=== PATIENT | female | born 1935 | race Caucasian/White ===

== ENCOUNTER → 2017-09-12 | Outpatient (CLI) | payer MEDICARE, BC ==
--- NOTE | 2017-09-12 13:14 | US ---
EXAMINATION TYPE: US venous doppler duplex LE RT DATE OF EXAM: 09/12/2017 12:38 PM COMPARISON: NONE CLINICAL HISTORY: M79.661 RT CALF PAIN. SIDE PERFORMED: Right TECHNIQUE: The lower extremity deep venous system is examined utilizing real time linear array sonog trina with graded compression, doppler sonography and color-flow sonography. VESSELS IMAGED: External Iliac Vein (EIV) Common Femoral Vein Deep Femoral Vein Greater Saphenous Vein * Femoral Vein Popliteal Vein Small Saphenous Vein * Proximal Calf Veins (* superficial vessels) Limited due to Pt ability to hold leg positions due to pain and narrow vessels. Right Leg: Negative for DVT Grayscale, color doppler, spectral doppler imaging performed of the deep veins of the right lower ext remity. There is normal flow, compressibility, vascular waveforms. IMPRESSION: No sonographic evidence of deep venous thrombosis within the right lower extremity.
== END | disposition home or self-care (01) ==
LOC: RADUSWWP 12:02
PROVIDERS: ATTEND Internal Medicine Rheumatology
DX: M79.661 Pain in right lower leg (principal)

== ENCOUNTER → 2018-05-05 | Outpatient (CLI) | payer MEDICARE, BC ==
--- NOTE | 2018-05-06 06:53 | CT ---
EXAMINATION TYPE: CT soft tissue neck w con DATE OF EXAM: 05/05/2018 COMPARISON: None HISTORY: 83-year-old female Left side lump and swelling TECHNIQUE: Contiguous axial scanning of the soft tissues of the neck performed with IV Contrast, yousif ent injected with 100 mL of Isovue 300. Coronal/sagittal reconstructions performed. CT DLP: 372 mGycm Automated exposure control for dose reduction was used. FINDINGS: Visualized intracranial structures, orbits and globes, paranasal sinuses, and mastoid air cells appea r clear. The nasopharynx is clear. Retropharyngeal course of the right ICA. Oropharynx appears clear. The epiglottis and prevertebral soft tissues are within normal limits. The glottic and subglottic structures are clear. Moderate emphysematous change in the visualized uppe r lungs. Subcentimeter hypodense nodules within the thyroid gland measuring up to 7 mm. The submandibular glands are satisfactory. Mild atrophy of the parotid glands. Atherosclerotic calcifications at the right carotid bifurcation probably causing a moderate stenosis at the level of the carotid bulb. There is some incidental focal ectasia and tortuosity of the left external jugular vein along the pos terior margin of the left sternocleidomastoid at the mid neck level, refer to axial image 49. No cervical lymphadenopathy or suspicious neck masses identified. Bones: Moderate spondylotic change mid to lower cervical spine. IMPRESSION: 1. SYMMETRICAL APPEARANCE TO THE SUBMANDIBULAR GLANDS AND BILATERAL SYMMETRICAL, MILDLY ATROPHIC PARO TID GLANDS. NO SIALOLITH OR ABNORMAL INFLAMMATION IS IDENTIFIED. 2. NO CERVICAL LYMPHADENOPATHY OR SUSPICIOUS NECK MASSES SEEN. 3. ATHEROSCLEROTIC CALCIFICATIONS AT THE RIGHT CAROTID BIFURCATION LIKELY EXAGGERATING TO A MODERATE PROXIMAL RIGHT ICA STENOSIS. 4. COPD.
== END ==
LOC: RADCTMAIN 12:39
PROVIDERS: ATTEND Otolaryngology
DX: I65.21 Occlusion and stenosis of right carotid artery (principal); R93.89 Abnormal findings on diagnostic imaging of other specified body structures
CPT/HCPCS: 82565; 84520; 70491; 36415; Q9967

== ENCOUNTER → 2018-05-26 | Outpatient (CLI) | payer MEDICARE, BC ==
--- NOTE | 2018-05-26 11:08 | US ---
EXAMINATION TYPE: US thyroid st tissue head/neck DATE OF EXAM: 05/26/2018 COMPARISON: US 2016, CT 2019 CLINICAL HISTORY: E04.2 Nontoxic multinodular goiter. Follow up thyroid nodules, on thyroid meds GLAND SIZE: Right Lobe: 2.9 x 1.3 x 1.3 cm Overall Parenchyma: heterogenous Left Lobe: 2.9 x 1.0 x 1.1 cm Overall Parenchyma: heterogeneous Isthmus Thickness: 0.2 cm NODULES RIGHT: # of nodules measured on right: 4 1. 0.9 X 0.9 x 0.8 cm hypoechoic complex nodule at the upper pole with poorly defined margins. This nodule is wider than tall and shows intranodular vascularity. Prior size: 0.9 x 0.8 x 1.0 cm 2. 0.6 X 0.5 x 0.5 cm hypoechoic solid nodule at the upper pole with well-defined margins. This nodu le is wider than tall and shows intranodular vascularity. Prior size: 0.6 x 0.4 x 0.6 cm 3. 0.6 X 0.4 x 0.6 cm hypoechoic solid nodule at the lower pole with well-defined margins. This nodu le is wider than tall and shows intranodular vascularity. Prior size: 0.6 x 0.4 x 0.6 cm 4. 0.8 X 0.4 x 0.7 cm hypoechoic cystic nodule at the mid pole with well-defined margins. This nodul e is wider than tall and shows no intranodular vascularity. Prior size: no previous LEFT: # of nodules measured on left: 2 1. 0.7 X 0.7 x 0.5 cm hypoechoic solid nodule at the mid pole with well-defined margins. This nodul e is taller than wide and shows intranodular vascularity. Prior size: 0.8 x 0.7 x 0.6 cm 2. 0.6 X 0.4 x 0.6 cm hypoechoic cystic nodule at the upper pole with well-defined margins. This nod ule is wider than tall and shows no intranodular vascularity. Prior size: 0.7 x 0.4 x 0.5 cm ISTHMUS: # of nodules measured in the isthmus: 0 Bilateral neck scanned, no evidence of lymphadenopathy. Heterogeneous small size thyroid redemonstrated with scattered small bilateral nodules. IMPRESSION: As above, no new greater than 1 cm solid or cystic nodules identified. EXAMINATION TYPE: US thyroid st tissue head/neck DATE OF EXAM: 05/26/2018 COMPARISON: NONE CLINICAL HISTORY: E04.2 Nontoxic multinodular goiter. GLAND SIZE: Right Lobe: cm Overall Parenchyma: Left Lobe: cm Overall Parenchyma: Isthmus Thickness: cm NODULES RIGHT: # of nodules measured on right: 1. X x cm nodule at the pole with margins; . This nodule is and shows . Prior size: x x cm 2. X x cm nodule at the pole with margins; . This nodule is and shows . Prior size: x x cm 3. X x cm nodule at the pole with margins; . This nodule is and shows . Prior size: x x cm 4. X x cm nodule at the pole with margins; . This nodule is and shows . Prior size: x x cm LEFT: # of nodules measured on left: 1. X x cm nodule at the pole with margins; . This nodule is and shows . Prior size: x x cm 2. X x cm nodule at the pole with margins; . This nodule is and shows . Prior size: x x cm 3. X x cm nodule at the pole with margins; . This nodule is and shows . Prior size: x x cm 4. X x cm nodule at the pole with margins; . This nodule is and shows . Prior size: x x cm ISTHMUS: # of nodules measured in the isthmus: 1. X x cm nodule at the pole with margins; . This nodule is and shows . Prior size: x x cm Bilateral neck scanned, no evidence of lymphadenopathy. IMPRESSION:
== END | disposition home or self-care (01) ==
LOC: RADUSWWP 10:11
PROVIDERS: ATTEND Internal Medicine Endocrinology, Diabetes & Metabolism
DX: E04.2 Nontoxic multinodular goiter (principal)
CPT/HCPCS: 76536

== ENCOUNTER 2018-07-18 10:39 | Day surgery (SDC) | payer MEDICARE, BC ==
[~2018-07-18 10:39] MED LIST: LACTATED RINGERS 1,000 ML IV SCH; LIDOCAINE 1% 20 ML VIAL (10MG/ML) FOR IV START INTRADERMA PRN
[2018-07-18 11:20] LABS: Glucose,Whole Blood 93 mg/dL (75-99)
[2018-07-18 11:23] VITALS: RESP 18; TEMP 98.1
[2018-07-18] MEDS ORDERED: LACTATED RINGERS 1,000 ML IV ONE (11:24)
[2018-07-18] MEDS ORDERED: PROPOFOL 10 MG/ML 20 ML VIAL IV ONE (12:22)
[2018-07-18] MEDS ORDERED: LIDOCAINE 1% INJ 10MG/ML (20 ML MDV) ONE (12:22)
--- NOTE | 2018-07-18 12:33 | P.PCN ---
Date of Procedure: 07/18/18 Procedure(s) Performed: BRIEF HISTORY: Patient is a 83-year-old, pleasant, female, scheduled for an upper endoscopy as a part of value should of intermittent dysphagia to solids. She does have long-standing history of GERD has been on Prilosec 20 mg daily for several years. She is scheduled for an upper endoscopy with possible dilation today. PROCEDURE PERFORMED: Esophagogastroduodenoscopy and biopsy. PREOPERATIVE DIAGNOSIS: Long-standing history of GERD and intermittent dysphagia to solidsIV sedation per anesthesia. PROCEDURE: After informed consent was obtained, the patient was brought into the endoscopy unit. IV sedation was administered by Anesthesia under continuous monitoring. Initially the Olympus GIF-140 video endoscope was inserted into the mouth. Esophagus intubated without any difficulty. It was gradually advanced into the stomach and duodenum and carefully examined. The bulb and the second part of the duodenum appeared normal. The scope at this time was withdrawn to the stomach, adequately insufflated with air, and upon careful examination, mucosa of the antrum had mild ascites and biopsies were done from this area. There was a large hiatal hernia noted and most of the body, cardia and the funwhere located intrathoracic daily.he scope was then withdrawn into the eso phagus. The GE junction was located at 30 cm from the incisors. The esophagus appeared normal. biopsies were done from the distal esophagus .There were no erosions or ulcerations seen and the patient tolerated the procedure well. IMPRESSION: 1. Large hiatal hernia 2. Mild antral gastritis 3. No evidence of esophagitis or esophageal stricture RECOMMENDATIONS: The findings of this examination were discussed with the patient as well as her family. She will continue with her current medications, advised on small frequent meals and follow antireflux measures.
[2018-07-18 12:53] VITALS: BP 182/68; PULSE 61
== END 2018-07-18 13:35 | disposition home or self-care (01) ==
LOC: ORWHC2ENDO 10:39
PROVIDERS: ATTEND Internal Medicine Gastroenterology
DX: K29.50 Unspecified chronic gastritis without bleeding (principal); K21.0 Gastro-esophageal reflux disease with esophagitis; K44.9 Diaphragmatic hernia without obstruction or gangrene; R18.8 Other ascites; R13.10 Dysphagia, unspecified; I10 Essential (primary) hypertension; E78.5 Hyperlipidemia, unspecified; E07.9 Disorder of thyroid, unspecified; Z79.890 Hormone replacement therapy; Z79.52 Long term (current) use of systemic steroids; Z79.899 Other long term (current) drug therapy
CPT/HCPCS: 88305; 43239; J2001; J2704

== ENCOUNTER → 2019-06-03 | Outpatient (CLI) | payer MEDICARE, BC ==
--- NOTE | 2019-06-03 13:56 | US ---
EXAMINATION TYPE: US thyroid st tissue head/neck DATE OF EXAM: 06/03/2019 COMPARISON: 05/26/2018 CLINICAL HISTORY: E04.2 Nontoxic multinodular goiter. Goiter GLAND SIZE: Right Lobe: 3.6 x 1.5 x 1.3 cm Overall Parenchyma: heterogenous Left Lobe: 3.4 x 0.9 x 1.4 cm Overall Parenchyma: heterogeneous Isthmus Thickness: 0.3 cm NODULES RIGHT: # of nodules measured on right: 4 1. 0.7 X 0.7 x 0.7 cm hypoechoic complex nodule at the upper pole with poorly defined margins; . T his nodule is wider than tall and shows intranodular vascularity. Prior size: 0.9 x 0.9 x 0.8 cm 2. 0.6 X 0.5 x 0.5 cm hypoechoic solid nodule at the upper pole with well-defined margins; . This n odule is wider than tall and shows intranodular vascularity. Prior size: 0.6 x 0.5 x 0.5 cm 3. 0.6 X 0.4 x 0.5 cm hypoechoic solid nodule at the lower pole with well-defined margins; . This n odule is wider than tall and shows intranodular vascularity. Prior size: 0.6 x 0.4 x 0.6 cm 4. 0.8 X 0.5 x 0.6 cm cystic nodule at the mid pole with well-defined margins; . This nodule is wid er than tall and shows no intranodular vascularity. Prior size: 0.8 x 0.4 x 0.7 cm LEFT: # of nodules measured on left: 2 1. 0.8 X 0.6 x 0.6 cm hypoechoic solid nodule at the mid pole with well-defined margins; . This no dule is taller than wide and shows intranodular vascularity. Prior size: 0.7 x 0.7 x 0.5 cm 2. 0.7 X 0.4 x 0.6 cm cystic nodule at the upper pole with well-defined margins; . This nodule is w ider than tall and shows no intranodular vascularity. Prior size: 0.6 x 0.4 x 0.6 cm ISTHMUS: # of nodules measured in the isthmus: 0 IMPRESSION: Correlate for thyroiditis. Multinodular thyroid noted with all nodules measuring less than 1 cm.
== END | disposition home or self-care (01) ==
LOC: RADUSMAIN 12:39
PROVIDERS: ATTEND Internal Medicine Endocrinology, Diabetes & Metabolism
DX: E04.2 Nontoxic multinodular goiter (principal)
CPT/HCPCS: 76536

== ENCOUNTER → 2019-06-03 | Outpatient (CLI) | payer MEDICARE, BC ==
[2019-06-03 14:10] LABS: Basophils % (A) 1 %; Eosinophils # (A) 0.2 k/uL (0-0.7); Eosinophils % (A) 2 %; HCT 39.3 % (34.0-46.0); HGB 12.7 gm/dL (11.4-16.0); Lymphocytes % (A) 26 %; MCH 29.7 pg (25.0-35.0); MCHC 32.4 g/dL (31.0-37.0); MCV 91.8 fL (80.0-100.0); Monocytes # (A) 0.6 k/uL (0-1.0); Monocytes % (A) 8 %; Neutrophils # (A) 4.7 k/uL (1.3-7.7); Neutrophils % (A) 61 %; Platelet Count 214 k/uL (150-450); RBC 4.28 m/uL (3.80-5.40); RDW 14.7 % (11.5-15.5); WBC 7.7 k/uL (3.8-10.6)
[2019-06-03 15:19] LABS: Erythrocyte Sedimentation Rate 28 mm/hr (0-20)
[2019-06-03 18:56] LABS: ALT 17 U/L (8-44); AST 30 U/L (13-35); African American GFR (CKD) 68.1 (60.0-200.0); C Reactive Protein <0.4 mg/dL (0.0-0.8); Non-African American GFR(CKD) 58.7 (60.0-200.0)
== END | disposition home or self-care (01) ==
LOC: LABWHC1 13:20
PROVIDERS: ATTEND Internal Medicine Endocrinology, Diabetes & Metabolism
DX: E03.8 Other specified hypothyroidism (principal); M05.79 Rheumatoid arthritis with rheumatoid factor of multiple sites without organ or systems involvement; Z79.899 Other long term (current) drug therapy
CPT/HCPCS: 36415; 82040; 82565; 84443; 84450; 84460; 84520; 85025; 85652; 86140

== ENCOUNTER → 2020-02-01 | Outpatient (CLI) | payer MEDICARE, BC ==
--- NOTE | 2020-02-03 11:22 | MM ---
Reason for exam: screening (asymptomatic). Last mammogram was performed 1 year and 10 months ago. History: Patient is postmenopausal and is nulliparous. Cyst aspiration of both breasts, 1989. Physical Findings: A clinical breast exam by your physician is recommended on an annual basis and results should be correlated with mammographic findings. MG 3D Screening Mammo W/Cad Bilateral CC and MLO view(s) were taken. Prior study comparison: April 07, 2018, mammogram, performed at [facility]. February 18, 2017, mammogram, performed at [facility]. The breast tissue is heterogeneously dense. This may lower the sensitivity of mammography. Benign appearing coarse calcifications in the right breast. No significant changes when compared with prior studies. ASSESSMENT: Benign, BI-RAD 2 RECOMMENDATION: Routine screening mammogram of both breasts in 1 year.
== END | disposition home or self-care (01) ==
LOC: RADMAMWWP 10:36
PROVIDERS: ATTEND Family Medicine
DX: Z12.31 Encounter for screening mammogram for malignant neoplasm of breast (principal)
CPT/HCPCS: 77063; 77067

== ENCOUNTER → 2020-05-02 | Outpatient (CLI) | payer MEDICARE, BC ==
--- NOTE | 2020-05-02 12:18 | FL ---
EXAMINATION TYPE: FL barium swallow DATE OF EXAM: 05/02/2020 CLINICAL INDICATION: 85-year-old female R13.10, dysphasia, vomiting worsening over the last 8 months. Weight loss over the last month. COMPARISON: None Total Fluoroscopy Time: 3 minutes 17 seconds Total images: 50 FINDINGS: The swallowing mechanism is normal. There is hypertrophic facet arthropathy with grade 1 anterolisthe sis at C4-C5. No diverticulum or obstruction is seen at the level of the hypopharynx or cervical esop hagus. The thoracic portion shows severe tertiary peristalsis and prolonged pooling of contrast throughout t he esophagus despite remaining upright. There is a moderate to large hiatal hernia involving greater than two thirds of the stomach. This has a very tortuous course and results in delayed passage of contrast from the herniated portion of the stomach below the diaphragm. Episodes of back filling into the hernia is visualized. Due to the filling and delayed clearance of the hiatal hernia and thoracic esophagus, effervescent gr anules were not given and the patient was not imaged in the prone and supine position. IMPRESSION: 1. Moderate to large hiatal hernia involving over two thirds of the stomach. The herniated portion of the stomach is very tortuous. 2. Severe dysmotility/presbyesophagus with prolonged pooling of contrast throughout the esophagus tosin pite the patient being upright. 3. Backfilling of the hiatal hernia. Due to persistent contrast column in the esophagus, unable to as sess for gastroesophageal reflux. 4. Air contrast was not utilized due to the very poor motility. No obvious large filling defect is id entified. Consider direct visualization for further assessment.
== END | disposition home or self-care (01) ==
LOC: RADUSWWP 09:42
PROVIDERS: ATTEND Internal Medicine Gastroenterology
DX: K44.9 Diaphragmatic hernia without obstruction or gangrene (principal); K22.8 Other specified diseases of esophagus
CPT/HCPCS: 74220

== ENCOUNTER → 2020-09-15 | Outpatient (CLI) | payer MEDICARE, BC ==
--- NOTE | 2020-09-15 12:03 | CT ---
EXAMINATION TYPE: CT facial bones wo con DATE OF EXAM: 09/15/2020 COMPARISON: NONE HISTORY: Chronic Sinusitis. Left facial swelling and pain. CT DLP: 961.7 mGycm. Automated Exposure Control for Dose Reduction was Utilized. TECHNIQUE: CT scan of the sinuses is performed without contrast, axial images are obtained, coronal r eformatted images are also reviewed. FINDINGS: The paranasal sinuses including the frontal, ethmoid, sphenoid, and maxillary sinuses bila terally remain well-aerated without suspicious opacification or air-fluid levels. The ostiomeatal co mplex remains patent bilaterally on the coronal images. Scleral calcification bilateral globes is now present. Moderate calcified plaque of the petrous and s upraclinoid segment distal internal carotid arteries bilaterally is redemonstrated. Visualized brain parenchyma shows mild to moderate diffuse cerebral atrophy and chronic small vessel ischemic changes. Hyperostosis frontalis is seen. No suspicious opacification mastoid air cells bilaterally. Imaging extends through the mandible. There are multiple cavitary fillings involving the maxillary an d mandibular causing streak artifact. Metallic BB jaime the area of concern in left submandibular reg ion axial image 9 series 3. Submandibular gland on the left is symmetric and within normal limits. Th e right side. No adjacent fat stranding or concerning solid or cystic mass or fluid collection is see n. There is moderate calcified plaque partially imaged in the carotid bulbs on the inferior most imag es below this. Multilevel uncovertebral facet degenerative changes in the upper to mid cervical spine are partially imaged. IMPRESSION: No suspicious mass on noncontrast CT at the left submandibular level. No significant acu te or chronic paranasal sinus disease.
== END | disposition home or self-care (01) ==
LOC: RADCTMAIN 09:33
PROVIDERS: ATTEND Otolaryngology
DX: J32.9 Chronic sinusitis, unspecified (principal)
CPT/HCPCS: 70486

== ENCOUNTER → 2020-12-28 | Outpatient (CLI) | payer MEDICARE, BC ==
[2020-12-28 19:13] LABS: Basophils # (A) 0.03 X 10*3/uL (0.00-0.10); Basophils % (A) 0.5 %; Eosinophils # (A) 0.17 X 10*3/uL (0.04-0.35); Eosinophils % (A) 2.9 %; HCT 37.2 % (37.2-46.3); HGB 12.1 g/dL (12.0-15.0); Lymphocytes # (A) 2.02 X 10*3/uL (0.90-5.00); Lymphocytes % (A) 34.1 %; MCH 30.1 pg (27.0-32.0); MCHC 32.5 g/dL (32.0-37.0); MCV 92.5 fL (80.0-97.0); Mean Platelet Volume 10.7 fL (9.5-12.2); Monocytes # (A) 0.72 X 10*3/uL (0.20-1.00); Monocytes % (A) 12.1 %; Neutrophils # (A) 2.94 X 10*3/uL (1.80-7.70); Neutrophils % (A) 49.6 %; Platelet Count 194 X 10*3/uL (140-440); RBC 4.02 X 10*6/uL (4.10-5.20); RDW 16.2 % (11.5-14.5); WBC 5.93 X 10*3/uL (4.50-10.00)
[2020-12-28 21:08] LABS: Erythrocyte Sedimentation Rate 26 mm/Hr (0-30)
[2020-12-29 02:23] LABS: African American GFR (CKD) 67.6 (60.0-200.0); Albumin 4.4 g/dL (3.80-4.90); Anion Gap 14.4 mmol/L (4.00-12.00); BUN/Creat Ratio 18.89 Ratio (12.00-20.00); Calcium 9.2 mg/dL (8.7-10.3); Carbon Dioxide 21.6 mmol/L (21.6-31.8); Globulin 2.2 g/dL (1.6-3.3); Non-African American GFR(CKD) 58.3 (60.0-200.0); Potassium 4.1 mmol/L (3.5-5.5); Total Bilirubin 0.7 mg/dL (0.3-1.2); Total Protein 6.6 g/dL (6.2-8.2)
== END | disposition home or self-care (01) ==
LOC: LABWHC1 10:53
PROVIDERS: ATTEND Internal Medicine Rheumatology
DX: M05.29 Rheumatoid vasculitis with rheumatoid arthritis of multiple sites (principal); Z79.899 Other long term (current) drug therapy; R63.4 Abnormal weight loss
CPT/HCPCS: 36415; 80053; 85025; 85652

== ENCOUNTER → 2020-12-28 | Outpatient (CLI) | payer MEDICARE, BC ==
--- NOTE | 2020-12-28 13:00 | XR ---
EXAM TYPE: LUMBAR SPINE X RAY SERIES COMPARISON: NONE HISTORY: Pain TECHNIQUE: 3 views are submitted. FINDINGS: Alignment is anatomic. The pedicles are intact. The transverse processes are intact. There is a cu rvature of the spine with severe degenerative disc disease at all levels and advanced facet arthropat hy. There is diffuse osteopenia. Vascular calcifications noted. Multilevel facet arthropathy. IMPRESSION: 1. Scoliosis with severe degenerative disc disease and facet arthropathy at all levels.
--- NOTE | 2020-12-28 13:02 | XR ---
EXAMINATION TYPE: XR pelvis AP view DATE OF EXAM: 12/28/2020 COMPARISON: NONE HISTORY: Pain The osseous structures are intact and the joint spaces are preserved. No acute fracture is seen. Sev ere arthropathy of the left hip with complete loss of joint space of the right hip and remodeling of the femoral head progressed from the prior exam. Severe degenerative change lower lumbar spine. Diffu se osteopenia with vascular calcification patient's in the pelvis. SI joints symmetric. IMPRESSION: 1. Complete loss of joint space of the right hip with remodeling of the femoral head progressed from the prior exam. Osteonecrosis in the differential diagnosis. 2. Severe left hip arthropathy. 3. Severe degenerative disc disease lower lumbar spine.
--- NOTE | 2020-12-28 13:06 | XR ---
EXAMINATION TYPE: XR ribs RT DATE OF EXAM: 12/28/2020 COMPARISON: NONE HISTORY: Pain TECHNIQUE: 4 views submitted FINDINGS: Calcified granuloma right apex. Arthropathy of the shoulder. Linear subsegmental changes ri ght lung base. Degenerative change of vertebral column. IMPRESSION: No acute displaced rib fracture
== END | disposition home or self-care (01) ==
LOC: RADXRMAIN 11:59
PROVIDERS: ATTEND Internal Medicine Rheumatology
DX: R07.81 Pleurodynia (principal); M51.36 Other intervertebral disc degeneration, lumbar region; M47.816 Spondylosis without myelopathy or radiculopathy, lumbar region; M41.86 Other forms of scoliosis, lumbar region; M16.12 Unilateral primary osteoarthritis, left hip
CPT/HCPCS: 72100; 72170

== ENCOUNTER → 2021-01-24 | Outpatient (CLI) | payer MEDICARE, BC ==
--- NOTE | 2021-01-24 11:05 | US ---
EXAMINATION TYPE: US thyroid st tissue head/neck DATE OF EXAM: 01/24/2021 COMPARISON: US 2019 CLINICAL HISTORY: E04.2 Nontoxic multinodular goiter. Thyroid nodules, patient on thyroid meds GLAND SIZE: Right Lobe: 1.7 x 2.7 x 1.1 cm Overall Parenchyma: heterogenous Left Lobe: 1.7 x 2.9 x 1.0 cm Overall Parenchyma: heterogeneous Isthmus Thickness: 0.1 cm NODULES RIGHT: # of nodules measured on right: multiple subcentimeter nodules with largest described below 1. 0.8 X 0.5 x 0.7 cm, mid , cystic or almost completely cystic, hypoechoic nodule, which is wider than tall, with smooth margins, without echogenic foci. Prior size: 0.8 x 0.5 x 0.6 cm LEFT: # of nodules measured on left: multiple subcentimeter nodules with largest described below 1. 0.6 X 0.5 x 0.5 cm, mid medial, cystic or almost completely cystic, hypoechoic nodule, which is wider than tall, with smooth margins, without echogenic foci. Prior size: 0.7 x 0.4 x 0.6 cm ISTHMUS: # of nodules measured in the isthmus: 0 Bilateral neck scanned, no evidence of lymphadenopathy. Fairly homogeneous small size thyroid on images saved without suspicious greater than 5 mm solid nodu le. Small subcentimeter cystic nodules are redemonstrated. IMPRESSION: As above. No significant change from most recent study. 2017 ACR TI-RADS LEVEL: *Highest TI-RADS level nodule reported
== END | disposition home or self-care (01) ==
LOC: RADUSWWP 09:47
PROVIDERS: ATTEND Internal Medicine Endocrinology, Diabetes & Metabolism
DX: E04.2 Nontoxic multinodular goiter (principal)
CPT/HCPCS: 36415; 76536; 84443

== ENCOUNTER → 2022-07-23 | Outpatient (CLI) | payer MEDICARE, BC ==
--- NOTE | 2022-07-23 13:14 | XR ---
EXAMINATION TYPE: XR cervical spine w flex/ext DATE OF EXAM: 07/23/2022 COMPARISON: NONE HISTORY: Pain TECHNIQUE: Four views are submitted. FINDINGS: The odontoid is intact. There are no compression deformities. The prevertebral soft tissue structur es are within normal limits. As severe facet arthropathy at multiple levels. There is severe degener ative disc disease C5-C6, C6-7 and C7-T1. There is a multilevel bilateral foraminal encroachment. Flexion and extension views demonstrate an anterior listhesis of C4 relative to C5 on all images whic h appears slightly more pronounced on extension images. Flexion views demonstrate anterior listhesis of 1 to 2 mm of C3 on C4 IMPRESSION: 1. Diffuse osteopenia with severe multilevel facet arthropathy and degenerative disc disease resultin g in multilevel foraminal encroachment. 2. Anterior listhesis of C4 relative to C5 which appears slightly more pronounced on extension views.
[2022-07-23 15:34] LABS: Basophils # (A) 0.05 X 10*3/uL (0.00-0.10); Basophils % (A) 0.7 %; Eosinophils # (A) 0.17 X 10*3/uL (0.04-0.35); Eosinophils % (A) 2.4 %; HCT 36.2 % (37.2-46.3); HGB 11.6 g/dL (12.0-15.0); Lymphocytes # (A) 1.25 X 10*3/uL (0.90-5.00); Lymphocytes % (A) 17.7 %; MCH 30.9 pg (27.0-32.0); MCV 96.3 fL (80.0-97.0); Mean Platelet Volume 10.7 fL (9.5-12.2); Monocytes # (A) 0.83 X 10*3/uL (0.20-1.00); Monocytes % (A) 11.8 %; NRBC Per 100 WBC 0 /100 WBCS (0.0-0.0); Neutrophils # (A) 4.69 X 10*3/uL (1.80-7.70); Neutrophils % (A) 66.4 %; Platelet Count 215 X 10*3/uL (140-440); RBC 3.76 X 10*6/uL (4.10-5.20); RDW 13.4 % (11.5-14.5); WBC 7.06 X 10*3/uL (4.50-10.00)
[2022-07-23 16:41] LABS: African American GFR (CKD) 67.8 (60.0-200.0); Albumin 4.3 g/dL (3.8-4.9); Albumin/Globulin Ratio 1.73 (1.60-3.17); Anion Gap 14.9 mmol/L (10.00-18.00); BUN/Creat Ratio 19.95 Ratio (12.00-20.00); Blood Urea Nitrogen 17.7 mg/dL (9.0-27.0); Calcium 9.8 mg/dL (8.7-10.3); Carbon Dioxide 23.7 mmol/L (20.0-27.5); Globulin 2.5 g/dL (1.6-3.3); Non-African American GFR(CKD) 58.5 (60.0-200.0); Potassium 4.6 mmol/L (3.5-5.5); Total Bilirubin 0.5 mg/dL (0.30-1.20); Total Protein 6.8 g/dL (6.2-8.2)
[2022-07-23 16:44] LABS: Erythrocyte Sedimentation Rate 34 mm/Hr (0-30)
== END | disposition home or self-care (01) ==
LOC: RADXRMAIN 10:23
PROVIDERS: ATTEND Internal Medicine Rheumatology
DX: M50.322 Other cervical disc degeneration at C5-C6 level (principal); M47.812 Spondylosis without myelopathy or radiculopathy, cervical region; M43.12 Spondylolisthesis, cervical region; M08.29 Juvenile rheumatoid arthritis with systemic onset, multiple sites; Z79.899 Other long term (current) drug therapy; M99.71 Connective tissue and disc stenosis of intervertebral foramina of cervical region
CPT/HCPCS: 72052; 80053; 84436; 84443; 84480; 85025; 85652

== ENCOUNTER 2022-12-28 16:20 | Inpatient (IN) | payer MEDICARE, BC ==
[2022-12-28] MEDS ORDERED: SODIUM CHLORIDE 0.9% 1,000 ML IV ONE ×2 (18:31→20:48)
--- NOTE | 2022-12-28 18:42 | ED ---
General Adult HPI - General Chief complaint: Recheck/Abnormal Lab/Rx Stated complaint: wieght loss-sent by PCP Source: patient, family, RN notes reviewed, old records reviewed Mode of arrival: ambulatory Limitations: no limitations - History of Present Illness Initial comments: This is an 87-year-old female who presents emergency Department complaining that the cousin for hiatal hernia and her esophageal stricture she's been unable to eat and she is losing weight feeling weaker and according to her primary medical care doctor with consultation to the [place] neurologist he would like the patient to come in and get a PEG tube placed. Patient states she's unable to eat anything without vomiting it up a little bit later. Patient states even liquids are now coming back up. Patient denies any fever chills. Patient denies abdominal pain patient denies any chest pain difficulty breathing or shortness of breath. - Related Data Home Medications Medication Instructions Recorded Confirmed Esomeprazole Magnesium [NexIUM] 40 mg PO DAILY 08/31/13 07/16/18 Levothyroxine Sodium [Synthroid] 50 mcg PO QAM 08/31/13 07/16/18 Ascorbic Acid [Vitamin C] 500 mg PO DAILY 10/05/13 07/16/18 atenoloL [Atenolol] 25 mg PO QAM 01/11/14 07/16/18 DULoxetine HCL [Cymbalta] 60 mg PO DAILY 04/05/14 07/16/18 Cholecalciferol [Vitamin D3] 2,000 unit PO DAILY 05/11/14 07/16/18 Hydrocodone/Acetaminophen [Bishop 1 each PO Q8H PRN 03/09/15 07/16/18 5-325] polyethylene glycoL 3350 [Miralax] 17 gm PO DAILY 03/09/15 07/16/18 Atorvastatin [Lipitor] 80 mg PO DAILY 07/16/18 07/16/18 Gabapentin [Neurontin] 300 mg PO TID 07/16/18 07/16/18 Gentamicin 0.1% Cream 1 applic TOPICAL DAILY 07/16/18 07/16/18 Oxybutynin Chloride [Ditropan XL] 5 mg PO DAILY 07/16/18 07/16/18 Tofacitinib Citrate [Xeljanz] 5 mg PO BID 07/16/18 07/16/18 lisinopriL [Prinivil] 5 mg PO DAILY 07/16/18 07/16/18 predniSONE 2.5 mg PO Q48H 07/16/18 07/16/18 Allergies Allergy/AdvReac Type Severity Reaction Status Date / Time No Known Allergies Allergy Verified 12/28/22 17:39 Review of Systems ROS Statement: Those systems with pertinent positive or pertinent negative responses have been documented in the HPI. ROS Other: All systems not noted in ROS Statement are negative. Past Medical History Past Medical History: GERD/Reflux, Hyperlipidemia, Hypertension, Osteoarthritis (OA), Rheumatoid Arthritis (RA), Thyroid Disorder Additional Past Medical History / Comment(s): diverticulitis,chronic neck pain, hx ulcerative esophagus, anemiA, WOUND TO BOTTOM OF LT FOOT-, CHRONIC HIP PAIN History of Any Multi-Drug Resistant Organisms: None Reported Past Surgical History: Adenoidectomy, Joint Replacement, Tonsillectomy Additional Past Surgical History / Comment(s): BILATERAL KNEES REPLACEMENTS,EXPLORATORY LAPAROTOMY, EGD & colonoscopy, DRAINED 150 CC FLUID FROM RT KNEE AT [facility] YEARS AGO , BILAT CATARACTS Past Anesthesia/Blood Transfusion Reactions: No Reported Reaction Past Psychological History: Anxiety, Depression Smoking Status: Former smoker Past Alcohol Use History: None Reported Past Drug Use History: None Reported - Past Family History Mother Family Medical History: No Reported History General Exam - General Exam Comments Initial Comments: GENERAL: Patient is well-developed and well-nourished. Patient is nontoxic and well- hydrated and is in mild distress. ENT: Neck is soft and supple. No significant lymphadenopathy is noted. Oropharynx is clear. Moist mucous membranes. Neck has full range of motion without eliciting any pain. EYES: The sclera were anicteric and conjunctiva were pink and moist. Extraocular movements were intact and pupils were equal round and reactive to light. Eyelids were unremarkable. PULMONARY: Unlabored respirations. Good breath sounds bilaterally. No audible rales rhonchi or wheezing was noted. CARDIOVASCULAR: There is a regular rate and rhythm without any murmurs gallops or rubs. ABDOMEN: Soft and nontender with normal bowel sounds. SKIN: Skin is clear with no lesions or rashes and otherwise unremarkable. NEUROLOGIC: Patient is alert and oriented x3. Cranial nerves II through XII are grossly intact. Motor and sensory are also intact. Normal speech, volume and content. Symmetrical smile. MUSCULOSKELETAL: Normal extremities with adequate strength and full range of motion. LYMPHATICS: No significant lymphadenopathy is noted PSYCHIATRIC: Normal psychiatric evaluation. Limitations: no limitations Course Vital Signs 12/28/22 17:35 Temperature 98.0 F Pulse Rate 63 Respiratory 18 Rate Blood Pressure 144/65 O2 Sat by Pulse 99 Oximetry Medical Decision Making - Medical Decision Making Was pt. sent in by a medical professional or institution (, OLIVIER, SOFTWARE LICENSING ANALYST, urgent care, hospital, or detention...) When possible be specific @ -Patient's primary medical care doctor sent to the emergency department Did you speak to anyone other than the patient for history (EMS, parent, family, police, friend...)? What history was obtained from this source @ -No Did you review nursing and triage notes (agree or disagree)? Why? @ -I reviewed and agree with nursing and triage notes Were old charts reviewed (outside hosp., previous admission, EMS record, old EKG, old radiological studies, urgent care reports/EKG's, detention records)? Report findings @ -I reviewed prior lab work prior charts on this patient Differential Diagnosis (chest pain, altered mental status, abdominal pain women, abdominal pain men, vaginal bleeding, weakness, fever, dyspnea, syncope, headache, dizziness, GI bleed, back pain, seizure, CVA, palpatations, mental health, musculoskeletal)? @ -Differential Weakness: Hypoglycemia, shock, sepsis, hyponatremia, anemia, infection, CT, ETOH, adverse medicine reaction, overdose, stroke, this is not meant to be an all-inclusive list. EKG interpreted by me (3pts min.). @ -As above X-rays interpreted by me (1pt min.). @ -None done CT interpreted by me (1pt min.). @ -None done U/S interpreted by me (1pt. min.). @ -None done What testing was considered but not performed or refused? (CT, X-rays, U/S, labs)? Why? @ -None What meds were considered but not given or refused? Why? @ -None Did you discuss the management of the patient with other professionals (professionals i.e. OLIVIER [place], SOFTWARE LICENSING ANALYST, lab, RT, psych nurse, director of social services, dicer machine operator, teacher, aboriginal liaison officer, upper caser)? Give summary @ -I spoke with patient is hospitalist agreed to admit the patient Was smoking cessation discussed for >3mins.? @ -No Was critical care preformed (if so, how long)? @ -No Were there social determinants of health that impacted care today? How? (Homelessness, low income, unemployed, alcoholism, drug addiction, transportation, low edu. Level, literacy, decrease access to med. care, custodial, rehab)? @ -No Was there de-escalation of care discussed even if they declined (Discuss DNR or withdrawal of care, Hospice)? DNR status @ -No What co-morbidities impacted this encounter? (DM, HTN, Smoking, COPD, CAD, Cancer, CVA, ARF, Chemo, Hep., AIDS, mental health diagnosis, sleep apnea, morbid obesity)? @ -None Was patient admitted / discharged? Hospital course, mention meds given and route, prescriptions, significant lab abnormalities, going to OR and other pertinent info. @ -Patient was sent in to have a PEG tube evaluation because she is losing weight unable to eat or drink lately. Patient states her primary medical care doctor sent her in and she states that Dr. Collins also suggested this to her. Undiagnosed new problem with uncertain prognosis? @ -No Drug Therapy requiring intensive monitoring for toxicity (Heparin, Nitro, Insulin, Cardizem)? @ -No Were any procedures done? @ -No Diagnosis/symptom? @ -Malnutrition Acute, or Chronic, or Acute on Chronic? @ -Acute on chronic Uncomplicated (without systemic symptoms) or Complicated (systemic symptoms)? @ -Complicated Side effects of treatment? @ -No Exacerbation, Progression, or Severe Exacerbation? @ -No Poses a threat to life or bodily function? How? (Chest pain, USA, CT, pneumonia, PE, COPD, DKA, ARF, appy, cholecystitis, CVA, Diverticulitis, Homicidal, S uicidal, threat to staff... and all critical care pts) @ -No Diagnosis/symptom? @ -PEG tube placement Acute, or Chronic, or Acute on Chronic? @ -Acute Uncomplicated (without systemic symptoms) or Complicated (systemic symptoms)? @ -Uncomplicated Side effects of treatment? @ -none Exacerbation, Progression, or Severe Exacerbation] @ -no Poses a threat to life or bodily function? @ -no - Lab Data Result diagrams: 12/28/22 19:00 12/28/22 19:00 Lab Results 12/28/22 12/28/22 Range/Units 19:00 19:00 WBC 5.0 (3.8-10.6) k/uL RBC 3.33 L (3.80-5.40) m/uL Hgb 9.7 L (11.4-16.0) gm/dL Hct 29.9 L (34.0-46.0) % MCV 89.7 (80.0-100.0) fL MCH 29.2 (25.0-35.0) pg MCHC 32.6 (31.0-37.0) g/dL RDW 15.2 (11.5-15.5) % Plt Count 179 (150-450) k/uL MPV 8.0 Neutrophils % 73 % Lymphocytes % 17 % Monocytes % 7 % Eosinophils % 1 % Basophils % 0 % Neutrophils # 3.7 (1.3-7.7) k/uL Lymphocytes # 0.9 L (1.0-4.8) k/uL Monocytes # 0.3 (0-1.0) k/uL Eosinophils # 0.0 (0-0.7) k/uL Basophils # 0.0 (0-0.2) k/uL Sodium 136 L (137-145) mmol/L Potassium 4.4 (3.5-5.1) mmol/L Chloride 104 (98-107) mmol/L Carbon Dioxide 29 (22-30) mmol/L Anion Gap 3 mmol/L BUN 35 H (7-17) mg/dL Creatinine 0.75 (0.52-1.04) mg/dL Est GFR (CKD-EPI)AfAm 83 (>60 ml/min/1.73 sqM) Est GFR (CKD-EPI)NonAf 72 (>60 ml/min/1.73 sqM) Glucose 106 H (74-99) mg/dL Calcium 8.7 (8.4-10.2) mg/dL Magnesium 2.2 (1.6-2.3) mg/dL Total Bilirubin 0.4 (0.2-1.3) mg/dL AST 37 H (14-36) U/L ALT 25 (4-34) U/L Alkaline Phosphatase 64 (38-126) U/L Total Protein 5.9 L (6.3-8.2) g/dL Albumin 3.2 L (3.5-5.0) g/dL Disposition Clinical Impression: Malnutrition, Encounter for feeding tube placement Disposition: ADMITTED IP TO THIS HOSP Referrals: Samantha Hodges DO [Primary Care Provider] - 1-2 days Time of Disposition: 20:48
[2022-12-28 19:06] LABS: Basophils % (A) 0 %; Eosinophils % (A) 1 %; HCT 29.9 % (34.0-46.0); HGB 9.7 gm/dL (11.4-16.0); Lymphocytes # (A) 0.9 k/uL (1.0-4.8); Lymphocytes % (A) 17 %; MCH 29.2 pg (25.0-35.0); MCHC 32.6 g/dL (31.0-37.0); MCV 89.7 fL (80.0-100.0); Monocytes # (A) 0.3 k/uL (0-1.0); Monocytes % (A) 7 %; Neutrophils # (A) 3.7 k/uL (1.3-7.7); Neutrophils % (A) 73 %; Platelet Count 179 k/uL (150-450); RBC 3.33 m/uL (3.80-5.40); RDW 15.2 % (11.5-15.5)
[2022-12-28 19:25] LABS: ALT 25 U/L (4-34); AST 37 U/L (14-36); African American GFR (CKD) 83 (>60 ml/min/1.73 sqM); Albumin 3.2 g/dL (3.5-5.0); Alkaline Phosphatase 64 U/L (38-126); Anion Gap 3 mmol/L; Blood Urea Nitrogen 35 mg/dL (7-17); Calcium 8.7 mg/dL (8.4-10.2); Carbon Dioxide 29 mmol/L (22-30); Chloride 104 mmol/L (98-107); Glucose 106 mg/dL (74-99); Magnesium 2.2 mg/dL (1.6-2.3); Non-African American GFR(CKD) 72 (>60 ml/min/1.73 sqM); Potassium 4.4 mmol/L (3.5-5.1); Sodium 136 mmol/L (137-145); Total Bilirubin 0.4 mg/dL (0.2-1.3); Total Protein 5.9 g/dL (6.3-8.2)
[2022-12-29 10:38] LABS: Appearance,Urine Clear (Clear); Bilirubin,Urine Negative (Negative); Blood,Urine Negative (Negative); Color,Urine Colorless; Glucose,Urine (UA) Negative (Negative); Ketones,Urine Negative (Negative); Leukocyte Esterase,Urine Negative (Negative); Nitrite,Urine Negative (Negative); PH, Urine 7.5 (5.0-8.0); Protein,Urine Negative (Negative); Specific Gravity,Urine 1.006 (1.001-1.035); Urobilinogen,Urine <2.0 mg/dL (<2.0)
[2022-12-29] MEDS: PANTOPRAZOLE 40 MG/10 ML VIAL IVP SCH (12:15)
[2022-12-29] MEDS: SODIUM CHLORIDE 0.9% 1,000 ML IV SCH (12:15)
[2022-12-29 12:26] VITALS: BMI 17.2
--- NOTE | 2022-12-29 12:40 | HP ---
HISTORY AND PHYSICAL CHIEF COMPLAINT: Significant weight loss and dysphagia. HISTORY OF PRESENT ILLNESS: An 87-year-old woman with a past medical history of multiple medical problems including GERD, hypertension, hyperlipidemia, and rheumatoid arthritis, being evaluated at [facility] for possible esophageal stricture. The patient was losing weight incessantly and now is only weighing like 80 pounds. So, the patient admitted for further evaluation and possible PEG tube placement also. Surgery was apparently recommended for esophageal stricture previously. The detailed records are not available. There is no history of any fever, rigors, or chills. PAST MEDICAL HISTORY: Reviewed and includes hypertension, hyperlipidemia, DJD, rheumatoid arthritis. Rest of the history and rest of the chart are also reviewed. HOME MEDICATIONS: Reviewed and include dose and rest of medication reviewed. ALLERGIES: Unknown. FAMILY HISTORY: No history of heart disease or strokes in the family. SOCIAL HISTORY: Previous smoker. REVIEW OF SYSTEMS: Fourteen-point review of systems is negative except as mentioned earlier. PHYSICAL EXAMINATION: VITAL SIGNS: Pulse 55, blood pressure n , respirations 18. HEENT: Conjunctivae normal. NECK: No jugular venous distention. CARDIOVASCULAR: S1, S2 muffled. LUNGS: Diminished breath sounds at the bases. ABDOMEN: Scaphoid, nontender. No mass palpable. LEGS: No edema. NERVOUS SYSTEM: Diffusely weak and emaciated. SKIN: No ulcer, rash, or bleeding. JOINTS: No active deforming arthropathy. LABORATORY DATA: Reviewed. ASSESSMENT: 1. Severe weakness and severe protein-calorie malnutrition. 2. Dysphagia, possibly esophageal stricture. 3. Hypertension. 4. Hyperlipidemia. 5. Gastroesophageal reflux disease. 6. History of rheumatoid arthritis. 7. Multiple complex medical issues. RECOMMENDATIONS: This 87-year-old woman presented with multiple complex medical issues. We will monitor the patient closely. Recommend IV fluids, surgical consultation for PEG tube placement. We will resume the home medications once the PEG tube is placed. Otherwise, I would also recommend hydralazine p.r.n. for blood pressure elevations. We will try to obtain the old charts. DVT prophylaxis. The prognosis guarded because of multiple complex medical issues and further recommendations to follow. See orders for details. MMODL / IJN: [id number] / MTDQiana
--- NOTE | 2022-12-29 16:06 | P.GSCN ---
History of Present Illness Consult date: 12/29/22 History of present illness: She has 1 year history of troubles with swallowing. She had recent assessment at [facility] for possible surgery on the esophagus. All history is obtained from her. She reports trouble with swallowing liquids. She has accelerated weight loss of 10 pounds in 2 weeks. SHe has moderate rheumatoid arthritis of the hands. Recommend esophagram, abdominal xray for assessment of feeding tube via EGD. Past Medical History Past Medical History: GERD/Reflux, Hyperlipidemia, Hypertension, Osteoarthritis (OA), Rheumatoid Arthritis (RA), Thyroid Disorder Additional Past Medical History / Comment(s): diverticulitis,chronic neck pain, hx ulcerative esophagus, anemia, WOUND TO BOTTOM OF LT FOOT-, CHRONIC HIP PAIN History of Any Multi-Drug Resistant Organisms: None Reported Past Surgical History: Adenoidectomy, Joint Replacement, Tonsillectomy Additional Past Surgical History / Comment(s): BILATERAL KNEES REPLACEMENTS,EXPLORATORY LAPAROTOMY, EGD & colonoscopy, DRAINED 150 CC FLUID FROM RT KNEE AT [facility] YEARS AGO , BILAT CATARACTS Past Anesthesia/Blood Transfusion Reactions: No Reported Reaction Past Psychological History: Anxiety, Depression Smoking Status: Former smoker Past Alcohol Use History: None Reported Additional Past Alcohol Use History / Comment(s): QUIT SMOKING APPROX 1989, SMOKED FOR APPROX 20 YRS Past Drug Use History: None Reported - Past Family History Mother Family Medical History: No Reported History Medications and Allergies Home Medications Medication Instructions Recorded Confirmed Type Esomeprazole Magnesium [NexIUM] 40 mg PO DAILY 08/31/13 12/28/22 History Levothyroxine Sodium [Synthroid] 50 mcg PO DAILY 08/31/13 12/28/22 History atenoloL [Atenolol] 25 mg PO DAILY 01/11/14 12/28/22 History DULoxetine HCL [Cymbalta] 60 mg PO DAILY 04/05/14 12/28/22 History polyethylene glycoL 3350 [Miralax] 17 gm PO DAILY 03/09/15 12/28/22 History Tofacitinib Citrate [Xeljanz] 5 mg PO BID 07/16/18 12/28/22 History predniSONE 5 mg PO DAILY 07/16/18 12/28/22 History Carboxymethylcellulose Sodium 1 drop BOTH EYES QID PRN 12/28/22 12/28/22 History [Refresh Tears] Fluticasone Nasal [place] [Flonase 1 spray EA NOSTRIL DAILY 12/28/22 12/28/22 History Nasal [place]] HYDROcodone/APAP 10-325MG [Tofte 1 tab PO Q6H PRN 12/28/22 12/28/22 History 10-325] Multivit-Min/Iron/Folic/Lutein 1 tab PO DAILY 12/28/22 12/28/22 History [Centrum Silver Women Tablet] Rosuvastatin [Crestor] 20 mg PO DAILY 12/28/22 12/28/22 History Sucralfate [Carafate] 1 gm PO AC-BID 12/28/22 12/28/22 History lisinopriL [Zestril] 10 mg PO DAILY 12/28/22 12/28/22 History Allergies Allergy/AdvReac Type Severity Reaction Status Date / Time No Known Allergies Allergy Verified 12/28/22 21:29 Surgical - Exam Vital Signs Temp Pulse Resp BP Pulse Ox 98.0 F 63 18 144/65 99 12/28/22 17:35 12/28/22 17:35 12/28/22 17:35 12/28/22 17:35 12/28/22 17:35 Results - Labs 12/28/22 19:00 12/28/22 19:00 Abnormal Lab Results - Last 24 Hours (Table) 12/28/22 12/28/22 Range/Units 19:00 19:00 RBC 3.33 L (3.80-5.40) m/uL Hgb 9.7 L (11.4-16.0) gm/dL Hct 29.9 L (34.0-46.0) % Lymphocytes # 0.9 L (1.0-4.8) k/uL Sodium 136 L (137-145) mmol/L BUN 35 H (7-17) mg/dL Glucose 106 H (74-99) mg/dL AST 37 H (14-36) U/L Total Protein 5.9 L (6.3-8.2) g/dL Albumin 3.2 L (3.5-5.0) g/dL Diabetes panel 12/28/22 Range/Units 19:00 Sodium 136 L (137-145) mmol/L Potassium 4.4 (3.5-5.1) mmol/L Chloride 104 (98-107) mmol/L Carbon Dioxide 29 (22-30) mmol/L BUN 35 H (7-17) mg/dL Creatinine 0.75 (0.52-1.04) mg/dL Glucose 106 H (74-99) mg/dL Calcium 8.7 (8.4-10.2) mg/dL AST 37 H (14-36) U/L ALT 25 (4-34) U/L Alkaline Phosphatase 64 (38-126) U/L Total Protein 5.9 L (6.3-8.2) g/dL Albumin 3.2 L (3.5-5.0) g/dL Calcium panel 12/28/22 Range/Units 19:00 Calcium 8.7 (8.4-10.2) mg/dL Albumin 3.2 L (3.5-5.0) g/dL Pituitary panel 12/28/22 Range/Units 19:00 Sodium 136 L (137-145) mmol/L Potassium 4.4 (3.5-5.1) mmol/L Chloride 104 (98-107) mmol/L Carbon Dioxide 29 (22-30) mmol/L BUN 35 H (7-17) mg/dL Creatinine 0.75 (0.52-1.04) mg/dL Glucose 106 H (74-99) mg/dL Calcium 8.7 (8.4-10.2) mg/dL Adrenal panel 12/28/22 Range/Units 19:00 Sodium 136 L (137-145) mmol/L Potassium 4.4 (3.5-5.1) mmol/L Chloride 104 (98-107) mmol/L Carbon Dioxide 29 (22-30) mmol/L BUN 35 H (7-17) mg/dL Creatinine 0.75 (0.52-1.04) mg/dL Glucose 106 H (74-99) mg/dL Calcium 8.7 (8.4-10.2) mg/dL Total Bilirubin 0.4 (0.2-1.3) mg/dL AST 37 H (14-36) U/L ALT 25 (4-34) U/L Alkaline Phosphatase 64 (38-126) U/L Total Protein 5.9 L (6.3-8.2) g/dL Albumin 3.2 L (3.5-5.0) g/dL
[2022-12-29] MEDS ORDERED: IOPAMIDOL CONTRAST (ORAL USE) VIAL PO PRN (16:11)
[2022-12-29] MEDS: hydrALAZINE HCL 20 MG/ML 1 ML VIAL IVP PRN (19:57)
[2022-12-29] MEDS: HEPARIN SODIUM,PORCINE 5,000 UNIT/ML 1 ML VIAL SQ SCH (19:57)
--- NOTE | 2022-12-29 22:26 | CT ---
EXAMINATION TYPE: CT chest abdomen w con DATE OF EXAM: 12/29/2022 COMPARISON: 01/18/2014 HISTORY: pain CT DLP: 538.2 mGycm, Automated exposure control for dose reduction was used. CONTRAST: Performed injected with 80 mL of Isovue 300. TECHNIQUE: Axial images were obtained at 5 mm thick sections. Reconstructed images are reviewed on Portapure computer in the coronal plane. FINDINGS: Portion of the thyroid visualized is normal. No suspicious lung nodules or focal infiltrates are present. Some mild emphysematous changes are pres ent. There is gastric pull-through and colonic interposition present. No enlarged mediastinal or hilar adenopathy is evident. The ascending aorta diameter at the level o f the main pulmonary artery is 3.3 cm. The main pulmonary artery diameter at the bifurcation is 2.[address] abdomen: Liver: Normal Spleen: Normal Pancreas: Normal Adrenal glands: The adrenal glands are normal. Gallbladder: Normal Kidneys: No masses are evident. No hydronephrosis is present. Left renal cyst is present on the lat eral portion of the kidney measuring 3.1 cm. Delayed images were obtained through the kidneys, which remain unremarkable. Aorta: Vascular calcification is within the aorta. Inferior vena cava: Normal. Loops of bowel within the abdomen and upper pelvis are normal. There are loops of bowel which are incompletely distended or lack oral contrast limiting their evaluation. IMPRESSION: 1. 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 No suspicious changes to suggest recurre nt or metastatic esophageal cancer evident.
[2022-12-30] MEDS: SODIUM CHLORIDE 0.9% 1,000 ML IV SCH ×2 (01:07→14:07)
[2022-12-30] MEDS: hydrALAZINE HCL 20 MG/ML 1 ML VIAL IVP PRN ×2 (05:29→10:42)
[2022-12-30] MEDS: predniSONE 5 MG TAB PO SCH (08:22)
[2022-12-30] MEDS: atenoloL 25 MG TAB PO SCH (08:22)
[2022-12-30] MEDS: PANTOPRAZOLE 40 MG/10 ML VIAL IVP SCH (08:22)
[2022-12-30] MEDS: FLUTICASONE 50MCG/SPRAY NASAL 16GM EA NOSTRIL SCH (08:23)
[2022-12-30] MEDS: HEPARIN SODIUM,PORCINE 5,000 UNIT/ML 1 ML VIAL SQ SCH ×2 (08:23→20:14)
[2022-12-30 09:24] LABS: Basophils # (A) 0.02 X 10*3/uL (0.00-0.10); Basophils % (A) 0.4 %; Eosinophils # (A) 0.13 X 10*3/uL (0.04-0.35); Eosinophils % (A) 2.8 %; HGB 10.2 d/dL (12.0-15.0); Lymphocytes # (A) 0.98 X 10*3/uL (0.90-5.00); Lymphocytes % (A) 21.4 %; MCH 28.9 pg (27.0-32.0); MCHC 31.9 d/dL (32.0-37.0); MCV 90.7 FL (80.0-97.0); Mean Platelet Volume 10.7 FL (9.5-12.2); Monocytes # (A) 0.44 X 10*3/uL (0.20-1.00); Monocytes % (A) 9.6 %; NRBC Per 100 WBC 0 X 10*3/uL (0.00-0.01); Neutrophils # (A) 2.95 X 10*3/uL (1.80-7.70); Neutrophils % (A) 64.5 %; Platelet Count 193 X 10*3/uL (140-440); RBC 3.53 X 10*6/uL (4.10-5.20); RDW 15.1 % (11.5-14.5); WBC 4.58 X 10*3/uL (4.50-10.00)
[2022-12-30 09:35] LABS: BUN/Creat Ratio 13.29 Ratio (12.00-20.00); Blood Urea Nitrogen 9.3 mg/dL (9.0-27.0); Calcium 8.8 mg/dL (8.7-10.3); Carbon Dioxide 21.2 mmol/L (21.6-31.8); Chloride 112 mmol/L (96-109); Glucose 94 mg/dL (70-110); Sodium 144 mmol/L (135-145)
--- NOTE | 2022-12-30 13:00 | P.PN ---
Subjective Progress Note Date: 12/30/22 Patient on clear liquid diet. Denies abdominal pain. She gives additional history that her only surgery was an appendectomy not a laparotomy. She denies prior esophageal resection with reconstruction/gastric pull through. CT of the chest/abdomen independently reviewed demonstrating 100% of stomach in the chest. CT abdomen/pelvis reviewed from 2019 reviewed had demonstrated 50%+ incarcerated stomach PLAN: 1. Images reviewed where she is NOT a candidate for a PEG tube due to complete 100% paraesophageal intra-thoracic hiatal hernia 2. Recommend upper endoscopy with possible dilation under anesthesia due to high risk of aspiration 3. May benefit from thoracic surgery consultation due to thoracic stomach Objective - Vital Signs Vital signs: Vital Signs Temp 98.1 F 12/30/22 08:00 Pulse 76 12/30/22 08:00 Resp 18 12/30/22 08:00 BP 188/74 12/30/22 08:00 Pulse Ox 95 12/30/22 08:00 FiO2 Intake & Output 12/29/22 12/30/22 12/30/22 18:59 06:59 18:59 Output Total 150 1400 Balance -150 -1400 Weight 38.555 kg Output: Urine 150 1400 Other: Voiding Method External Catheter External Catheter External Catheter # Voids 10 - Labs CBC & Chem 7: 12/30/22 06:02 12/30/22 06:02 Labs: Abnormal Lab Results - Last 24 Hours (Table) 12/30/22 12/30/22 Range/Units 06:02 06:02 RBC 3.53 L (4.10-5.20) X 10*6/uL Hgb 10.2 L (12.0-15.0) d/dL Hct 32.0 L (37.2-46.3) % MCHC 31.9 L (32.0-37.0) d/dL RDW 15.1 H (11.5-14.5) % Chloride 112 H (96-109) mmol/L Carbon Dioxide 21.2 L (21.6-31.8) mmol/L
[2022-12-30] MEDS: HYDROmorphone 0.5 MG/0.5 ML SYRINGE IVP PRN (20:14)
[2022-12-30] MEDS: TEMAZEPAM 15 MG CAP PO PRN (22:01)
--- NOTE | 2022-12-31 02:34 | PN ---
PROGRESS NOTE DATE OF SERVICE: 12/30/2022 SUBJECTIVE: This is an 87-year-old woman, who was admitted with severe weakness and severe protein calorie malnutrition, slated to have PEG tube placement and CT scan of the abdomen and pelvis showed prior colonic interposition. No chest pain. No palpitation. OBJECTIVE: VITAL SIGNS: Pulse is 76, blood pressure 188/70, respirations 18. CHEST: Clear to auscultation. CARDIOVASCULAR: S1, S2. ABDOMEN: Soft. NERVOUS SYSTEM: Nonfocal. LABORATORY DATA: Reviewed. ASSESSMENT: 1. Severe weakness and severe protein-calorie malnutrition. 2. Dysphagia, possible esophageal stricture. 3. Hypertension. 4. Hyperlipidemia. 5. Gastroesophageal reflux disease. 6. Multiple medical issues. RECOMMENDATIONS: Recommend to continue current medical management and continue symptomatic treatment. Otherwise, hydralazine p.r.n. Other than that, repeat labs and possible PEG tube placement with Surgery. Further recommendations to follow. MMODL / IJN: [id number] /
[2022-12-31] MEDS: SODIUM CHLORIDE 0.9% 1,000 ML IV SCH ×2 (04:06→18:14)
[2022-12-31] MEDS: PANTOPRAZOLE 40 MG/10 ML VIAL IVP SCH (08:12)
[2022-12-31] MEDS: predniSONE 5 MG TAB PO SCH (08:12)
[2022-12-31] MEDS: FLUTICASONE 50MCG/SPRAY NASAL 16GM EA NOSTRIL SCH (08:12)
[2022-12-31] MEDS: atenoloL 25 MG TAB PO SCH (08:12)
[2022-12-31] MEDS: HEPARIN SODIUM,PORCINE 5,000 UNIT/ML 1 ML VIAL SQ SCH ×2 (08:13→21:58)
[2022-12-31 11:24] LABS: Basophils # (A) 0.05 X 10*3/uL (0.00-0.10); Basophils % (A) 0.8 %; Crenated RBC 2+; Eosinophils # (A) 0.15 X 10*3/uL (0.04-0.35); Eosinophils % (A) 2.4 %; HGB 10.5 d/dL (12.0-15.0); Lymphocytes # (A) 1.16 X 10*3/uL (0.90-5.00); Lymphocytes % (A) 18.5 %; MCV 96.7 FL (80.0-97.0); Mean Platelet Volume 11.4 FL (9.5-12.2); Monocytes # (A) 0.65 X 10*3/uL (0.20-1.00); Monocytes % (A) 10.4 %; NRBC Per 100 WBC 0 X 10*3/uL (0.00-0.01); Neutrophils # (A) 4.16 X 10*3/uL (1.80-7.70); Neutrophils % (A) 66.3 %; Platelet Count 173 X 10*3/uL (140-440); RBC 3.62 X 10*6/uL (4.10-5.20); RDW 15.6 % (11.5-14.5); WBC 6.27 X 10*3/uL (4.50-10.00)
[2022-12-31] MEDS ORDERED: LIDOCAINE 2% INJ 20 MG/ML (2 ML VIAL) ONE (11:48)
[2022-12-31] MEDS ORDERED: SUCCINYLCHOLINE CHLORIDE 200 MG/10 ML VIAL IV ONE (11:48)
[2022-12-31] MEDS ORDERED: PROPOFOL 10 MG/ML 20 ML VIAL IV ONE (11:48)
[2022-12-31] MEDS ORDERED: HYDROCORTISONE SUCCINATE 100 MG/2 ML VIAL ONE (11:48)
[2022-12-31] MEDS ORDERED: IV FLUID CONTINUATION 1,000 ML IV ONE ×2 (11:56)
--- NOTE | 2022-12-31 12:26 | P.PCN ---
Date of Procedure: 12/31/22 Description of Procedure: PREOPERATIVE DIAGNOSIS: Esophageal stricture Unintentional weight loss Underweight, BMI 17.2 Paraesophageal diaphragmatic hiatal hernia Dysphagia POSTOPERATIVE DIAGNOSIS: Mid to distal esophageal stricture Intrathoracic paraesophageal diaphragmatic hiatal hernia Gastroesophageal reflux disease with erosive esophagitis Gastritis, chronic Duodenitis Esophageal dysmotility OPERATION: Esophagogastroduodenoscopy with rigid dilator over the guidewire 57 Fr with dilation Esophagogastroduodenoscopy with cold forceps biopsies stomach/antrum and esophagus SURGEON: Jeanette Walker MD ANESTHESIA: MAC. INDICATIONS: The patient is 87-year-old male who presents with esophageal stricture and dysphagia. Benefits and risks of the procedure were described. Informed consent was obtained. DESCRIPTION: The patient was brought into the endoscopy suite and laid in the left lateral decubitus position. After a timeout was confirmed, the procedure was initiated. An Olympus gastroscope was passed into the posterior oropharynx where lower esophageal stenosis was identified. The scope was passed down to the distal esophagus. To address the lower esophageal stenosis, rigid dilator over guidewire was selected. Next using an [place] rigid dilator, a guidewire was placed through the gastroscope. Next the scope was withdrawn. A 48-Ecuadorean rigid [place] dilator was passed carefully along the posterior oropharynx to 45 cm and left in place for 2-3 minutes stretch. The dilator was withdrawn including the guidewire. The scope was reentered along the posterior oropharynx with no findings of full- thickness tear of the upper esophageal sphincter. Additional findings below. Within the stomach, severe gastritis were identified along the body of the stomach with cold forceps biopsies obtained. Biopsies were obtained of the duodenum for duodenitis. LA grade D erosive esophagitis was identified. No full-thickness injury was encountered. The GI tract was desufflated. The patient tolerated the procedure well. FINDINGS: Upper esophageal stenosis dilated 48-Ecuadorean rigid dilator Diaphragmatic hiatus at 38 cm from the incisors Squamocolumnar junction 34 cm from the incisors. Gastritis along the gastric body and fundus cold forceps biopsies obtained Erosive esophagitis with biopsies obtained Duodenum with mild duodenitis with biopsies obtained LA grade D erosive esophagitis Hill grade 4 lower esophageal valve. RECOMMENDATIONS: Recommend barium swallow Recommend surgical repair of paraesophageal hiatal hernia Recommend pulmonary and cardiac risk assessment
[2022-12-31 15:49] LABS: African American GFR (CKD) >90 (>60 ml/min/1.73 sqM); Anion Gap 5 mmol/L; Blood Urea Nitrogen 9 mg/dL (7-17); Calcium 8.5 mg/dL (8.4-10.2); Carbon Dioxide 23 mmol/L (22-30); Chloride 113 mmol/L (98-107); Glucose 107 mg/dL (74-99); Non-African American GFR(CKD) 79 (>60 ml/min/1.73 sqM); Potassium 3.9 mmol/L (3.5-5.1); Sodium 141 mmol/L (137-145)
--- NOTE | 2022-12-31 16:18 | P.PN ---
Subjective Progress Note Date: 12/31/22 This is a pleasant 87-year-old female who was recently admitted with severe weakness and severe protein calorie malnutrition was scheduled to have PEG tube placed today but patient is not a candidate as there is complete 100%. Esophageal intrathoracic hiatal hernia and to high risk for surgical interve ntion. Patient is plan for EGD today which is pending.. General surgery Dr. Walker following and patient is currently nothing by mouth. Patient reports attempting pills and oral intake although unable to tolerate. Patient has been spitting them back up. Patient is afebrile denies chest pain or shortness of breath. Patient be evaluated by physical therapy. A.m. labs pending. Will follow up. Await surgical report. Review of systems: Constitutional: No reports of fatigue, fever, or chills Cardiovascular: No reports of chest pain or palpitations Respiratory: No reports of shortness of breath or cough GI: reports of nausea, no reports of vomiting, reports not tolerating any oral intake : No reports of dysuria or retention Neurovascular: reports of generalized weakness All medications have been reviewed PHYSICAL EXAMINATION: GENERAL: The patient is alert and oriented x4, Well developed, thin built, elderly appearing. HEENT: Pupils are round and equally reacting to light. EOMI. no scleral icterus. No conjunctival pallor. Normocephalic, atraumatic. No pharyngeal erythema. No thyromegaly. CARDIOVASCULAR: S1 and S2 muffled PULMONARY: diminished breath sounds bilaterally with no wheezing or rhonchi noted. ABDOMEN: soft. Nontender on exam. non-distended, normoactive bowel sounds. No palpable organomegaly. MUSCULOSKELETAL: No joint swelling or deformity. EXTREMITIES: No cyanosis, clubbing, or pedal edema. NEUROLOGICAL: Gross neurological examination did not reveal any focal deficits. Diffuse weakness SKIN: No rashes. Assessment: Severe weakness and severe protein calorie malnutrition with a BMI of 17.2 Dysphasia, esophageal stricture Hypertension history Hyperlipidemia history GERD History of osteoarthritis and rheumatoid arthritis History of anxiety/depression Former smoker GI prophylaxis DVT prophylaxis No code Plan: Patient was nothing by mouth and not tolerating much oral intake anyway as it all is coming right back up Gen. surgery following with plans for EGD with possible dilatation today, will await surgical report Labs reviewed this morning within normal limits Recommend PT/OT therapy evaluation with case management as patient has significant weakness, possible need for ECF Due to multiple convex medical issues, prognosis is guarded The impression and plan of care has been dictated by Brea Barclay, nurse carmen joshi as directed. Dr. Parish MD I have performed a history and examination and MDM of this patient, discussed the same with the dictator, and agree with the dictator's assessment and plan a s written ,documented as a scribe. Based on total visit time, I have performed more than 50% of the visit. Any additional findings or plans will be noted. Objective - Vital Signs Vital signs: Vital Signs Temp 97.5 F L 12/31/22 14:00 Pulse 62 12/31/22 14:00 Resp 17 12/31/22 14:00 BP 138/64 12/31/22 14:00 Pulse Ox 94 L 12/31/22 14:00 FiO2 Intake & Output 12/30/22 12/31/22 12/31/22 18:59 06:59 18:59 Intake Total 500 Output Total 1225 600 Balance -1225 -600 500 Weight 38.555 kg Intake: IV 500 Output: Urine 1225 600 Other: Voiding Method External Catheter External Catheter External Catheter - Labs CBC & Chem 7: 12/31/22 06:26 12/31/22 14:55 Labs: Abnormal Lab Results - Last 24 Hours (Table) 12/31/22 12/31/22 Range/Units 06:26 14:55 RBC 3.62 L (4.10-5.20) X 10*6/uL Hgb 10.5 L (12.0-15.0) d/dL Hct 35.0 L (37.2-46.3) % MCHC 30.0 L (32.0-37.0) d/dL RDW 15.6 H (11.5-14.5) % Crenated Cell 2+ A Chloride 113 H (98-107) mmol/L Glucose 107 H (74-99) mg/dL
[2022-12-31] MEDS ORDERED: LORazepam 2 MG/ML INJ IV PRN (20:36)
[2023-01-01] MEDS: SODIUM CHLORIDE 0.9% 1,000 ML IV SCH ×2 (07:33→20:43)
[2023-01-01] MEDS: predniSONE 5 MG TAB PO SCH (09:11)
[2023-01-01] MEDS: FLUTICASONE 50MCG/SPRAY NASAL 16GM EA NOSTRIL SCH (09:11)
[2023-01-01] MEDS: atenoloL 25 MG TAB PO SCH (09:11)
[2023-01-01] MEDS: HEPARIN SODIUM,PORCINE 5,000 UNIT/ML 1 ML VIAL SQ SCH ×3 (09:11→20:43)
--- NOTE | 2023-01-01 11:00 | P.PN ---
Subjective Progress Note Date: 01/01/23 CHIEF COMPLAINT: Dysphagia and weight loss HISTORY OF PRESENT ILLNESS: Patient is postop day #1 status post EGD with dilation of esophageal stricture. EGD did also reveal intrathoracic paraesophageal diaphragmatic hiatal hernia, erosive esophagitis, chronic gastritis, duodenitis. Patient started on a pured diet. She reports less emesis in which she's been dealing with. She is scheduled for modified barium swallow study today. Afebrile. PHYSICAL EXAM: VITAL SIGNS: Reviewed GENERAL: Well-developed in no acute distress. HEENT: No sclera icterus. Extraocular movements grossly intact. Moist buccal mucosa. Head is atraumatic, normocephalic. Hears conversational speech. No nasal drainage. NECK: Supple without lymphadenopathy. CHEST: Non-labored respirations and equal bilateral excursions. CARDIOVASCULAR: Palpable 2+ radial pulses. ABDOMEN: Soft. Nondistended. Nontender. MUSCULOSKELETAL: No clubbing or cyanosis. NEUROLOGIC: No focal or lateralizing signs. Cranial nerves II through XII grossly intact. PSYCH: Appropriate affect. Alert and oriented to person, place and time. SKIN: Well perfused. Good skin turgor. ASSESSMENT: Mid to distal esophageal stricture Intrathoracic paraesophageal diaphragmatic hiatal hernia Gastroesophageal reflux disease with erosive esophagitis Gastritis, chronic Duodenitis Esophageal dysmotility PLAN: -Patient scheduled for paraesophageal hiatal hernia repair on , 01/03/[address] Walker -Continue pured diet -Consult pulmonary service and cardiology service for surgical clearance -Patient scheduled for modified barium swallow study today Physician [employer] note has been reviewed by physician. Signing provider agrees with the documented findings, assessment, and plan of care. Objective - Vital Signs Vital signs: Vital Signs Temp 98.6 F 01/01/23 07:18 Pulse 65 01/01/23 07:18 Resp 17 01/01/23 07:18 BP 163/56 01/01/23 07:18 Pulse Ox 98 01/01/23 07:18 FiO2 Intake & Output 12/31/22 01/01/23 01/01/23 18:59 06:59 18:59 Intake Total 500 900 Output Total 800 200 300 Balance -300 -200 600 Weight 38.555 kg Intake: IV 500 Intake, IV Titration 900 Amount Sodium Chloride 0.9% 1, 900 000 ml @ 75 mls/hr IV . [id number] [facility] Rx#:[id number] Output: Urine 800 200 300 Stool 0 Other: Voiding Method External Catheter External Catheter External Catheter # Bowel Movements 1 - Labs CBC & Chem 7: 12/31/22 06:26 12/31/22 14:55 Labs: Abnormal Lab Results - Last 24 Hours (Table) 12/31/22 12/31/22 Range/Units 06:26 14:55 RBC 3.62 L (4.10-5.20) X 10*6/uL Hgb 10.5 L (12.0-15.0) d/dL Hct 35.0 L (37.2-46.3) % MCHC 30.0 L (32.0-37.0) d/dL RDW 15.6 H (11.5-14.5) % Crenated Cell 2+ A Chloride 113 H (98-107) mmol/L Glucose 107 H (74-99) mg/dL
[2023-01-01] MEDS: PANTOPRAZOLE 40 MG/10 ML VIAL IVP SCH (11:02)
--- NOTE | 2023-01-01 11:58 | P.CNPUL ---
History of Present Illness Consult date: 01/01/23 Chief complaint: Hiatal hernia History of present illness: This is an 87-year-old female patient was being considered for surgical repair of paraesophageal hiatal hernia. The patient has been having weight loss and further investigation for weight loss and dysphagia yielded that the patient had mid to distal esophageal stricture and the patient underwent a balloon dilatation. She also has intrathoracic paraesophageal hiatal hernia along with acid reflux and erosive esophagitis and chronic duodenitis and gastritis. I was asked to evaluate the pulmonary status. The patient is currently on room air oxygen. No difficulties with aspiration or any pneumonias. The patient has quit smoking more than 30 years ago. The patient is doing well. She has history of rheumatoid arthritis and the patient is currently on a combination of xeljanz/ prednisone. She has chronic deformities in her hands related to rheumatoid arthritis. No history of any interstitial lung disease related to rheumatoid arthritis. CAT scan of the chest and abdomen was done and the patient has no acute pulmonary abnormalities. No recent lymphadenopathy. No ev idence of interstitial lung disease. Mild emphysematous changes. The patient has some limitation in her functionality. She walks around without help of a walker. She is unable to climb a flight of stairs. She is able to perform activities of day-to-day life and she was living independently at home. She has hypertension, hyperlipidemia, rheumatoid arthritis, and degenerative arthritis. Review of Systems Constitutional: Reports poor appetite, Reports weight loss Eyes: denies as per HPI, denies blurred vision, denies bulging eye, denies decreased vision, denies diplopia, denies discharge, denies dry eye, denies irritation, denies itching, denies pain, denies photophobia, denies loss of peripheral vision, denies loss of vision, denies tunnel vision/blind spots Ears: deny: decreased hearing, ear discharge, earache, tinnitus Ears, nose, mouth and throat: Reports as per HPI Breasts: absent: as per HPI, change in shape, gynecomastia, masses, nipple discharge, pain, skin changes, swelling Respiratory: Reports as per HPI Gastrointestinal: Reports heartburn, Reports loss of appetite Genitourinary: Reports as per HPI Menstruation: Reports as per HPI Musculoskeletal: Reports gait dysfunction, Reports limitation of motion Musculoskeletal: absent: ankle pain Integumentary: Reports as per HPI Neurological: Reports as per HPI, Reports gait dysfunction Psychiatric: Reports as per HPI Endocrine: Reports as per HPI Hematologic/Lymphatic: Reports as per HPI Allergic/Immunologic: Reports as per HPI Past Medical History Past Medical History: GERD/Reflux, Hyperlipidemia, Hypertension, Osteoarthritis (OA), Rheumatoid Arthritis (RA), Thyroid Disorder Additional Past Medical History / Comment(s): diverticulitis,chronic neck pain, hx ulcerative esophagus, anemia, WOUND TO BOTTOM OF LT FOOT-, CHRONIC HIP PAIN History of Any Multi-Drug Resistant Organisms: None Reported Past Surgical History: Adenoidectomy, Joint Replacement, Tonsillectomy Additional Past Surgical History / Comment(s): BILATERAL KNEES REPLACE MENTS,EXPLORATORY LAPAROTOMY, EGD & colonoscopy, DRAINED 150 CC FLUID FROM RT KNEE AT [facility] YEARS AGO , BILAT CATARACTS Past Anesthesia/Blood Transfusion Reactions: No Reported Reaction Past Psychological History: Anxiety, Depression Smoking Status: Former smoker Past Alcohol Use History: None Reported Additional Past Alcohol Use History / Comment(s): QUIT SMOKING APPROX 1989, SMOKED FOR APPROX 20 YRS Past Drug Use History: None Reported - Past Family History Mother Family Medical History: No Reported History Medications and Allergies Home Medications Medication Instructions Recorded Confirmed Type Esomeprazole Magnesium [NexIUM] 40 mg PO DAILY 08/31/13 12/28/22 History Levothyroxine Sodium [Synthroid] 50 mcg PO DAILY 08/31/13 12/28/22 History atenoloL [Atenolol] 25 mg PO DAILY 01/11/14 12/28/22 History DULoxetine HCL [Cymbalta] 60 mg PO DAILY 04/05/14 12/28/22 History polyethylene glycoL 3350 [Miralax] 17 gm PO DAILY 03/09/15 12/28/22 History Tofacitinib Citrate [Xeljanz] 5 mg PO BID 07/16/18 12/28/22 History predniSONE 5 mg PO DAILY 07/16/18 12/28/22 History Carboxymethylcellulose Sodium 1 drop BOTH EYES QID PRN 12/28/22 12/28/22 History [Refresh Tears] Fluticasone Nasal [place] [Flonase 1 spray EA NOSTRIL DAILY 12/28/22 12/28/22 History Nasal [place]] HYDROcodone/APAP 10-325MG [[place] 1 tab PO Q6H PRN 12/28/22 12/28/22 History 10-325] Multivit-Min/Iron/Folic/Lutein 1 tab PO DAILY 12/28/22 12/28/22 History [Centrum Silver Women Tablet] Rosuvastatin [Crestor] 20 mg PO DAILY 12/28/22 12/28/22 History Sucralfate [Carafate] 1 gm PO AC-BID 12/28/22 12/28/22 History lisinopriL [Zestril] 10 mg PO DAILY 12/28/22 12/28/22 History Allergies Allergy/AdvReac Type Severity Reaction Status Date / Time No Known Allergies Allergy Verified 12/28/22 21:29 Physical Exam Vitals: Vital Signs Temp Pulse Resp BP Pulse Ox 01/01/23 07:18 98.6 F 65 17 163/56 98 01/01/23 02:00 98.6 F 67 135/66 97 12/31/22 19:54 98.2 F 85 16 107/57 97 12/31/22 14:00 97.5 F L 62 17 138/64 94 L 12/31/22 13:01 61 16 179/80 97 12/31/22 12:46 60 16 173/79 98 12/31/22 12:31 98.4 F 61 16 178/77 100 Intake and Output 12/31/22 01/01/23 01/01/23 22:59 06:59 14:59 Intake Total 900 Output Total 800 200 300 Balance -800 -200 600 Intake: Intake, IV Titration 900 Amount Sodium Chloride 0.9% 1, 900 000 ml @ 75 mls/hr IV . [id number] [facility] Rx#:[id number] Output: Urine 800 200 300 Stool 0 Other: Voiding Method External Catheter External Catheter # Bowel Movements 1 GENERAL: Well-developed in no acute distress. The patient has been on room air oxygen. No signs of any respiratory distress at this point in time. HEENT: No sclera icterus. Extraocular movements grossly intact. Moist buccal mucosa. Head is atraumatic, normocephalic. Hears conversational speech. No nasal drainage. NECK: Supple without lymphadenopathy. CHEST: Non-labored respirations and equal bilateral excursions. Thoracic kyphosis present. CARDIOVASCULAR: Palpable 2+ radial pulses. ABDOMEN: Soft. Nondistended. Nontender. MUSCULOSKELETAL: No clubbing or cyanosis. NEUROLOGIC: No focal or lateralizing signs. Cranial nerves II through XII grossly intact. PSYCH: Appropriate affect. Alert and oriented to person, place and time. SKIN: Well perfused. Good skin turgor. Results - Laboratory Findings CBC and BMP: 12/31/22 06:26 12/31/22 14:55 Abnormal lab findings: Abnormal Labs 12/28/22 12/28/22 12/30/22 19:00 19:00 06:02 RBC 3.33 L 3.53 L Hgb 9.7 L 10.2 L Hct 29.9 L 32.0 L MCHC 31.9 L RDW 15.1 H Lymphocytes # 0.9 L Crenated Cell Sodium 136 L Chloride Carbon Dioxide BUN 35 H Glucose 106 H AST 37 H Total Protein 5.9 L Albumin 3.2 L 12/30/22 12/31/22 12/31/22 06:02 06:26 14:55 RBC 3.62 L Hgb 10.5 L Hct 35.0 L MCHC 30.0 L RDW 15.6 H Lymphocytes # Crenated Cell 2+ A Sodium Chloride 112 H 113 H Carbon Dioxide 21.2 L BUN Glucose 107 H AST Total Protein Albumin - Diagnostic Findings CT scan - chest: image reviewed Assessment and Plan Plan: Symptomatic intrathoracic paraesophageal hiatal hernia with secondary chronic reflux and erosive gastritis/duodenitis/gastritis. Esophageal stricture involving the mid and distal esophagus postdilatation Weight loss secondary to above COPD, mild, inactive and stable Rheumatoid arthritis maintain on a combination of xaljenz and prednisone on outpatient basis and the patient has obvious joint deformities involving the hands Thoracic kyphosis Difficulty with gait or mobility secondary to above and the patient walks around with help of a walker. Functionality is been affected due to age and RA and OA Hypertension Hyperlipidemia History of thyroid disease and the patient is currently on thyroid replacement Plan No absolute pulmonary contraindications for surgery under general anesthesia and I will support this patient and monitor postoperative course along with a eneral surgeon and surgery is to be done The patient's COPD is mild and currently inactive and stable I'm going to offer an incentive spirometer She will obviously need a stress dose hydrocortisone if surgery is being done as the patient has been chronically maintained on prednisone Home medications have been resumed PPI Thyroid hormone replacement We'll continue to follow
--- NOTE | 2023-01-01 12:25 | P.CRDCN ---
History of Present Illness History of present illness: HISTORY OF PRESENT ILLNESS: This is a 87-year-old female with a past medical history significant for hypertension and hyperlipidemia. Patient follows in the office with Dr. Collins. We have been asked to see the patient in consultation for cardiac risk assessment. The patient initially presented to the hospital with weight loss and dysphagia. Patient underwent EGD yesterday revealing mid to distal esophageal stricture and intrathoracic paraesophageal diaphragmatic hiatal hernia. She is an actively scheduled for surgical repair on with Dr. Walker. Patient examined this morning. She is sitting up in the chair. Patient denies chest pain or pressure. She denies shortness of breath. She reports nausea but no vomiting. Vital signs are stable. * EKG reveals sinus mechanism with right bundle branch block. No signs of acute ischemia. * Laboratory data: WBC 6.27. Hemoglobin 10.5. Platelet count 173. Sodium 141. Potassium 3.9. BUN 9. Creatinine 0.69. * Current home cardiac medications include rosuvastatin 20 mg daily, lisinopril 10 mg daily, atenolol 25 mg daily * Most recent echocardiogram obtained in the office in October 2021 revealed ej ection fraction 55-60%, mild to moderate aortic regurgitation, mild mitral regurgitation, and mild tricuspid regurgitation * Patient underwent Lexiscan stress test in June 2021 which was negative for ischemia REVIEW OF SYSTEMS: At the time of my exam: CONSTITUTIONAL: Denies fever or chills. HEENT: Denies blurred vision, vision changes, or eye pain. Denies hemoptysis CARDIOVASCULAR: Denies chest pain. Denies orthopnea. Denies PND. Denies palpitations RESPIRATORY: Denies shortness of breath. GASTROINTESTINAL: Denies abdominal pain. Denies nausea or vomiting. HEMATOLOGIC: Denies bleeding disorders. GENITOURINARY: Denies any blood in urine. SKIN: Denies pruitis. Denies rash. PHYSICAL EXAM: VITAL SIGNS: Reviewed. GENERAL: Well-developed in no acute distress. HEENT: Head is normocephalic. Pupils are equal, round. Sclerae anicteric. Mucous membranes of the mouth are moist. Neck supple. No JVD or thyromegaly LUNGS: Respirations even and unlabored. Lungs essentially clear to auscultation bilaterally. HEART: Regular rate and rhythm. S1 and S2 heard. Systolic murmur noted. ABDOMEN: Soft. Nondistended. Nontender. EXTREMITIES: Normal range of motion. No clubbing or cyanosis. Peripheral pulses intact. No lower extremity edema NEUROLOGIC: Awake and alert. Oriented x 3. ASSESSMENT: Dysphagia Nausea Mid to distal esophageal stricture Intrathoracic paraesophageal diaphragmatic hiatal hernia Hypertension Hyperlipidemia PLAN: Resume home cardiac medications Obtain 2-D echo to assess cardiac structure and function Patient without complaints of angina. Clinically, no evidence of heart failure There are no absolute contraindications for patient to proceed with surgery from a cardiac standpoint Further recommendations pending patient's course Nurse practitioner note has been reviewed by physician. Signing provider agrees with the documented findings, assessment, and plan of care. Past Medical History Past Medical History: GERD/Reflux, Hyperlipidemia, Hypertension, Osteoarthritis (OA), Rheumatoid Arthritis (RA), Thyroid Disorder Additional Past Medical History / Comment(s): diverticulitis,chronic neck pain, hx ulcerative esophagus, anemia, WOUND TO BOTTOM OF LT FOOT-, CHRONIC HIP PAIN History of Any Multi-Drug Resistant Organisms: None Reported Past Surgical History: Adenoidectomy, Joint Replacement, Tonsillectomy Additional Past Surgical History / Comment(s): BILATERAL KNEES REPLACEMENTS,EXPLORATORY LAPAROTOMY, EGD & colonoscopy, DRAINED 150 CC FLUID FROM RT KNEE AT [facility] YEARS AGO , BILAT CATARACTS Past Anesthesia/Blood Transfusion Reactions: No Reported Reaction Past Psychological History: Anxiety, Depression Smoking Status: Former smoker Past Alcohol Use History: None Reported Additional Past Alcohol Use History / Comment(s): QUIT SMOKING APPROX 1989, SMOKED FOR APPROX 20 YRS Past Drug Use History: None Reported - Past Family History Mother Family Medical History: No Reported History Medications and Allergies Home Medications Medication Instructions Recorded Confirmed Type Esomeprazole Magnesium [NexIUM] 40 mg PO DAILY 08/31/13 12/28/22 History Levothyroxine Sodium [Synthroid] 50 mcg PO DAILY 08/31/13 12/28/22 History atenoloL [Atenolol] 25 mg PO DAILY 01/11/14 12/28/22 History DULoxetine HCL [Cymbalta] 60 mg PO DAILY 04/05/14 12/28/22 History polyethylene glycoL 3350 [Miralax] 17 gm PO DAILY 03/09/15 12/28/22 History Tofacitinib Citrate [Xeljanz] 5 mg PO BID 07/16/18 12/28/22 History predniSONE 5 mg PO DAILY 07/16/18 12/28/22 History Carboxymethylcellulose Sodium 1 drop BOTH EYES QID PRN 12/28/22 12/28/22 History [Refresh Tears] Fluticasone Nasal [place] [Flonase 1 spray EA NOSTRIL DAILY 12/28/22 12/28/22 History Nasal [place]] HYDROcodone/APAP 10-325MG [[place] 1 tab PO Q6H PRN 12/28/22 12/28/22 History 10-325] Multivit-Min/Iron/Folic/Lutein 1 tab PO DAILY 12/28/22 12/28/22 History [Centrum Silver Women Tablet] Rosuvastatin [Crestor] 20 mg PO DAILY 12/28/22 12/28/22 History Sucralfate [Carafate] 1 gm PO AC-BID 12/28/22 12/28/22 History lisinopriL [Zestril] 10 mg PO DAILY 12/28/22 12/28/22 History Allergies Allergy/AdvReac Type Severity Reaction Status Date / Time No Known Allergies Allergy Verified 12/28/22 21:29 Physical Exam Vitals: Vital Signs Temp Pulse Resp BP Pulse Ox 01/01/23 07:18 98.6 F 65 17 163/56 98 01/01/23 02:00 98.6 F 67 135/66 97 12/31/22 19:54 98.2 F 85 16 107/57 97 12/31/22 14:00 97.5 F L 62 17 138/64 94 L 12/31/22 13:01 61 16 179/80 97 12/31/22 12:46 60 16 173/79 98 12/31/22 12:31 98.4 F 61 16 178/77 100 Intake and Output 12/31/22 01/01/23 01/01/23 22:59 06:59 14:59 Intake Total 900 Output Total 800 200 300 Balance -800 -200 600 Intake: Intake, IV Titration 900 Amount Sodium Chloride 0.9% 1, 900 000 ml @ 75 mls/hr IV . [id number] [facility] Rx#:[id number] Output: Urine 800 200 300 Stool 0 Other: Voiding Method External Catheter External Catheter # Bowel Movements 1 Results 12/31/22 06:26 12/31/22 14:55 Comprehensive Metabolic Panel 12/31/22 Range/Units 14:55 Sodium 141 (137-145) mmol/L Potassium 3.9 (3.5-5.1) mmol/L Chloride 113 H (98-107) mmol/L Carbon Dioxide 23 (22-30) mmol/L BUN 9 (7-17) mg/dL Creatinine 0.69 (0.52-1.04) mg/dL Glucose 107 H (74-99) mg/dL Calcium 8.5 (8.4-10.2) mg/dL Current Medications Generic Name Dose Route Start Last Admin Trade Name Freq PRN Reason Stop Dose Admin Atenolol 25 mg 12/30/22 09:00 01/01/23 09:11 Atenolol 25 Mg Tab PO 25 mg DAILY DEREJE Administration Fluticasone Propionate 1 spray 12/30/22 09:00 01/01/23 09:11 Fluticasone 50mcg/[place] Nasal 16gm EA NOSTRIL 1 spray DAILY DEREJE Administration Heparin Sodium (Porcine) 5,000 unit 12/29/22 21:00 01/01/23 09:13 Heparin Sodium,Porcine 5,000 Unit/Ml 1 Ml Vial SQ Not Given Q12HR DEREJE Hydralazine HCl 10 mg 12/29/22 11:18 12/30/22 10:42 Hydralazine Hcl 20 Mg/Ml 1 Ml Vial IVP 10 mg Q4HR PRN Administration Blood Pressure - High Hydromorphone HCl 0.5 mg 12/29/22 11:16 12/30/22 20:14 Hydromorphone 0.5 Mg/0.5 Ml Syringe IVP 0.5 mg Q6HR PRN Administration Severe Pain (Scale 7 to 10) Sodium Chloride 1,000 mls @ 75 mls/hr 12/29/22 11:15 01/01/23 07:33 Saline 0.9% IV Not Given .[id number] DEREJE Lorazepam 0.25 mg 12/31/22 20:36 12/31/22 21:59 Lorazepam 2 Mg/Ml Inj IV 0.25 mg ONCE PRN Administration Anxiety Pantoprazole Sodium 40 mg 12/29/22 11:30 01/01/23 11:02 Pantoprazole 40 Mg/10 Ml Vial IVP Not Given DAILY DEREJE Prednisone 5 mg 12/30/22 09:00 01/01/23 09:11 Prednisone 5 Mg Tab PO 5 mg DAILY DEREJE Administration Temazepam 15 mg 12/30/22 20:04 12/30/22 22:01 Temazepam 15 Mg Cap PO 15 mg HS PRN Administration Insomnia Intake and Output 12/31/22 01/01/23 01/01/23 22:59 06:59 14:59 Intake Total 900 Output Total 800 200 300 Balance -800 -200 600 Intake: Intake, IV Titration 900 Amount Sodium Chloride 0.9% 1, 900 000 ml @ 75 mls/hr IV . [id number] [facility] Rx#:[id number] Output: Urine 800 200 300 Stool 0 Other: Voiding Method External Catheter External Catheter # Bowel Movements 1 12/31/22 06:26 12/31/22 14:55
--- NOTE | 2023-01-01 14:52 | XR ---
EXAMINATION TYPE: XR chest 2V DATE OF EXAM: 01/01/2023 COMPARISON: 12/28/2020 TECHNIQUE: PA and lateral views submitted. HISTORY: Mediastinal mass FINDINGS: No pneumothorax. Osseous structures demonstrate hypertrophic and degenerative changes of the spine. T here is a right retrocardiac masslike area of density appears to be related to a hiatal or diaphragma tic hernia. Underlying COPD. Minimal blunting the right costophrenic angle. There is a small right pl eural effusion but no pneumothorax. Contrast within the bowel in the abdomen noted. Diffuse osteopeni a. IMPRESSION: 1. Retrocardiac lobulated masslike density appears to correspond to a large diaphragmatic or hiatal h ernia. 2. Small right pleural effusion. 3. COPD.
[2023-01-01] MEDS: lisinopriL 10 MG TAB PO SCH (15:52)
--- NOTE | 2023-01-01 18:54 | FL ---
EXAMINATION TYPE: FL barium swallow DATE OF EXAM: 01/01/2023 CLINICAL INDICATION: 87-year-old female with dysphagia, vomiting and weight loss, known hiatal hernia . COMPARISON: CT 12/29/2022 Total Fluoroscopy Time: 1 minute 18 seconds Total DAP: 144.2 30 images obtained. FINDINGS: Single contrast exam was utilized due to patient's condition. The swallowing mechanism is normal and hypopharyngeal anatomy is preserved. The proximal third of the thoracic esophagus is patulous. The mid to distal third shows severe tertia ry peristaltic waves. There appears to be an underlying large hiatal hernia with obstruction at the e xpected GE junction and only occasional trickle flow into the hiatal hernia which appears to be predo minantly located at the medial right base. IMPRESSION: 1. Marked presbyesophagus. 2. Obstruction at the level of the GE junction, possibly due to marked tortuosity of the herniated st omach which is located at the medial right base. Correlate to exclude an obstructing mass at the dist al esophagus.
[2023-01-01] MEDS: TEMAZEPAM 15 MG CAP PO PRN (21:52)
--- NOTE | 2023-01-02 06:38 | P.PN ---
Subjective Progress Note Date: 01/01/23 This is a pleasant 87-year-old female who was recently admitted with severe weakness and severe protein calorie malnutrition was scheduled to have PEG tube placed today but patient is not a candidate as there is complete 100%. Esophageal intrathoracic hiatal hernia and to high risk for surgical interve ntion. Patient is plan for EGD today which is pending.. General surgery Dr. Walker following and patient is currently nothing by mouth. Patient reports attempting pills and oral intake although unable to tolerate. Patient has been spitting them back up. Patient is afebrile denies chest pain or shortness of breath. Patient be evaluated by physical therapy. A.m. labs pending. Will follow up. Await surgical report. 01/01/2023 Patient is seen in follow-up this morning scheduled to undergo barium swallow study this patient is status post EGD with balloon dilatation with Dr. Walker yesterday. Pulmonary and cardiology being consulted as patient was noted to have paraesophageal hernia and being considered for repair. Patient has been having significant dysphagia with inability to tolerate oral intake. Biopsies were also obtained during the EGD which are pending. Patient is afebrile denies chest pain or shortness of breath. Patient started on pured diet and reports to tolerating. Recommend aspiration precautions and head of the bed elevated 30-45 at all times. Review of systems: Constitutional: No reports of fatigue, fever, or chills Cardiovascular: No reports of chest pain or palpitations Respiratory: No reports of shortness of breath or cough GI: No reports of nausea, no reports of vomiting, reports tolerating oral intake : No reports of dysuria or retention Neurovascular: reports of generalized weakness All medications have been reviewed PHYSICAL EXAMINATION: GENERAL: The patient is alert and oriented x4, Well developed, thin built, elderly appearing. HEENT: Pupils are round and equally reacting to light. EOMI. no scleral icterus. No conjunctival pallor. Normocephalic, atraumatic. No pharyngeal erythema. No thyromegaly. CARDIOVASCULAR: S1 and S2 muffled PULMONARY: diminished breath sounds bilaterally with no wheezing or rhonchi n oted. ABDOMEN: soft. Nontender on exam. non-distended, normoactive bowel sounds. No palpable organomegaly. MUSCULOSKELETAL: No joint swelling or deformity. EXTREMITIES: No cyanosis, clubbing, or pedal edema. NEUROLOGICAL: Gross neurological examination did not reveal any focal deficits. Diffuse weakness SKIN: No rashes. 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 stricture Intrathoracic paraesophageal diaphragmatic hiatal hernia is noted on EGD with erosive esophagitis Hypertension history Hyperlipidemia history GERD History of osteoarthritis and rheumatoid arthritis History of anxiety/depression Former smoker GI prophylaxis DVT prophylaxis No code Plan: Patient underwent EGD with balloon dilatation with Dr. Walker yesterday and is scheduled for barium swallow study today. Started on pured diet and tolerating Gen. surgery following with plans for paraesophageal hernia repair and has put cardiology and pulmonary on consult for medical clearance. Plan for surgery on 2022 Recommend PT/OT therapy evaluation with case management as patient has significant weakness, possible need for ECF, patient reports returning home on discharge Due to multiple convex medical issues, prognosis is guarded The impression and plan of care has been dictated by Brea Barclay, nurse practitioner as directed. Dr. Parish MD I have performed a history and examination and MDM of this patient, discussed the same with the dictator, and agree with the dictator's assessment and plan as written ,documented as a scribe. Based on total visit time, I have performed more than 50% of the visit. Any additional findings or plans will be noted. Objective - Vital Signs Vital signs: Vital Signs Temp 98 F 01/02/23 02:00 Pulse 48 L 01/02/23 02:00 Resp 16 01/01/23 19:52 BP 138/64 01/02/23 02:00 Pulse Ox 98 01/02/23 02:00 FiO2 Intake & Output 01/01/23 01/01/23 01/02/23 06:59 18:59 06:59 Intake Total 900 Output Total 200 300 810 Balance -200 600 -810 Intake: Intake, IV Titration 900 Amount Sodium Chloride 0.9% 1, 900 000 ml @ 75 mls/hr IV . [id number] [facility] Rx#:[id number] Output: Urine 200 300 810 Other: Voiding Method External Catheter External Catheter Diaper External Catheter # Voids 3 # Bowel Movements 1 - Labs CBC & Chem 7: 12/31/22 06:26 12/31/22 14:55
--- NOTE | 2023-01-02 07:47 | CA ---
Transthoracic Echo Report Name: Erika Rosas Age: 87 Gender: F : 1935 Exam Date: 01/01/2023 16:01 Exam Location: [facility] Ht (in): 59 Wt (lb): 85 Ordering Physician: Jeanette Walker MD Attending/Referring Phys: Denise CHEUNG Associate Director Of Nursing Steffanie Newberry [facility] Procedure CPT: Indications: abnormal ekg Cardiac Hx: Technical Quality: Fair Contrast 1: Total Dose (mL): Contrast 2: Total Dose (mL): MEASUREMENTS (Male / Female) Normal Values 2D ECHO LV Diastolic Diameter PLAX 4.2 cm 4.2 - 5.9 / 3.9 - 5.3 cm LV Systolic Diameter PLAX 2.9 cm IVS Diastolic Thickness 0.9 cm 0.6 - 1.0 / 0.6 - 0.9 cm LVPW Diastolic Thickness 0.8 cm 0.6 - 1.0 / 0.6 - 0.9 cm LV Relative Wall Thickness 0.4 LVOT Diameter 2.0 cm LA Systolic Diameter LX 3.3 cm 3.0 - 4.0 / 2.7 - 3.8 cm M-MODE Aortic Root Diameter MM 2.7 cm AV Cusp Separation MM 1.9 cm DOPPLER AV Peak Velocity 107.7 cm/s AV Peak Gradient 4.6 mmHg AV Mean Velocity 72.4 cm/s AV Mean Gradient 2.4 mmHg AV Velocity Time Integral 24.0 cm LVOT Peak Velocity 95.9 cm/s LVOT Peak Gradient 3.7 mmHg LVOT Velocity Time Integral 23.4 cm LVOT Stroke Volume 76.4 cm??? LVOT Stroke Volume Index 59.6 ml/m??? LVOT Cardiac Index 2970.3 cm???/min???m??? AV Area Cont Eq vti 3.2 cm??? AV Area Cont Eq pk 2.9 cm??? Mitral E Point Velocity 74.5 cm/s Mitral A Point Velocity 86.4 cm/s Mitral E to A Ratio 0.9 MV Deceleration Time 183.5 ms LV E' Lateral Velocity 6.4 cm/s Mitral E to LV E' Lateral Ratio 11.6 LV E' Septal Velocity 5.3 cm/s Mitral E to LV E' Septal Ratio 14.2 TR Peak Velocity 239.5 cm/s TR Peak Gradient 22.9 mmHg Right Atrial Pressure 15.0 mmHg Pulmonary Artery Systolic Pressu 37.9 mmHg Right Ventricular Systolic Press 37.9 mmHg FINDINGS Left Ventricle Normal Left ventricular size, wall thickness, systolic function with no obvious regional wall motion abnormalities. Left ventricular ejection fraction is estimated at 55-60%.normal left ventricular wall motion. Right Ventricle Normal right ventricular size. Mild pulmonary hypertension. Right Atrium Normal right atrial size. Left Atrium Moderate left atrial dilatation. Mitral Valve Structurally normal mitral valve. Mitral valve thickened. Mild mitral regurgitation. Aortic Valve Aortic valve not well visualized. Focal thickening of the aortic valve cusps. Aortic valve sclerosis. Mild aortic regurgitation. Tricuspid Valve Structurally normal tricuspid valve. Mild tricuspid regurgitation. Pulmonic Valve Pulmonic valve not well visualized. Pericardium No pericardial effusion. Aorta Normal size aortic root. CONCLUSIONS 1. Normal left ventricular size and systolic function 2. Mild mitral, aortic and tricuspid regurgitation Previewed by: Dr. Mark Gerard MD (Electronically Signed) Final Date: 02 January 2023 07:46
[2023-01-02] MEDS: SODIUM CHLORIDE 0.9% 1,000 ML IV SCH (09:38)
--- NOTE | 2023-01-02 09:39 | P.PN ---
Subjective Progress Note Date: 01/02/23 This is a 87-year-old female with a past medical history significant for hypertension and hyperlipidemia. Patient follows in the office with Dr. Collins. We have been asked to see the patient in consultation for cardiac risk assessment. The patient initially presented to the hospital with weight loss and dysphagia. Patient underwent EGD revealing mid to distal esophageal stricture and intrathoracic paraesophageal diaphragmatic hiatal hernia. She is an actively scheduled for surgical repair on with Dr. Walker. * EKG reveals sinus mechanism with right bundle branch block. No signs of acute ischemia. * Laboratory data: WBC 6.27. Hemoglobin 10.5. Platelet count 173. Sodium 141. Potassium 3.9. BUN 9. Creatinine 0.69. * Current home cardiac medications include rosuvastatin 20 mg daily, lisinopril 10 mg daily, atenolol 25 mg daily * Echocardiogram obtained in the office in October 2021 revealed ejection fraction 55-60%, mild to moderate aortic regurgitation, mild mitral regurgitation, and mild tricuspid regurgitation * Patient underwent Lexiscan stress test in June 2021 which was negative for ischemia 01/02/2023 The patient was seen and examined resting comfortably in bed. She continues to have some nausea and emesis after eating. She denies any chest discomfort, cindi rtness of breath, orthopnea or PND or edema. She had no palpitations or dizziness. She is anticipating surgery tomorrow with Dr. Walker. Echocardiogram with Doppler study showed a normal LV systolic function with mild MR, AI and TR. Objective - Vital Signs Vital signs: Vital Signs Temp 98.0 F 01/02/23 06:46 Pulse 60 01/02/23 06:46 Resp 16 01/02/23 06:46 BP 167/70 01/02/23 06:46 Pulse Ox 100 01/02/23 06:46 FiO2 Intake & Output 01/01/23 01/02/23 01/02/23 18:59 06:59 18:59 Intake Total 900 Output Total 300 810 Balance 600 -810 Intake: Intake, IV Titration 900 Amount Sodium Chloride 0.9% 1, 900 000 ml @ 75 mls/hr IV . [id number] [facility] Rx#:[id number] Output: Urine 300 810 Other: Voiding Method External Catheter Diaper External Catheter # Voids 3 # Bowel Movements 1 - Exam HEENT: Head is normocephalic. Pupils are equal, round. Sclerae anicteric. Mucous membranes of the mouth are moist. Neck supple. No JVD or thyromegaly LUNGS: Respirations even and unlabored. Lungs essentially clear to auscultation bilaterally. HEART: Regular rate and rhythm. S1 and S2 heard. Systolic murmur noted. ABDOMEN: Soft. Nondistended. Nontender. EXTREMITIES: Normal range of motion. No clubbing or cyanosis. Peripheral pulses intact. No lower extremity edema NEUROLOGIC: Awake and alert. Oriented x 3. - Labs CBC & Chem 7: 12/31/22 06:26 12/31/22 14:55 Assessment and Plan Assessment: Dysphagia Nausea Mid to distal esophageal stricture Intrathoracic paraesophageal diaphragmatic hiatal hernia, anticipating surgical intervention tomorrow Hypertension Hyperlipidemia Plan: From cardiology's perspective medications were reviewed and we will continue the same. Patient continues be without complaints of angina with no clinical evidence of heart failure. There are no absolute contraindications for patient to proceed with surgery from a cardiac standpoint. [employer] note has been reviewed, I agree with a documented findings and plan of care. Patient was seen and examined.
[2023-01-02] MEDS: FLUTICASONE 50MCG/SPRAY NASAL 16GM EA NOSTRIL SCH (10:27)
[2023-01-02] MEDS: atenoloL 25 MG TAB PO SCH (10:27)
[2023-01-02] MEDS: ATORVASTATIN 40 MG TAB PO SCH (10:27)
[2023-01-02] MEDS: HEPARIN SODIUM,PORCINE 5,000 UNIT/ML 1 ML VIAL SQ SCH ×2 (10:27→22:00)
[2023-01-02] MEDS: predniSONE 5 MG TAB PO SCH (10:28)
[2023-01-02] MEDS: lisinopriL 10 MG TAB PO SCH (10:28)
[2023-01-02] MEDS: PANTOPRAZOLE 40 MG/10 ML VIAL IVP SCH (10:28)
--- NOTE | 2023-01-02 13:07 | P.PN ---
Subjective Progress Note Date: 01/02/23 CHIEF COMPLAINT: Dysphagia and weight loss HISTORY OF PRESENT ILLNESS: Patient is postop day #2 status post EGD with dilation of esophageal stricture. EGD did also reveal intrathoracic paraesophageal diaphragmatic hiatal hernia, erosive esophagitis, chronic gastritis, duodenitis. Patient started on a pured diet. Patient did report vomiting this morning after breakfast. Modified barium swallow shows marked presbyesophagus. Obstruction at the level of the GE junction possibly due to marked tortuosity of the herniated stomach. Patient has been cleared by cardiology and pulmonary service for surgery. Afebrile. PHYSICAL EXAM: VITAL SIGNS: Reviewed GENERAL: Well-developed in no acute distress. HEENT: No sclera icterus. Extraocular movements grossly intact. Moist buccal mucosa. Head is atraumatic, normocephalic. Hears conversational speech. No nasal drainage. NECK: Supple without lymphadenopathy. CHEST: Non-labored respirations and equal bilateral excursions. CARDIOVASCULAR: Palpable 2+ radial pulses. ABDOMEN: Soft. Nondistended. Nontender. MUSCULOSKELETAL: No clubbing or cyanosis. NEUROLOGIC: No focal or lateralizing signs. Cranial nerves II through XII grossly intact. PSYCH: Appropriate affect. Alert and oriented to person, place and time. SKIN: Well perfused. Good skin turgor. ASSESSMENT: Mid to distal esophageal stricture Intrathoracic paraesophageal diaphragmatic hiatal hernia Gastroesophageal reflux disease with erosive esophagitis Gastritis, chronic Duodenitis Esophageal dysmotility PLAN: -Patient scheduled for paraesophageal hiatal hernia repair tomorrow, 01/03/[address] Walker -Nothing by mouth after midnight Physician Instrument Lens Inspector note has been reviewed by physician. Signing provider agrees with the documented findings, assessment, and plan of care. Objective - Vital Signs Vital signs: Vital Signs Temp 98.0 F 01/02/23 06:46 Pulse 60 01/02/23 06:46 Resp 16 01/02/23 06:46 BP 167/70 01/02/23 06:46 Pulse Ox 100 01/02/23 06:46 FiO2 Intake & Output 01/01/23 01/02/23 01/02/23 18:59 06:59 18:59 Intake Total 900 Output Total 300 810 Balance 600 -810 Intake: Intake, IV Titration 900 Amount Sodium Chloride 0.9% 1, 900 000 ml @ 75 mls/hr IV . [id number] [facility] Rx#:[id number] Output: Urine 300 810 Other: Voiding Method External Catheter Diaper External Catheter # Voids 3 # Bowel Movements 1 - Labs CBC & Chem 7: 12/31/22 06:26 12/31/22 14:55
--- NOTE | 2023-01-02 13:26 | P.PN ---
Subjective Progress Note Date: 01/02/23 This is an 87-year-old female patient was being considered for surgical repair of paraesophageal hiatal hernia. The patient has been having weight loss and further investigation for weight loss and dysphagia yielded that the patient had mid to distal esophageal stricture and the patient underwent a balloon dilatation. She also has intrathoracic paraesophageal hiatal hernia along with acid reflux and erosive esophagitis and chronic duodenitis and gastritis. I was asked to evaluate the pulmonary status. The patient is currently on room air oxygen. No difficulties with aspiration or any pneumonias. The patient has quit smoking more than 30 years ago. The patient is doing well. She has history of rheumatoid arthritis and the patient is currently on a combination of xeljanz/ prednisone. She has chronic deformities in her hands related to rheumatoid arthritis. No history of any interstitial lung disease related to rheumatoid arthritis. CAT scan of the chest and abdomen was done and the patient has no acute pulmonary abnormalities. No recent lymphadenopathy. No evidence of interstitial lung disease. Mild emphysematous changes. The patient has some limitation in her functionality. She walks around without help of a walker. She is unable to climb a flight of stairs. She is able to perform activities of day-to-day life and she was living independently at home. She has hypertension, hyperlipidemia, rheumatoid arthritis, and degenerative arthritis. On today's evaluation of 01/02/2023, the patient's condition is stable. The patient is awaiting her surgery for tomorrow. She remains on normal saline at 75 mL an hour. She is taking. He diet. No aspiration. No signs of pneumonia. Objective - Vital Signs Vital signs: Vital Signs Temp 98.0 F 01/02/23 06:46 Pulse 60 01/02/23 06:46 Resp 16 01/02/23 06:46 BP 167/70 01/02/23 06:46 Pulse Ox 100 01/02/23 06:46 FiO2 Intake & Output 01/01/23 01/02/23 01/02/23 18:59 06:59 18:59 Intake Total 900 Output Total 300 810 Balance 600 -810 Intake: Intake, IV Titration 900 Amount Sodium Chloride 0.9% 1, 900 000 ml @ 75 mls/hr IV . [id number] [facility] Rx#:[id number] Output: Urine 300 810 Other: Voiding Method External Catheter Diaper External Catheter # Voids 3 # Bowel Movements 1 - Exam GENERAL: Well-developed in no acute distress. The patient has been on room air oxygen. No signs of any respiratory distress at this point in time. HEENT: No sclera icterus. Extraocular movements grossly intact. Moist buccal mucosa. Head is atraumatic, normocephalic. Hears conversational speech. No nasal drainage. NECK: Supple without lymphadenopathy. CHEST: Non-labored respirations and equal bilateral excursions. Thoracic kyphosis present. CARDIOVASCULAR: Palpable 2+ radial pulses. ABDOMEN: Soft. Nondistended. Nontender. MUSCULOSKELETAL: No clubbing or cyanosis. NEUROLOGIC: No focal or lateralizing signs. Cranial nerves II through XII grossly intact. PSYCH: Appropriate affect. Alert and oriented to person, place and time. SKIN: Well perfused. Good skin turgor. - Labs CBC & Chem 7: 12/31/22 06:26 12/31/22 14:55 Assessment and Plan Plan: Symptomatic intrathoracic paraesophageal hiatal hernia with secondary chronic reflux and erosive gastritis/duodenitis/gastritis. Esophageal stricture involving the mid and distal esophagus postdilatation Weight loss secondary to above COPD, mild, inactive and stable Rheumatoid arthritis maintain on a combination of xaljenz and prednisone on outpatient basis and the patient has obvious joint deformities involving the hands Thoracic kyphosis Difficulty with gait or mobility secondary to above and the patient walks around with help of a walker. Functionality is been affected due to age and RA and OA Hypertension Hyperlipidemia History of thyroid disease and the patient is currently on thyroid replacement Plan Patient is scheduled to undergo surgery tomorrow which involves a repair of Paraesophageal hernia keep nothing by mouth No absolute pulmonary contraindications for surgery under general anesthesia and I will support this patient and monitor postoperative course along with a general surgeon and surgery is to be done The patient's COPD is mild and currently inactive and stable Continue using theve spirometer She will obviously need a stress dose hydrocortisone if surgery is being done as the patient has been chronically maintained on prednisone Home medications have been resumed PPI Thyroid hormone replacement We'll continue to follow
--- NOTE | 2023-01-02 13:53 | P.PN ---
Subjective Progress Note Date: 01/02/23 This is a pleasant 87-year-old female who was recently admitted with severe weakness and severe protein calorie malnutrition was scheduled to have PEG tube placed today but patient is not a candidate as there is complete 100%. Esophageal intrathoracic hiatal hernia and to high risk for surgical interve ntion. Patient is plan for EGD today which is pending.. General surgery Dr. Walker following and patient is currently nothing by mouth. Patient reports attempting pills and oral intake although unable to tolerate. Patient has been spitting them back up. Patient is afebrile denies chest pain or shortness of breath. Patient be evaluated by physical therapy. A.m. labs pending. Will follow up. Await surgical report. 01/01/2023 Patient is seen in follow-up this morning scheduled to undergo barium swallow study this patient is status post EGD with balloon dilatation with Dr. Walker yesterday. Pulmonary and cardiology being consulted as patient was noted to have paraesophageal hernia and being considered for repair. Patient has been having significant dysphagia with inability to tolerate oral intake. Biopsies were also obtained during the EGD which are pending. Patient is afebrile denies chest pain or shortness of breath. Patient started on pured diet and reports to tolerating. Recommend aspiration precautions and head of the bed elevated 30-45 at all times. 01/02/2023 Patient is seen and evaluated today sitting up in the chair reports to doing relatively well. Patient did have one episode of frothy vomit this morning after breakfast. Patient is maintained on pured diet and will be nothing by mouth at midnight. Patient is scheduled for paraesophageal hernia repair with Dr. King on 01/03/2023. Patient has been seen and evaluated by cardiology along with pulmonary with no absolute contraindication to surgery and has been cleared for surgical intervention tomorrow. Patient has discussed the risks versus the benefits and is willing to proceed. Patient reports she was slightly anxious at first about having a surgery although feels it is necessary and is agreeable with this. Patient ambulates independently with a 4 wheeled walker and has assistive devices in the home and has home care. Patient's 4 wheeled walker is broken has no breaks and would benefit from a new 4 wheeled walker to assist patient with everyday walking tasks and ADLs. Patient is afebrile with no reported chest pain or shortness of breath. Review of systems: Constitutional: No reports of fatigue, fever, or chills Cardiovascular: No reports of chest pain or palpitations Respiratory: No reports of shortness of breath or cough GI: No reports of nausea, reports of one episode of vomiting this a.m., reports tolerating oral intake : No reports of dysuria or retention Neurovascular: reports of generalized weakness All medications have been reviewed PHYSICAL EXAMINATION: GENERAL: The patient is alert and oriented x4, Well developed, thin built, eld erly appearing. HEENT: Pupils are round and equally reacting to light. EOMI. no scleral icterus. No conjunctival pallor. Normocephalic, atraumatic. No pharyngeal erythema. No thyromegaly. CARDIOVASCULAR: S1 and S2 muffled PULMONARY: diminished breath sounds bilaterally with no wheezing or rhonchi noted. ABDOMEN: soft. Nontender on exam. non-distended, normoactive bowel sounds. No palpable organomegaly. MUSCULOSKELETAL: No joint swelling or deformity. EXTREMITIES: No cyanosis, clubbing, or pedal edema. NEUROLOGICAL: Gross neurological examination did not reveal any focal deficits. Diffuse weakness SKIN: No rashes. 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 Walker and is scheduled for her esophageal hernia repair on 01/03/2023. Patient has been evaluated by cardiology and pulmonary and has been cleared with no absolute contraindications to surgical intervention. Patient is maintained on pured diet and will be nothing by mouth at midnight. Patient did have one episode of vomiting shortly after breakfast. Plan is for returning home once cleared by consultations and discharged. Patient normally uses a 4 wheeled walker and hers is currently broken with outbreaks and social work following and a prescription was provided to obtain a new walker as patient uses a walker every day for steady gait and performing lyla ADLs. Due to multiple convex medical issues, prognosis is guarded The impression and plan of care has been dictated by Brea Barclay, nurse practitioner as directed. Dr. Parish MD I have performed a history and examination and MDM of this patient, discussed the same with the dictator, and agree with the dictator's assessment and plan as written ,documented as a scribe. Based on total visit time, I have performed more than 50% of the visit. Any additional findings or plans will be noted. Objective - Vital Signs Vital signs: Vital Signs Temp 98.0 F 01/02/23 12:05 Pulse 63 01/02/23 12:05 Resp 17 01/02/23 12:05 BP 132/62 01/02/23 12:05 Pulse Ox 98 01/02/23 12:05 FiO2 Intake & Output 01/01/23 01/02/23 01/02/23 18:59 06:59 18:59 Intake Total 900 Output Total 300 810 Balance 600 -810 Weight 38.555 kg Intake: Intake, IV Titration 900 Amount Sodium Chloride 0.9% 1, 900 000 ml @ 75 mls/hr IV . [id number] [facility] Rx#:[id number] Output: Urine 300 810 Other: Voiding Method External Catheter Diaper External Catheter # Voids 3 # Bowel Movements 1 - Labs CBC & Chem 7: 12/31/22 06:26 12/31/22 14:55
[2023-01-02] MEDS: TEMAZEPAM 15 MG CAP PO PRN (22:21)
[2023-01-03] MEDS: SODIUM CHLORIDE 0.9% 1,000 ML IV SCH ×2 (03:43→12:36)
[2023-01-03] MEDS: atenoloL 25 MG TAB PO SCH (07:03)
[2023-01-03] MEDS: lisinopriL 10 MG TAB PO SCH (07:03)
[2023-01-03] MEDS: predniSONE 5 MG TAB PO SCH (07:56)
[2023-01-03] MEDS: HEPARIN SODIUM,PORCINE 5,000 UNIT/ML 1 ML VIAL SQ SCH ×2 (07:56→20:47)
[2023-01-03] MEDS: PANTOPRAZOLE 40 MG/10 ML VIAL IVP SCH (07:56)
[2023-01-03] MEDS: FLUTICASONE 50MCG/SPRAY NASAL 16GM EA NOSTRIL SCH (07:56)
[2023-01-03] MEDS: ATORVASTATIN 40 MG TAB PO SCH (07:56)
[2023-01-03] MEDS ORDERED: LACTATED RINGERS 1,000 ML IV ONE (08:15)
[2023-01-03] MEDS ORDERED: ONDANSETRON 4 MG/2 ML VIAL ONE (08:19)
[2023-01-03] MEDS ORDERED: HEPARIN SODIUM,PORCINE/PF 5,000 UNIT/0.5 ML SYRINGE SQ ONE (08:19)
[2023-01-03] MEDS ORDERED: HYDROCORTISONE SUCCINATE 100 MG/2 ML VIAL IVP ONE (08:25)
[2023-01-03] MEDS ORDERED: ONDANSETRON 4 MG/2 ML VIAL IVP ONE (08:25)
[2023-01-03] MEDS ORDERED: HEPARIN SODIUM,PORCINE 5,000 UNIT/ML 1 ML VIAL SQ ONE (08:25)
[2023-01-03] MEDS ORDERED: ePHEDrine 50 MG/ML 1 ML VIAL ONE (09:04)
[2023-01-03] MEDS ORDERED: NEOSTIGMINE 1 MG/ML 10 ML VIAL ONE (09:04)
[2023-01-03] MEDS ORDERED: SUCCINYLCHOLINE CHLORIDE 200 MG/10 ML VIAL IV ONE (09:04)
[2023-01-03] MEDS ORDERED: GLYCOPYRROLATE 0.2 MG/ML 2 ML VIAL ONE (09:04)
[2023-01-03] MEDS ORDERED: fentaNYL (PF) 50 MCG/ML 2 ML AMP ONE (09:04)
[2023-01-03] MEDS ORDERED: PHENYLEPHRINE-0.9% NACL SYG 1,000 MCG/10 ML SYRINGE ONE (09:04)
[2023-01-03] MEDS ORDERED: ROCURONIUM 10 MG/ML (5 ML VIAL) IV ONE (09:04)
[2023-01-03] MEDS ORDERED: LIDOCAINE 2% INJ 20 MG/ML (2 ML VIAL) ONE (09:04)
[2023-01-03] MEDS ORDERED: PROPOFOL 10 MG/ML 20 ML VIAL IV ONE (09:04)
[2023-01-03] MEDS ORDERED: SODIUM CHLORIDE 0.9% 50 ML with ceFAZolin 1,000 MG IV ONE ×2 (09:07)
[2023-01-03] MEDS ORDERED: LIDOCAINE 1%-EPI 1:100,000 50 ML VIAL SQ ONE ×2 (09:35→09:43)
[2023-01-03] MEDS ORDERED: HYDROmorphone 0.5 MG/0.5 ML SYRINGE IVP ONE ×2 (11:32)
--- NOTE | 2023-01-03 11:41 | P.PN ---
Progress Note - Text Attempted to see patient on two different occasions during cardiology rounds. Patient not in her room as she was down for surgery. We will reevaluate patient tomorrow. Please call with questions or concerns.
--- NOTE | 2023-01-03 12:33 | P.PN ---
Subjective Progress Note Date: 01/03/23 This is an 87-year-old female patient was being considered for surgical repair of paraesophageal hiatal hernia. The patient has been having weight loss and further investigation for weight loss and dysphagia yielded that the patient had mid to distal esophageal stricture and the patient underwent a balloon dilatation. She also has intrathoracic paraesophageal hiatal hernia along with acid reflux and erosive esophagitis and chronic duodenitis and gastritis. I was asked to evaluate the pulmonary status. The patient is currently on room air oxygen. No difficulties with aspiration or any pneumonias. The patient has quit smoking more than 30 years ago. The patient is doing well. She has history of rheumatoid arthritis and the patient is currently on a combination of xeljanz/ prednisone. She has chronic deformities in her hands related to rheumatoid arthritis. No history of any interstitial lung disease related to rheumatoid arthritis. CAT scan of the chest and abdomen was done and the patient has no acute pulmonary abnormalities. No recent lymphadenopathy. No evidence of interstitial lung disease. Mild emphysematous changes. The patient has some limitation in her functionality. She walks around without help of a walker. She is unable to climb a flight of stairs. She is able to perform activities of day-to-day life and she was living independently at home. She has hypertension, hyperlipidemia, rheumatoid arthritis, and degenerative arthritis. On today's evaluation of 01/02/2023, the patient's condition is stable. The patient is awaiting her surgery for tomorrow. She remains on normal saline at 75 mL an hour. She is taking. He diet. No aspiration. No signs of pneumonia. On 01/03/2023, the patient will be taken to the operating room. We'll monitor this patient along with the surgical team and will make recommendations should there be any need regarding postoperative pulmonary care. As stated, the patient has been on 5 mg of prednisone and I'm going to stop this and give the patient hydrocortisone 100 mg every 8 hours. Objective - Vital Signs Vital signs: Vital Signs Temp 98.2 F 01/03/23 07:59 Pulse 56 L 01/03/23 07:59 Resp 16 01/03/23 07:59 BP 186/80 01/03/23 07:59 Pulse Ox 98 01/03/23 07:59 FiO2 Intake & Output 01/02/23 01/03/23 01/03/23 18:59 06:59 18:59 Intake Total 250 Output Total 400 Balance -400 250 Weight 38.555 kg Intake: IV 250 Output: Urine 400 Other: Voiding Method External Catheter External Catheter - Exam GENERAL: Well-developed in no acute distress. The patient has been on room air oxygen. No signs of any respiratory distress at this point in time. HEENT: No sclera icterus. Extraocular movements grossly intact. Moist buccal mucosa. Head is atraumatic, normocephalic. Hears conversational speech. No nasal drainage. NECK: Supple without lymphadenopathy. CHEST: Non-labored respirations and equal bilateral excursions. Thoracic kyphosis present. CARDIOVASCULAR: Palpable 2+ radial pulses. ABDOMEN: Soft. Nondistended. Nontender. MUSCULOSKELETAL: No clubbing or cyanosis. NEUROLOGIC: No focal or lateralizing signs. Cranial nerves II through XII grossly intact. PSYCH: Appropriate affect. Alert and oriented to person, place and time. SKIN: Well perfused. Good skin turgor. - Labs CBC & Chem 7: 12/31/22 06:26 12/31/22 14:55 Assessment and Plan Plan: Symptomatic intrathoracic paraesophageal hiatal hernia with secondary chronic reflux and erosive gastritis/duodenitis/gastritis. Esophageal stricture involving the mid and distal esophagus postdilatation Weight loss secondary to above COPD, mild, inactive and stable Rheumatoid arthritis maintain on a combination of xaljenz and prednisone on outpatient basis and the patient has obvious joint deformities involving the hands Thoracic kyphosis Difficulty with gait or mobility secondary to above and the patient walks around with help of a walker. Functionality is been affected due to age and RA and OA Hypertension Hyperlipidemia History of thyroid disease and the patient is currently on thyroid replacement Plan Patient is scheduled to undergo repair of Paraesophageal hernia Start the patient on hydrocortisone 100 mg every 8 hours keep nothing by mouth No absolute pulmonary contraindications for surgery under general anesthesia and I will support this patient and monitor postoperative course along with a general surgeon and surgery is to be done The patient's COPD is mild and currently inactive and stable Continue using theve spirometer She will obviously need a stress dose hydrocortisone if surgery is being done as the patient has been chronically maintained on prednisone Home medications have been resumed PPI Thyroid hormone replacement We'll continue to follow
--- NOTE | 2023-01-03 15:44 | P.PN ---
Subjective Progress Note Date: 01/03/23 This is a pleasant 87-year-old female who was recently admitted with severe weakness and severe protein calorie malnutrition was scheduled to have PEG tube placed today but patient is not a candidate as there is complete 100%. Esophageal intrathoracic hiatal hernia and to high risk for surgical interve ntion. Patient is plan for EGD today which is pending.. General surgery Dr. Walker following and patient is currently nothing by mouth. Patient reports attempting pills and oral intake although unable to tolerate. Patient has been spitting them back up. Patient is afebrile denies chest pain or shortness of breath. Patient be evaluated by physical therapy. A.m. labs pending. Will follow up. Await surgical report. 01/01/2023 Patient is seen in follow-up this morning scheduled to undergo barium swallow study this patient is status post EGD with balloon dilatation with Dr. Walker yesterday. Pulmonary and cardiology being consulted as patient was noted to have paraesophageal hernia and being considered for repair. Patient has been having significant dysphagia with inability to tolerate oral intake. Biopsies were also obtained during the EGD which are pending. Patient is afebrile denies chest pain or shortness of breath. Patient started on pured diet and reports to tolerating. Recommend aspiration precautions and head of the bed elevated 30-45 at all times. 01/02/2023 Patient is seen and evaluated today sitting up in the chair reports to doing relatively well. Patient did have one episode of frothy vomit this morning after breakfast. Patient is maintained on pured diet and will be nothing by mouth at midnight. Patient is scheduled for paraesophageal hernia repair with Dr. King on 01/03/2023. Patient has been seen and evaluated by cardiology along with pulmonary with no absolute contraindication to surgery and has been cleared for surgical intervention tomorrow. Patient has discussed the risks versus the benefits and is willing to proceed. Patient reports she was slightly anxious at first about having a surgery although feels it is necessary and is agreeable with this. Patient ambulates independently with a 4 wheeled walker and has assistive devices in the home and has home care. Patient's 4 wheeled walker is broken has no breaks and would benefit from a new 4 wheeled walker to assist patient with everyday walking tasks and ADLs. Patient is afebrile with no reported chest pain or shortness of breath. 01/03/2023 Patient is currently nothing by mouth and going down to OR for paraesophageal hernia repair with Dr. King today. Will await surgical report. Patient is currently afebrile with no reported chest pain or shortness of breath. Blood pressure mildly elevated this morning and will receive home blood pressure medications prior to surgery. Patient has received cardiology and pulmonary clearance for surgical intervention today. Review of systems: Constitutional: No reports of fatigue, fever, or chills Cardiovascular: No reports of chest pain or palpitations Respiratory: No reports of shortness of breath or cough GI: No reports of nausea, no reports of vomiting this a.m., currently nothing by mouth : No reports of dysuria or retention Neurovascular: reports of generalized weakness All medications have been reviewed PHYSICAL EXAMINATION: GENERAL: The patient is alert and oriented x4, Well developed, thin built, elderly appearing. HEENT: Pupils are round and equally reacting to light. EOMI. no scleral icterus. No conjunctival pallor. Normocephalic, atraumatic. No pharyngeal erythema. No thyromegaly. CARDIOVASCULAR: S1 and S2 muffled PULMONARY: diminished breath sounds bilaterally with no wheezing or rhonchi noted. ABDOMEN: soft. Nontender on exam. non-distended, normoactive bowel sounds. No palpable organomegaly. MUSCULOSKELETAL: No joint swelling or deformity. EXTREMITIES: No cyanosis, clubbing, or pedal edema. NEUROLOGICAL: Gross neurological examination did not reveal any focal deficits. Diffuse weakness SKIN: No rashes. 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 stricture Intrathoracic paraesophageal diaphragmatic hiatal hernia is noted on EGD with erosive esophagitis Hypertension history Hyperlipidemia history GERD History of osteoarthritis and rheumatoid arthritis History of anxiety/depression Gait dysfunction Former smoker GI prophylaxis DVT prophylaxis No code Plan: Patient is scheduled to undergo paraesophageal hernia repair today and is currently nothing by mouth Blood pressure mildly elevated and will receive blood pressure medications Will await surgical report Prognosis is guarded The impression and plan of care has been dictated by Brea Barclay, nurse practitioner as directed. Dr. Parish MD I have performed a history and examination and MDM of this patient, discussed the same with the dictator, and agree with the dictator's assessment and plan as written ,documented as a scribe. Based on total visit time, I have performed more than 50% of the visit. Any additional findings or plans will be noted. Objective - Vital Signs Vital signs: Vital Signs Temp 98.2 F 01/03/23 07:59 Pulse 56 L 01/03/23 07:59 Resp 16 01/03/23 07:59 BP 186/80 01/03/23 07:59 Pulse Ox 98 01/03/23 07:59 FiO2 Intake & Output 01/02/23 01/03/23 01/03/23 18:59 06:59 18:59 Intake Total 250 Output Total 400 Balance -400 250 Weight 38.555 kg Intake: IV 250 Output: Urine 400 Other: Voiding Method External Catheter External Catheter - Labs CBC & Chem 7: 12/31/22 06:26 12/31/22 14:55
--- NOTE | 2023-01-03 16:08 | FL ---
Single contrast esophagram EXAMINATION TYPE: FL esophagus cervic/pharynx DATE OF EXAM: 01/03/2023 4:01 PM COMPARISON: NONE CLINICAL HISTORY: Status post Billy fundoplication The patient ingested contrast without difficulty. Noted are changes of Billy fundoplication. Contra st is noted within the distal esophagus without contrast flowing into the stomach. Imaging was obtain ed from 3 to 4 minutes. There is no evidence for leak. Free air is noted within the abdomen. IMPRESSION: Post-surgical change of Billy fundoplication with complete obstruction noted. Follow-up study recommended.
[2023-01-03] MEDS: HYDROmorphone 0.5 MG/0.5 ML SYRINGE IVP PRN (16:30)
[2023-01-03] MEDS: HYDROCORTISONE SUCCINATE 100 MG/2 ML VIAL IV SCH ×2 (16:30→23:56)
[2023-01-03] MEDS ORDERED: HYDROmorphone 1 MG/ML 1 ML SYRINGE IVP PRN (19:01)
--- NOTE | 2023-01-03 19:01 | P.OP ---
Date of Procedure: 01/03/23 Description of Procedure: SURGEON: ART FLORES MD PREOPERATIVE DIAGNOSES: 1. Symptomatic paraesophageal diaphragmatic hiatal hernia, intrathoracic 2. Gastroesophageal reflux disease. 3. Hypertensive heart disease 4. Dysphagia 5. Hyperlipidemia 6. Rheumatoid arthritis 7. Presbyesophagus 8. Under weight, BMI 17.2 9. Hypothyroidism 10. Depressive disorder 11. Generalized anxiety disorder 12. Chronic pain syndrome 13. Esophageal dysmotility POSTOPERATIVE DIAGNOSES: 1. Paraesophageal midline diaphragmatic hernia, 10 x 4 cm, with incarceration and gastric volvulus, mesentery axial rotation 2. Gastroesophageal reflux disease. 3. Hypertensive heart disease 4. Dysphagia 5. Hyperlipidemia 6. Rheumatoid arthritis 7. Presbyesophagus 8. Under weight, BMI 17.2 9. Hypothyroidism 10. Depressive disorder 11. Generalized anxiety disorder 12. Chronic pain syndrome 13. Esophageal dysmotility OPERATION: 1. Robotic-assisted da Mike Xi laparoscopic reduction of gastric volvulus and repair of incarcerated paraesophageal hiatal hernia, 10 x 4 cm, with Carmichael Biopatch A 8 x 8 cm. 2. Intraoperative esophagogastroduodenoscopy ANESTHESIA: General with local anesthetic. ESTIMATED BLOOD LOSS: 5 mL SPECIMENS REMOVED: None COMPLICATIONS: None. Condition: stable Disposition: floor FINDINGS: 1. Midline incarcerated paraesophageal hiatal hernia 10 x 4 cm with mesentery axial gastric volvulus 2. Intraoperative upper endoscopy confirms complete closure of hiatal hernia from Hill grade 3 to Hill grade 1 3. Intraesophageal length over 2 cm 4. Intra-abdominal adhesions INDICATIONS: The patient is a 87-year-old female who presents with severe esophageal dysmotility, incarcerated paraesophageal hiatal hernia and chronic dysphagia. Preoperative workup and swallow, CT chest including upper endoscopy demonstrated intrathoracic hiatal hernia. Given the severity of symptoms including unintentional weight loss, urgent surgical intervention was described. Pulmonary including cardiac course assessment was obtained. Benefits and risks including bleeding, infection, recurrence, dysphagia, injury to the lung, need for further surgery was described at length. Informed consent was obtained. DESCRIPTION: The patient was brought into the operating room and placed in supine position. Preoperatively the patient had received heparin subcutaneously for DVT prophylaxis. After general induction, the abdomen was prepped and draped in standard sterile fashion. The patient had previously voided prior to coming to the operating room. Ioban draping was placed along the abdomen. A timeout protocol was confirmed with the surgical team, for which the patient's name, procedure to be performed including DVT prophylaxis with bilateral SCDs, and preoperative antibiotics were also confirmed. A robotic da Mike Xi system was prepped and primed. At 12 cm from the xiphoid to just below the umbilicus, proposed port sites were marked with indelible marker along the left axillary line, left mid-clavicular line with each ports were marked 10 cm from each other. A 5 mm 0 degrees laparoscopic trocar entry was performed along the left upper quadrant. The abdomen was insufflated to 15 mmHg pressure was tolerated well. Diagnostic laparoscopy demonstrated no injury to bowel, viscera, or mesentery. No injury had occurred to the small bowel or viscera. The liver was smooth consistent with two-week high-protein low-carb diet. Previous trochar sites from cholecystectomy were used. Next, one 8 mm robotic port was placed along the right upper abdomen. An 8-mm port was were placed along the right lateral lateral abdominal wall. The camera 8-mm port was maintained along the epigastrium. Another 12 mm port was placed along the left upper abdominal wall after exchanging the 5 mm port. Please note that the ports were placed at least 20 cm away from the target anatomy. Care was taken to check that each robotic arm were safely away from collision with the bed or the patient. At the epigastrium, a medium sized Viki liver retractor was placed under direct visualization with the Iron Optometry Professor placed under the right shoulder of the patient. All robotic arms were used. The patient was repositioned in reverse Trendelenburg position at 21-degrees after lowering the bed. The robot was docked above the right side of the patient. Using a grasper for arm 3, a grasper for arm 1, including vessel sealer for arm 2, the robotic system was docked and primed as described. Instruments were interchanged by the assistant press operator. I had sat at the console. If the stomach was intrathoracic with active gastric volvulus, mesentery axial rotation. The stomach was pulled into the abdominal cavity with immediate recoil. The gastrohepatic ligament was cleaved using a vessel sealer. Next, the phrenoesophageal ligament was mobilized and the distal esophagus was mobilized circumferentially. The left and right crura was identified. Circumferentially, the hernia sac was excised and brought into the peritoneal cavity. Moderate at 8 dissection into the mediastinum was performed to release the esophagus into the abdominal cavity. The paraesophageal hiatal hernia sac was also incised and divided from the esophagus. Care was taken to avoid any gastrotomy. The measured defect was consistent with 10 cm axial length and 4 cm in width. After dissection, the distal esophagus of 2+ cm was brought into the abdominal cavity. Once the hiatus and crura was dissected, 2-0 VLOC nonabsorbable suture was placed to reapproximate the diaphragmatic hiatus posteriorly. To buttress the repair, a Carmichael Biopatch A was prepared along the back table and cut in half of a garcia-hole fashion as to reinforce the repair as an underlay. The mesh was placed along the crural repair and tagged using horizontal mattress sutures using 2-0 VLOC. I went to the head of the bed to perform intraoperative esophagogastroduodenoscopy. An Olympus gastroscope was passed through posterior oropharynx. Retroflexion of the scope confirmed a Hill grade 1 lower esophageal valve. The stomach was distended to confirm complete reduction of the stomach into the abdominal cavity. The esophagus was moderately distorted where placement of bougie was deferred for risk of esophageal perforation. The stomach had been desufflated. No evidence of leaks were found of the esophagus or stomach. The GI tract with desufflated This concluded the endoscopic portion of the case. The robot was undocked from the patient. I re-scrubbed into the case. All instruments and pneumoperitoneum and specimens were evacuated from the abdominal cavity. Incisions were reapproximated using 4-0 Monocryl in an interrupted subcuticular fashion. Liquid glue was applied to the skin. Local anesthetic was infiltrated in all wounds for postop analgesia. At the end of the procedure, needle, sponge, and instrument count was verified correct by the surgical orderly. The patient had tolerated the procedure well and was taken to the postanesthesia unit in stable condition.
[2023-01-03] MEDS: METOCLOPRAMIDE 5 MG/ML 2 ML VIAL IVP SCH (23:57)
[2023-01-03] MEDS: ONDANSETRON 4 MG/2 ML VIAL IVP SCH (23:57)
[2023-01-04] MEDS: HYDROmorphone 0.5 MG/0.5 ML SYRINGE IVP PRN ×3 (00:12→18:49)
[2023-01-04] MEDS: SODIUM CHLORIDE 0.9% 1,000 ML IV SCH ×2 (00:24→16:23)
[2023-01-04] MEDS: METOCLOPRAMIDE 5 MG/ML 2 ML VIAL IVP SCH ×4 (05:31→23:21)
[2023-01-04] MEDS: ONDANSETRON 4 MG/2 ML VIAL IVP SCH ×4 (05:31→23:20)
[2023-01-04 07:07] LABS: Basophils % (A) 0 %; Eosinophils % (A) 0 %; HCT 35.4 % (34.0-46.0); HGB 11.6 gm/dL (11.4-16.0); Lymphocytes # (A) 0.8 k/uL (1.0-4.8); Lymphocytes % (A) 8 %; MCH 29.7 pg (25.0-35.0); MCHC 32.7 g/dL (31.0-37.0); MCV 90.9 fL (80.0-100.0); Monocytes # (A) 0.4 k/uL (0-1.0); Monocytes % (A) 5 %; Neutrophils # (A) 7.7 k/uL (1.3-7.7); Neutrophils % (A) 86 %; Platelet Count 168 k/uL (150-450); RBC 3.89 m/uL (3.80-5.40); RDW 15.6 % (11.5-15.5); WBC 8.9 k/uL (3.8-10.6)
[2023-01-04 07:59] LABS: African American GFR (CKD) >90 (>60 ml/min/1.73 sqM); Anion Gap 10 mmol/L; Blood Urea Nitrogen 16 mg/dL (7-17); Calcium 8.6 mg/dL (8.4-10.2); Carbon Dioxide 20 mmol/L (22-30); Chloride 109 mmol/L (98-107); Glucose 111 mg/dL (74-99); Non-African American GFR(CKD) 81 (>60 ml/min/1.73 sqM); Potassium 4.2 mmol/L (3.5-5.1); Sodium 139 mmol/L (137-145)
[2023-01-04] MEDS: lisinopriL 10 MG TAB PO SCH (08:35)
[2023-01-04] MEDS: atenoloL 25 MG TAB PO SCH (08:35)
[2023-01-04] MEDS: ATORVASTATIN 40 MG TAB PO SCH (08:35)
[2023-01-04] MEDS: HEPARIN SODIUM,PORCINE 5,000 UNIT/ML 1 ML VIAL SQ SCH ×2 (08:35→20:08)
[2023-01-04] MEDS: PANTOPRAZOLE 40 MG/10 ML VIAL IVP SCH (08:36)
[2023-01-04] MEDS: HYDROCORTISONE SUCCINATE 100 MG/2 ML VIAL IV SCH ×3 (08:37→23:21)
[2023-01-04] MEDS: FLUTICASONE 50MCG/SPRAY NASAL 16GM EA NOSTRIL SCH (08:46)
--- NOTE | 2023-01-04 12:04 | P.PN ---
Subjective HISTORY OF PRESENT ILLNESS: This is a 87-year-old female with a past medical history significant for hypertension and hyperlipidemia. Patient follows in the office with Dr. Collins. We have been asked to see the patient in consultation for cardiac risk assessment. The patient initially presented to the hospital with weight loss and dysphagia. Patient underwent EGD yesterday revealing mid to distal esophageal stricture and intrathoracic paraesophageal diaphragmatic hiatal hernia. She is an actively scheduled for surgical repair on with Dr. Walker. Patient examined this morning. She is sitting up in the chair. Patient denies chest pain or pressure. She denies shortness of breath. She reports nausea but no vomiting. Vital signs are stable. * EKG reveals sinus mechanism with right bundle branch block. No signs of acute ischemia. * Laboratory data: WBC 6.27. Hemoglobin 10.5. Platelet count 173. Sodium 141. Potassium 3.9. BUN 9. Creatinine 0.69. * Current home cardiac medications include rosuvastatin 20 mg daily, lisinopril 10 mg daily, atenolol 25 mg daily * Most recent echocardiogram obtained in the office in October 2021 revealed ejection fraction 55-60%, mild to moderate aortic regurgitation, mild mitral regurgitation, and mild tricuspid regurgitation * Patient underwent Lexiscan stress test in June 2021 which was negative for ischemia 01/04/2023 Patient is status post robotic-assisted laparoscopic reduction of gastric volvulus and a pair of incarcerated paraesophageal hiatal hernia. Postop day #1. Patient examined at the bedside. Patient denies chest pain or pressure. She denies shortness of breath. Vital signs are stable. Echocardiogram completed revealing ejection fraction 55-60%, mild pulmonary hypertension, mild mitral aortic and tricuspid regurgitation. PHYSICAL EXAM: VITAL SIGNS: Reviewed. GENERAL: Well-developed in no acute distress. HEENT: Head is normocephalic. Pupils are equal, round. Sclerae anicteric. Mucous membranes of the mouth are moist. Neck supple. No JVD or thyromegaly LUNGS: Respirations even and unlabored. Lungs essentially clear to auscultation bilaterally. HEART: Regular rate and rhythm. S1 and S2 heard. Systolic murmur noted. ABDOMEN: Soft. Nondistended. Nontender. EXTREMITIES: Normal range of motion. No clubbing or cyanosis. Peripheral pulses intact. No lower extremity edema NEUROLOGIC: Awake and alert. Oriented x 3. ASSESSMENT: Dysphagia Nausea Mid to distal esophageal stricture Intrathoracic paraesophageal diaphragmatic hiatal hernia Hypertension Hyperlipidemia PLAN: Continue current cardiac medications Patient is currently stable from a cardiac perspective with no further inpatient recommendations We will sign off. Please reconsult if needed. Patient to follow-up post discharge with Dr. Collins Nurse practitioner note has been reviewed by physician. Signing provider agrees with the documented findings, assessment, and plan of care. Objective - Vital Signs Vital signs: Vital Signs Temp 97.8 F 01/04/23 07:23 Pulse 64 01/04/23 07:23 Resp 18 01/04/23 09:47 BP 149/68 01/04/23 07:23 Pulse Ox 97 01/04/23 08:31 FiO2 Intake & Output 01/03/23 01/04/23 01/04/23 18:59 06:59 18:59 Intake Total 950 Output Total 705 Balance 245 Intake: IV 950 Output: Urine 700 Estimated Blood Loss 5 Other: Voiding Method External Catheter External Catheter External Catheter - Labs CBC & Chem 7: 01/04/23 06:20 01/04/23 06:20 Labs: Abnormal Lab Results - Last 24 Hours (Table) 01/04/23 01/04/23 Range/Units 06:20 06:20 RDW 15.6 H (11.5-15.5) % Lymphocytes # 0.8 L (1.0-4.8) k/uL Chloride 109 H (98-107) mmol/L Carbon Dioxide 20 L (22-30) mmol/L Glucose 111 H (74-99) mg/dL
--- NOTE | 2023-01-04 12:54 | P.PN ---
Subjective Progress Note Date: 01/04/23 This is an 87-year-old female patient was being considered for surgical repair of paraesophageal hiatal hernia. The patient has been having weight loss and further investigation for weight loss and dysphagia yielded that the patient had mid to distal esophageal stricture and the patient underwent a balloon dilatation. She also has intrathoracic paraesophageal hiatal hernia along with acid reflux and erosive esophagitis and chronic duodenitis and gastritis. I was asked to evaluate the pulmonary status. The patient is currently on room air oxygen. No difficulties with aspiration or any pneumonias. The patient has quit smoking more than 30 years ago. The patient is doing well. She has history of rheumatoid arthritis and the patient is currently on a combination of xeljanz/ prednisone. She has chronic deformities in her hands related to rheumatoid arthritis. No history of any interstitial lung disease related to rheumatoid arthritis. CAT scan of the chest and abdomen was done and the patient has no acute pulmonary abnormalities. No recent lymphadenopathy. No evidence of interstitial lung disease. Mild emphysematous changes. The patient has some limitation in her functionality. She walks around without help of a walker. She is unable to climb a flight of stairs. She is able to perform activities of day-to-day life and she was living independently at home. She has hypertension, hyperlipidemia, rheumatoid arthritis, and degenerative arthritis. On today's evaluation of 01/02/2023, the patient's condition is stable. The patient is awaiting her surgery for tomorrow. She remains on normal saline at 75 mL an hour. She is taking. He diet. No aspiration. No signs of pneumonia. On 01/03/2023, the patient will be taken to the operating room. We'll monitor this patient along with the surgical team and will make recommendations should there be any need regarding postoperative pulmonary care. As stated, the patient has been on 5 mg of prednisone and I'm going to stop this and give the patient hydrocortisone 100 mg every 8 hours. 01/04 2023, I'm seeing the patient for a follow-up. The patient is doing well. The patient is currently postop day #1. Surgical wound is dry clean and intact. She is on 2 L of Oxymizer nasal cannula. She is using the incentive spirometer. No respiratory difficulties. She is going to undergo an esophagram today. She remains on hydrocortisone, stress dose. She remains also on normal saline at the rate of 75 mL an hour. The hemoglobin is at 11.6, white cell count of 8.9, platelet count is at 168, BUN is at 60 with a creatinine of 0.4 and a sodium level is at 139 and the potassium levels at 4.2. Objective - Vital Signs Vital signs: Vital Signs Temp 97.8 F 01/04/23 07:23 Pulse 64 01/04/23 07:23 Resp 18 01/04/23 09:47 BP 149/68 01/04/23 07:23 Pulse Ox 97 01/04/23 08:31 FiO2 Intake & Output 01/03/23 01/04/23 01/04/23 18:59 06:59 18:59 Intake Total 950 Output Total 705 Balance 245 Intake: IV 950 Output: Urine 700 Estimated Blood Loss 5 Other: Voiding Method External Catheter External Catheter External Catheter - Exam GENERAL: Well-developed in no acute distress. The patient has been on 2 L of O2 nasal cannula. No signs of any respiratory distress at this point in time. HEENT: No sclera icterus. Extraocular movements grossly intact. Moist buccal mucosa. Head is atraumatic, normocephalic. Hears conversational speech. No nasal drainage. NECK: Supple without lymphadenopathy. CHEST: Non-labored respirations and equal bilateral excursions. Thoracic kyphosis present. CARDIOVASCULAR: Palpable 2+ radial pulses. ABDOMEN: Soft. Nondistended. Nontender. The abdominal wounds are all dry and the patient has adequate bowel sounds MUSCULOSKELETAL: No clubbing or cyanosis. NEUROLOGIC: No focal or lateralizing signs. Cranial nerves II through XII grossly intact. PSYCH: Appropriate affect. Alert and oriented to person, place and time. SKIN: Well perfused. Good skin turgor. - Labs CBC & Chem 7: 01/04/23 06:20 01/04/23 06:20 Labs: Abnormal Lab Results - Last 24 Hours (Table) 01/04/23 01/04/23 Range/Units 06:20 06:20 RDW 15.6 H (11.5-15.5) % Lymphocytes # 0.8 L (1.0-4.8) k/uL Chloride 109 H (98-107) mmol/L Carbon Dioxide 20 L (22-30) mmol/L Glucose 111 H (74-99) mg/dL Assessment and Plan Plan: Symptomatic intrathoracic paraesophageal hiatal hernia with secondary chronic reflux and erosive gastritis/duodenitis/gastritis. The patient is currently postop day #1. The patient underwent a robotic-assisted reduction of gastric volvulus and repair of an incarcerated paraesophageal hernia. Esophageal stricture involving the mid and distal esophagus postdilatation Weight loss secondary to above COPD, mild, inactive and stable Rheumatoid arthritis maintain on a combination of xaljenz and prednisone on outpatient basis and the patient has obvious joint deformities involving the hands Thoracic kyphosis Difficulty with gait or mobility secondary to above and the patient walks around with help of a walker. Functionality is been affected due to age and RA and OA Hypertension Hyperlipidemia History of thyroid disease and the patient is currently on thyroid replacement Plan Continue using the incentive spirometer Esophagogram to be done Keep hydrocortisone 100 mg every 8 hours and transition the patient to oral prednisone as of tomorrow Advance diet as tolerated The patient's COPD is mild and currently inactive and stable Continue using incentive spirometer Home medications have been resumed PPI Thyroid hormone replacement We'll continue to follow
--- NOTE | 2023-01-04 13:47 | XR ---
EXAMINATION TYPE: XR chest 2V DATE OF EXAM: 01/04/2023 COMPARISON: 01/01/2023 HISTORY: 87-year-old female follow-up COPD TECHNIQUE: AP and lateral views FINDINGS: Heart normal size. Aorta within normal limits. Mild free air below the hemidiaphragms on both sides. Correlate for any signs/symptoms of acute abdomen/bowel perforation or any recent surgery. Small bila teral pleural effusions. IMPRESSION: 1. Mild free air below both hemidiaphragms. This is similar to slightly diminished from the free air seen on 01/03/2023 esophagram. This may be on a postoperative basis and should be correlated clinicall y. 2. Small bilateral pleural effusions with adjacent atelectasis are new.
--- NOTE | 2023-01-04 14:43 | P.PN ---
Subjective Progress Note Date: 01/04/23 CHIEF COMPLAINT: Dysphagia and weight loss HISTORY OF PRESENT ILLNESS: Patient is postop day #1 status post robotic- assisted laparoscopic reduction of gastric volvulus and repair of incarcerated paraesophageal hiatal hernia with Biopatch. Upper GI completed yesterday shows postsurgical changes of Pily fundoplication with complete obstruction noted. Patient was made nothing by mouth except for ice chips and popsicles. She does report initially yesterday she was having some difficulty with swallowing but that has improved today. She's had no nausea or vomiting. She reports her pain is controlled. Afebrile. WBC 8.9 Hgb 11.6 platelets 168 sodium 139 potassium 4.2 creatinine 0.64 Chest x-ray mild free air below both hemidiaphragms. This is similar to slightly diminished from the free air on 01/03/2023 esophagram. This is postoperative finding. Small bilateral pleural effusions with atelectasis. X- ray results reviewed with Dr. Barriga. Contrast has passed through the esophagus. PHYSICAL EXAM: VITAL SIGNS: Reviewed GENERAL: Well-developed in no acute distress. HEENT: No sclera icterus. Extraocular movements grossly intact. Moist buccal mucosa. Head is atraumatic, normocephalic. Hears conversational speech. No nasal drainage. NECK: Supple without lymphadenopathy. CHEST: Non-labored respirations and equal bilateral excursions. CARDIOVASCULAR: Palpable 2+ radial pulses. ABDOMEN: Soft. Nondistended. Nontender. MUSCULOSKELETAL: No clubbing or cyanosis. NEUROLOGIC: No focal or lateralizing signs. Cranial nerves II through XII grossly intact. PSYCH: Appropriate affect. Alert and oriented to person, place and time. SKIN: Well perfused. Good skin turgor. ASSESSMENT: 1. Paraesophageal midline diaphragmatic hernia, 10 x 4 cm, with incarceration and gastric volvulus, mesentery axial rotation 2. Gastroesophageal reflux disease. 3. Hypertensive heart disease 4. Dysphagia 5. Hyperlipidemia 6. Rheumatoid arthritis 7. Presbyesophagus 8. Under weight, BMI 17.2 9. Hypothyroidism 10. Depressive disorder 11. Generalized anxiety disorder 12. Chronic pain syndrome 13. Esophageal dysmotility PLAN: -Patient is scheduled for EGD on 01/07/2023 for dilation and possible PEG tube placement -Start Pily clear liquid diet -Anticipating the patient will need PEG tube placement to help meet her caloric needs -Patient can shower -Add incentive spirometer -Encouraged patient to increase activity level Physician Rn Research note has been reviewed by physician. Signing provider agrees with the documented findings, assessment, and plan of care. Objective - Vital Signs Vital signs: Vital Signs Temp 97.8 F 01/04/23 07:23 Pulse 64 01/04/23 07:23 Resp 18 01/04/23 09:47 BP 149/68 01/04/23 07:23 Pulse Ox 97 01/04/23 08:31 FiO2 Intake & Output 01/03/23 01/04/23 01/04/23 18:59 06:59 18:59 Intake Total 950 Output Total 705 800 Balance 245 -800 Intake: IV 950 Output: Urine 700 800 Estimated Blood Loss 5 Other: Voiding Method External Catheter External Catheter External Catheter - Labs CBC & Chem 7: 01/04/23 06:20 01/04/23 06:20 Labs: Abnormal Lab Results - Last 24 Hours (Table) 01/04/23 01/04/23 Range/Units 06:20 06:20 RDW 15.6 H (11.5-15.5) % Lymphocytes # 0.8 L (1.0-4.8) k/uL Chloride 109 H (98-107) mmol/L Carbon Dioxide 20 L (22-30) mmol/L Glucose 111 H (74-99) mg/dL
[2023-01-04] MEDS: TEMAZEPAM 15 MG CAP PO PRN (23:23)
[2023-01-05] MEDS: SODIUM CHLORIDE 0.9% 1,000 ML IV SCH ×2 (04:22→13:12)
[2023-01-05] MEDS: METOCLOPRAMIDE 5 MG/ML 2 ML VIAL IVP SCH ×4 (06:17→23:46)
[2023-01-05] MEDS: ONDANSETRON 4 MG/2 ML VIAL IVP SCH ×4 (06:17→23:46)
--- NOTE | 2023-01-05 06:39 | P.PN ---
Subjective Progress Note Date: 01/04/23 This is a pleasant 87-year-old female who was recently admitted with severe weakness and severe protein calorie malnutrition was scheduled to have PEG tube placed today but patient is not a candidate as there is complete 100%. Esophageal intrathoracic hiatal hernia and to high risk for surgical interve ntion. Patient is plan for EGD today which is pending.. General surgery Dr. Walker following and patient is currently nothing by mouth. Patient reports attempting pills and oral intake although unable to tolerate. Patient has been spitting them back up. Patient is afebrile denies chest pain or shortness of breath. Patient be evaluated by physical therapy. A.m. labs pending. Will follow up. Await surgical report. 01/01/2023 Patient is seen in follow-up this morning scheduled to undergo barium swallow study this patient is status post EGD with balloon dilatation with Dr. Walker yesterday. Pulmonary and cardiology being consulted as patient was noted to have paraesophageal hernia and being considered for repair. Patient has been having significant dysphagia with inability to tolerate oral intake. Biopsies were also obtained during the EGD which are pending. Patient is afebrile denies chest pain or shortness of breath. Patient started on pured diet and reports to tolerating. Recommend aspiration precautions and head of the bed elevated 30-45 at all times. 01/02/2023 Patient is seen and evaluated today sitting up in the chair reports to doing relatively well. Patient did have one episode of frothy vomit this morning after breakfast. Patient is maintained on pured diet and will be nothing by mouth at midnight. Patient is scheduled for paraesophageal hernia repair with Dr. King on 01/03/2023. Patient has been seen and evaluated by cardiology along with pulmonary with no absolute contraindication to surgery and has been cleared for surgical intervention tomorrow. Patient has discussed the risks versus the benefits and is willing to proceed. Patient reports she was slightly anxious at first about having a surgery although feels it is necessary and is agreeable with this. Patient ambulates independently with a 4 wheeled walker and has assistive devices in the home and has home care. Patient's 4 wheeled walker is broken has no breaks and would benefit from a new 4 wheeled walker to assist patient with everyday walking tasks and ADLs. Patient is afebrile with no reported chest pain or shortness of breath. 01/03/2023 Patient is currently nothing by mouth and going down to OR for paraesophageal hernia repair with Dr. King today. Will await surgical report. Patient is currently afebrile with no reported chest pain or shortness of breath. Blood pressure mildly elevated this morning and will receive home blood pressure medications prior to surgery. Patient has received cardiology and pulmonary clearance for surgical intervention today. 01/04/2023 Patient seen and evaluated in follow-up today status post paraesophageal hernia repair. Patient had a swallow study showing obstruction and is scheduled for chest x-ray today. Patient reports to no nausea or vomiting today and reports feeling well. There is discussion of possible PEG tube placement and patient will undergo repeat EGD with dilatation on 01/07/2023. Patient is currently afebrile denies chest pain or shortness of breath. Review of systems: Constitutional: No reports of fatigue, fever, or chills Cardiovascular: No reports of chest pain or palpitations Respiratory: No reports of shortness of breath or cough GI: No reports of nausea, no reports of vomiting : No reports of dysuria or retention Neurovascular: reports of generalized weakness All medications have been reviewed PHYSICAL EXAMINATION: GENERAL: The patient is alert and oriented x4, Well developed, thin built, elderly appearing. HEENT: Pupils are round and equally reacting to light. EOMI. no scleral icterus. No conjunctival pallor. Normocephalic, atraumatic. No pharyngeal erythema. No thyromegaly. CARDIOVASCULAR: S1 and S2 muffled PULMONARY: diminished breath sounds bilaterally with no wheezing or rhonchi noted. ABDOMEN: soft. Nontender on exam. non-distended, normoactive bowel sounds. No palpable organomegaly. MUSCULOSKELETAL: No joint swelling or deformity. EXTREMITIES: No cyanosis, clubbing, or pedal edema. NEUROLOGICAL: Gross neurological examination did not reveal any focal deficits. Diffuse weakness SKIN: No rashes. 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 stricture Intrathoracic paraesophageal diaphragmatic hiatal hernia is noted on EGD with erosive esophagitis, status post robotic-assisted laparoscopic reduction of gastric volvulus and repair of incarcerated paraesophageal hiatal hernia Hypertension history Hyperlipidemia history GERD History of osteoarthritis and rheumatoid arthritis History of anxiety/depression Gait dysfunction Former smoker GI prophylaxis DVT prophylaxis No code Plan: Patient is status post robotic-assisted laparoscopic reduction of gastric volvulus and repair of incarcerated paraesophageal hiatal hernia Patient had swallow study with concerns for complete obstruction and follow-up chest x-ray shows passing of the contrast. Patient is nothing by mouth for now with just ice chips and Pily diet per surgery recommendations and is scheduled for repeat EGD and possible PEG tube placement on 01/07/2023 Encouraged increased activity as tolerated. Patient has received a new walker as hers was broken with no breaks Prognosis is guarded The impression and plan of care has been dictated by Brea Barclay, nurse practitioner as directed. Dr. Parish MD I have performed a history and examination and MDM of this patient, discussed the same with the dictator, and agree with the dictator's assessment and plan as written ,documented as a scribe. Based on total visit time, I have performed more than 50% of the visit. Any additional findings or plans will be noted. Objective - Vital Signs Vital signs: Vital Signs Temp 97.8 F 01/04/23 07:23 Pulse 64 01/04/23 07:23 Resp 18 01/04/23 07:23 BP 149/68 01/04/23 07:23 Pulse Ox 97 01/04/23 08:31 FiO2 Intake & Output 01/03/23 01/04/23 01/04/23 18:59 06:59 18:59 Intake Total 950 Output Total 705 Balance 245 Intake: IV 950 Output: Urine 700 Estimated Blood Loss 5 Other: Voiding Method External Catheter External Catheter External Catheter - Labs CBC & Chem 7: 01/04/23 06:20 01/04/23 06:20 Labs: Abnormal Lab Results - Last 24 Hours (Table) 01/04/23 01/04/23 Range/Units 06:20 06:20 RDW 15.6 H (11.5-15.5) % Lymphocytes # 0.8 L (1.0-4.8) k/uL Chloride 109 H (98-107) mmol/L Carbon Dioxide 20 L (22-30) mmol/L Glucose 111 H (74-99) mg/dL
[2023-01-05] MEDS: PANTOPRAZOLE 40 MG/10 ML VIAL IVP SCH (09:22)
[2023-01-05] MEDS: lisinopriL 10 MG TAB PO SCH (09:22)
[2023-01-05] MEDS: atenoloL 25 MG TAB PO SCH (09:22)
[2023-01-05] MEDS: HEPARIN SODIUM,PORCINE 5,000 UNIT/ML 1 ML VIAL SQ SCH ×2 (09:22→21:00)
[2023-01-05] MEDS: ATORVASTATIN 40 MG TAB PO SCH (09:22)
[2023-01-05] MEDS: FLUTICASONE 50MCG/SPRAY NASAL 16GM EA NOSTRIL SCH (09:23)
[2023-01-05] MEDS: HYDROCORTISONE SUCCINATE 100 MG/2 ML VIAL IV SCH ×3 (09:24→23:46)
--- NOTE | 2023-01-05 12:01 | P.PN ---
Progress Note - Text Progress Note Date: 01/05/23 Patient states that she is throwing up. On exam vital signs appear stable. Abdomen soft. Status post laparoscopic repair of hiatal hernia. Patient is obstruction at her GE junction. Patient will K receive supportive care. She'll be reevaluated by Dr. Barriga on Saturday.
--- NOTE | 2023-01-05 12:35 | P.PN ---
Subjective Progress Note Date: 01/05/23 This is an 87-year-old female patient was being considered for surgical repair of paraesophageal hiatal hernia. The patient has been having weight loss and further investigation for weight loss and dysphagia yielded that the patient had mid to distal esophageal stricture and the patient underwent a balloon dilatation. She also has intrathoracic paraesophageal hiatal hernia along with acid reflux and erosive esophagitis and chronic duodenitis and gastritis. I was asked to evaluate the pulmonary status. The patient is currently on room air oxygen. No difficulties with aspiration or any pneumonias. The patient has quit smoking more than 30 years ago. The patient is doing well. She has history of rheumatoid arthritis and the patient is currently on a combination of xeljanz/ prednisone. She has chronic deformities in her hands related to rheumatoid arthritis. No history of any interstitial lung disease related to rheumatoid arthritis. CAT scan of the chest and abdomen was done and the patient has no acute pulmonary abnormalities. No recent lymphadenopathy. No evidence of interstitial lung disease. Mild emphysematous changes. The patient has some limitation in her functionality. She walks around without help of a walker. She is unable to climb a flight of stairs. She is able to perform activities of day-to-day life and she was living independently at home. She has hypertension, hyperlipidemia, rheumatoid arthritis, and degenerative arthritis. On today's evaluation of 01/02/2023, the patient's condition is stable. The patient is awaiting her surgery for tomorrow. She remains on normal saline at 75 mL an hour. She is taking. He diet. No aspiration. No signs of pneumonia. On 01/03/2023, the patient will be taken to the operating room. We'll monitor this patient along with the surgical team and will make recommendations should there be any need regarding postoperative pulmonary care. As stated, the patient has been on 5 mg of prednisone and I'm going to stop this and give the patient hydrocortisone 100 mg every 8 hours. 01/04 2023, I'm seeing the patient for a follow-up. The patient is doing well. The patient is currently postop day #1. Surgical wound is dry clean and intact. She is on 2 L of Oxymizer nasal cannula. She is using the incentive spirometer. No respiratory difficulties. She is going to undergo an esophagram today. She remains on hydrocortisone, stress dose. She remains also on normal saline at the rate of 75 mL an hour. The hemoglobin is at 11.6, white cell count of 8.9, platelet count is at 168, BUN is at 60 with a creatinine of 0.4 and a sodium level is at 139 and the potassium levels at 4.2. On 01/05/2023, the patient is nothing by mouth. The patient is postop day #2. Postsurgical esophagram was done and the patient was found to have complete obstruction following her surgery as the patient is going into the stomach pulling in the distal esophagus. As such, the patient was kept nothing by mouth. The plan is to undergo a PEG tube insertion by general surgery. The patient has no other issues for now. Resting comfortably in bed on 2 L with a pulse ox of 97%. Objective - Vital Signs Vital signs: Vital Signs Temp 97.7 F 01/05/23 07:05 Pulse 61 01/05/23 07:05 Resp 15 01/05/23 07:05 BP 137/62 01/05/23 07:05 Pulse Ox 97 01/05/23 08:37 FiO2 Intake & Output 01/04/23 01/05/23 01/05/23 18:59 06:59 18:59 Output Total 1150 Balance -1150 Weight 38.555 kg Output: Urine 1150 Other: Voiding Method External Catheter External Catheter - Exam GENERAL: Well-developed in no acute distress. The patient has been on 2 L of O2 nasal cannula. No signs of any respiratory distress at this point in time. HEENT: No sclera icterus. Extraocular movements grossly intact. Moist buccal mucosa. Head is atraumatic, normocephalic. Hears conversational speech. No nasal drainage. NECK: Supple without lymphadenopathy. CHEST: Non-labored respirations and equal bilateral excursions. Thoracic kyphosis present. CARDIOVASCULAR: Palpable 2+ radial pulses. ABDOMEN: Soft. Nondistended. Nontender. The abdominal wounds are all dry and the patient has adequate bowel sounds MUSCULOSKELETAL: No clubbing or cyanosis. NEUROLOGIC: No focal or lateralizing signs. Cranial nerves II through XII grossly intact. PSYCH: Appropriate affect. Alert and oriented to person, place and time. SKIN: Well perfused. Good skin turgor. - Labs CBC & Chem 7: 01/04/23 06:20 01/04/23 06:20 Assessment and Plan Plan: Symptomatic intrathoracic paraesophageal hiatal hernia with secondary chronic reflux and erosive gastritis/duodenitis/gastritis. The patient is currently postop day #2. The patient underwent a robotic-assisted reduction of gastric volvulus and repair of an incarcerated paraesophageal hernia. Obstruction of distal esophagus post surgery and the patient is currently nothing by mouth Esophageal stricture involving the mid and distal esophagus postdilatation Weight loss secondary to above COPD, mild, inactive and stable Rheumatoid arthritis maintain on a combination of xaljenz and prednisone on outpatient basis and the patient has obvious joint deformities involving the hands Thoracic kyphosis Difficulty with gait or mobility secondary to above and the patient walks around with help of a walker. Functionality is been affected due to age and RA and OA Hypertension Hyperlipidemia History of thyroid disease and the patient is currently on thyroid replacement Plan Continue using the incentive spirometer Esophagogram results were noted Keep the patient nothing by mouth Incisions of PEG tube Continue hydrocortisone 100 mg every 8 hours Advance diet as tolerated The patient's COPD is mild and currently inactive and stable Continue using incentive spirometer Home medications have been resumed PPI Thyroid hormone replacement We'll continue to follow
[2023-01-05] MEDS: HYDROmorphone 0.5 MG/0.5 ML SYRINGE IVP PRN (15:56)
[2023-01-05] MEDS: TEMAZEPAM 15 MG CAP PO PRN (21:01)
[2023-01-06] MEDS: ONDANSETRON 4 MG/2 ML VIAL IVP SCH ×4 (05:29→22:33)
[2023-01-06] MEDS: METOCLOPRAMIDE 5 MG/ML 2 ML VIAL IVP SCH ×4 (05:29→22:33)
[2023-01-06] MEDS: SODIUM CHLORIDE 0.9% 1,000 ML IV SCH ×2 (05:30→22:26)
[2023-01-06] MEDS: HEPARIN SODIUM,PORCINE 5,000 UNIT/ML 1 ML VIAL SQ SCH ×2 (08:08→22:32)
[2023-01-06] MEDS: lisinopriL 10 MG TAB PO SCH (08:08)
[2023-01-06] MEDS: atenoloL 25 MG TAB PO SCH (08:08)
[2023-01-06] MEDS: ATORVASTATIN 40 MG TAB PO SCH (08:08)
[2023-01-06] MEDS: FLUTICASONE 50MCG/SPRAY NASAL 16GM EA NOSTRIL SCH (08:09)
[2023-01-06] MEDS: HYDROCORTISONE SUCCINATE 100 MG/2 ML VIAL IV SCH ×3 (08:09→22:32)
[2023-01-06] MEDS: PANTOPRAZOLE 40 MG/10 ML VIAL IVP SCH (08:09)
--- NOTE | 2023-01-06 09:35 | P.PN ---
Progress Note - Text Progress Note Date: 01/06/23 Patient is resting in bed. She has some complaints of nausea. She has drank some clear liquids this morning. On exam vital signs are stable. Abdomen soft nontender Status post repair of hiatal hernia. Patient's has had minimal oral intake. She'll be closely observed.
[2023-01-06 10:35] LABS: BUN/Creat Ratio 17.57 Ratio (12.00-20.00); Blood Urea Nitrogen 12.3 mg/dL (9.0-27.0); Calcium 7.7 mg/dL (8.7-10.3); Carbon Dioxide 22.5 mmol/L (21.6-31.8); Chloride 112 mmol/L (96-109); Glucose 140 mg/dL (70-110); Sodium 141 mmol/L (135-145)
[2023-01-06] MEDS: HYDROmorphone 0.5 MG/0.5 ML SYRINGE IVP PRN ×2 (11:13→18:55)
--- NOTE | 2023-01-06 12:17 | P.PN ---
Subjective Progress Note Date: 01/06/23 This is an 87-year-old female patient was being considered for surgical repair of paraesophageal hiatal hernia. The patient has been having weight loss and further investigation for weight loss and dysphagia yielded that the patient had mid to distal esophageal stricture and the patient underwent a balloon dilatation. She also has intrathoracic paraesophageal hiatal hernia along with acid reflux and erosive esophagitis and chronic duodenitis and gastritis. I was asked to evaluate the pulmonary status. The patient is currently on room air oxygen. No difficulties with aspiration or any pneumonias. The patient has quit smoking more than 30 years ago. The patient is doing well. She has history of rheumatoid arthritis and the patient is currently on a combination of xeljanz/ prednisone. She has chronic deformities in her hands related to rheumatoid arthritis. No history of any interstitial lung disease related to rheumatoid arthritis. CAT scan of the chest and abdomen was done and the patient has no acute pulmonary abnormalities. No recent lymphadenopathy. No evidence of interstitial lung disease. Mild emphysematous changes. The patient has some limitation in her functionality. She walks around without help of a walker. She is unable to climb a flight of stairs. She is able to perform activities of day-to-day life and she was living independently at home. She has hypertension, hyperlipidemia, rheumatoid arthritis, and degenerative arthritis. On today's evaluation of 01/02/2023, the patient's condition is stable. The patient is awaiting her surgery for tomorrow. She remains on normal saline at 75 mL an hour. She is taking. He diet. No aspiration. No signs of pneumonia. On 01/03/2023, the patient will be taken to the operating room. We'll monitor this patient along with the surgical team and will make recommendations should there be any need regarding postoperative pulmonary care. As stated, the patient has been on 5 mg of prednisone and I'm going to stop this and give the patient hydrocortisone 100 mg every 8 hours. 01/04 2023, I'm seeing the patient for a follow-up. The patient is doing well. The patient is currently postop day #1. Surgical wound is dry clean and intact. She is on 2 L of Oxymizer nasal cannula. She is using the incentive spirometer. No respiratory difficulties. She is going to undergo an esophagram today. She remains on hydrocortisone, stress dose. She remains also on normal saline at the rate of 75 mL an hour. The hemoglobin is at 11.6, white cell count of 8.9, platelet count is at 168, BUN is at 60 with a creatinine of 0.4 and a sodium level is at 139 and the potassium levels at 4.2. On 01/05/2023, the patient is nothing by mouth. The patient is postop day #2. Postsurgical esophagram was done and the patient was found to have complete obstruction following her surgery as the patient is going into the stomach pulling in the distal esophagus. As such, the patient was kept nothing by mouth. The plan is to undergo a PEG tube insertion by general surgery. The patient has no other issues for now. Resting comfortably in bed on 2 L with a pulse ox of 97%. On 01/06/2023, the patient is postop day #3. The patient is awaiting PEG tube insertion tomorrow. She remains nothing by mouth. No respiratory difficulties. She is currently on room air. Sodium is at 141, BUN is at 12 with a creatinine of 0.7. Objective - Vital Signs Vital signs: Vital Signs Temp 98.1 F 01/06/23 07:46 Pulse 60 01/06/23 07:46 Resp 16 01/06/23 07:46 BP 159/69 01/06/23 07:46 Pulse Ox 98 01/06/23 07:46 FiO2 Intake & Output 01/05/23 01/06/23 01/06/23 18:59 06:59 18:59 Output Total 800 450 Balance -800 -450 Output: Urine 800 450 Other: Voiding Method External Catheter - Exam GENERAL: Well-developed in no acute distress. The patient has been on 2 L of O2 nasal cannula. No signs of any respiratory distress at this point in time. HEENT: No sclera icterus. Extraocular movements grossly intact. Moist buccal mucosa. Head is atraumatic, normocephalic. Hears conversational speech. No nasal drainage. NECK: Supple without lymphadenopathy. CHEST: Non-labored respirations and equal bilateral excursions. Thoracic kypho sis present. CARDIOVASCULAR: Palpable 2+ radial pulses. ABDOMEN: Soft. Nondistended. Nontender. The abdominal wounds are all dry and the patient has adequate bowel sounds MUSCULOSKELETAL: No clubbing or cyanosis. NEUROLOGIC: No focal or lateralizing signs. Cranial nerves II through XII grossly intact. PSYCH: Appropriate affect. Alert and oriented to person, place and time. SKIN: Well perfused. Good skin turgor. - Labs CBC & Chem 7: 01/04/23 06:20 01/06/23 04:55 Assessment and Plan Plan: Symptomatic intrathoracic paraesophageal hiatal hernia with secondary chronic reflux and erosive gastritis/duodenitis/gastritis. The patient is currently postop day # 3. The patient underwent a robotic-assisted reduction of gastric volvulus and repair of an incarcerated paraesophageal hernia. Obstruction of distal esophagus post surgery and the patient is currently nothing by mouth Esophageal stricture involving the mid and distal esophagus postdilatation Weight loss secondary to above COPD, mild, inactive and stable Rheumatoid arthritis maintain on a combination of xaljenz and prednisone on ou tpatient basis and the patient has obvious joint deformities involving the hands Thoracic kyphosis Difficulty with gait or mobility secondary to above and the patient walks around with help of a walker. Functionality is been affected due to age and RA and OA Hypertension Hyperlipidemia History of thyroid disease and the patient is currently on thyroid replacement Plan Continue using the incentive spirometer Esophagogram results were noted Keep the patient nothing by mouth Incisions of PEG tube and this will be done tomorrow Continue hydrocortisone 100 mg every 8 hours Advance diet as tolerated The patient's COPD is mild and currently inactive and stable Continue using incentive spirometer Home medications have been resumed PPI Thyroid hormone replacement We'll see as needed
[2023-01-06] MEDS: TEMAZEPAM 15 MG CAP PO PRN (22:32)
--- NOTE | 2023-01-07 00:46 | P.PN ---
Subjective Progress Note Date: 01/05/23 This is a pleasant 87-year-old female who was recently admitted with severe weakness and severe protein calorie malnutrition was scheduled to have PEG tube placed today but patient is not a candidate as there is complete 100%. Esophageal intrathoracic hiatal hernia and to high risk for surgical intervent ion. Patient is plan for EGD today which is pending.. General surgery Dr. Walker following and patient is currently nothing by mouth. Patient reports attempting pills and oral intake although unable to tolerate. Patient has been spitting them back up. Patient is afebrile denies chest pain or shortness of breath. Patient be evaluated by physical therapy. A.m. labs pending. Will follow up. Await surgical report. 01/01/2023 Patient is seen in follow-up this morning scheduled to undergo barium swallow study this patient is status post EGD with balloon dilatation with Dr. Walker yesterday. Pulmonary and cardiology being consulted as patient was noted to have paraesophageal hernia and being considered for repair. Patient has been having significant dysphagia with inability to tolerate oral intake. Biopsies were also obtained during the EGD which are pending. Patient is afebrile denies chest pain or shortness of breath. Patient started on pured diet and reports to tolerating. Recommend aspiration precautions and head of the bed elevated 30-45 at all times. 01/02/2023 Patient is seen and evaluated today sitting up in the chair reports to doing relatively well. Patient did have one episode of frothy vomit this morning after breakfast. Patient is maintained on pured diet and will be nothing by mouth at midnight. Patient is scheduled for paraesophageal hernia repair with Dr. King on 01/03/2023. Patient has been seen and evaluated by cardiology along with pulmonary with no absolute contraindication to surgery and has been cleared for surgical intervention tomorrow. Patient has discussed the risks versus the benefits and is willing to proceed. Patient reports she was slightly anxious at first about having a surgery although feels it is necessary and is agreeable with this. Patient ambulates independently with a 4 wheeled walker and has assistive devices in the home and has home care. Patient's 4 wheeled walker is broken has no breaks and would benefit from a new 4 wheeled walker to assist patient with everyday walking tasks and ADLs. Patient is afebrile with no reported chest pain or shortness of breath. 01/03/2023 Patient is currently nothing by mouth and going down to OR for paraesophageal hernia repair with Dr. King today. Will await surgical report. Patient is currently afebrile with no reported chest pain or shortness of breath. Blood pressure mildly elevated this morning and will receive home blood pressure m edications prior to surgery. Patient has received cardiology and pulmonary clearance for surgical intervention today. 01/04/2023 Patient seen and evaluated in follow-up today status post paraesophageal hernia repair. Patient had a swallow study showing obstruction and is scheduled for chest x-ray today. Patient reports to no nausea or vomiting today and reports feeling well. There is discussion of possible PEG tube placement and patient will undergo repeat EGD with dilatation on 01/07/2023. Patient is currently afebrile denies chest pain or shortness of breath. 01/05/2023 Patient is currently resting in the bed. Awake alert and oriented. On 2 L oxygen via nasal cannula. No complaints of chest pain or shortness of breath. Patient is status post robotic assisted reduction of gastric volvulus and repair of incarcerated paraesophageal hernia. POD 2 Esophagogram showed complete obstruction following the surgery as the patient was found to have stomach pulling in the distal esophagus. Patient is currently nothing by mouth and general surgery is planning for PEG tube placement likely on Saturday. Laboratory data showed sodium 141 potassium 4.0 chloride 112 bicarb is 22.5 BUN 12.3 and creatinine 0.7 calcium 7.7. Review of systems: Constitutional: No reports of fatigue, fever, or chills Cardiovascular: No reports of chest pain or palpitations Respiratory: No reports of shortness of breath or cough GI: No reports of nausea, no reports of vomiting : No reports of dysuria or retention Neurovascular: reports of generalized weakness All medications have been reviewed PHYSICAL EXAMINATION: GENERAL: The patient is alert and oriented x4, Well developed, thin built, elderly appearing. HEENT: Pupils are round and equally reacting to light. EOMI. no scleral icterus. No conjunctival pallor. Normocephalic, atraumatic. No pharyngeal erythema. No thyromegaly. CARDIOVASCULAR: S1 and S2 muffled PULMONARY: diminished breath sounds bilaterally with no wheezing or rhonchi noted. ABDOMEN: soft. Nontender on exam. non-distended, normoactive bowel sounds. No palpable organomegaly. MUSCULOSKELETAL: No joint swelling or deformity. EXTREMITIES: No cyanosis, clubbing, or pedal edema. NEUROLOGICAL: Gross neurological examination did not reveal any focal deficits. Diffuse weakness SKIN: No rashes. 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 stricture Intrathoracic paraesophageal diaphragmatic hiatal hernia is noted on EGD with erosive esophagitis, status post robotic-assisted laparoscopic reduction of gastric volvulus and repair of incarcerated paraesophageal hiatal hernia Hypertension history Hyperlipidemia history GERD History of osteoarthritis and rheumatoid arthritis History of anxiety/depression Gait dysfunction Former smoker GI prophylaxis DVT prophylaxis No code Plan: Patient is status post robotic-assisted laparoscopic reduction of gastric volvulus and repair of incarcerated paraesophageal hiatal hernia Patient had swallow study with concerns for complete obstruction and follow-up chest x-ray shows passing of the contrast. Patient is nothing by mouth for now with just ice chips and Pily diet per surgery recommendations and is scheduled for repeat EGD and possible PEG tube placement on 01/07/2023 Encouraged increased activity as tolerated. Patient has received a new walker as hers was broken with no breaks Prognosis is guarded Objective - Vital Signs Vital signs: Vital Signs Temp 97.4 F L 01/05/23 12:40 Pulse 60 01/05/23 12:40 Resp 16 01/05/23 12:40 BP 150/69 01/05/23 12:40 Pulse Ox 99 01/05/23 12:40 FiO2 Intake & Output 01/05/23 01/05/23 01/06/23 06:59 18:59 06:59 Output Total 800 Balance -800 Output: Urine 800 Other: Voiding Method External Catheter - Labs CBC & Chem 7: 01/04/23 06:20 01/06/23 04:55
--- NOTE | 2023-01-07 00:48 | P.PN ---
Subjective Progress Note Date: 01/06/23 This is a pleasant 87-year-old female who was recently admitted with severe weakness and severe protein calorie malnutrition was scheduled to have PEG tube placed today but patient is not a candidate as there is complete 100%. Esophageal intrathoracic hiatal hernia and to high risk for surgical intervent ion. Patient is plan for EGD today which is pending.. General surgery Dr. Walker following and patient is currently nothing by mouth. Patient reports attempting pills and oral intake although unable to tolerate. Patient has been spitting them back up. Patient is afebrile denies chest pain or shortness of breath. Patient be evaluated by physical therapy. A.m. labs pending. Will follow up. Await surgical report. 01/01/2023 Patient is seen in follow-up this morning scheduled to undergo barium swallow study this patient is status post EGD with balloon dilatation with Dr. Walker yesterday. Pulmonary and cardiology being consulted as patient was noted to have paraesophageal hernia and being considered for repair. Patient has been having significant dysphagia with inability to tolerate oral intake. Biopsies were also obtained during the EGD which are pending. Patient is afebrile denies chest pain or shortness of breath. Patient started on pured diet and reports to tolerating. Recommend aspiration precautions and head of the bed elevated 30-45 at all times. 01/02/2023 Patient is seen and evaluated today sitting up in the chair reports to doing relatively well. Patient did have one episode of frothy vomit this morning after breakfast. Patient is maintained on pured diet and will be nothing by mouth at midnight. Patient is scheduled for paraesophageal hernia repair with Dr. King on 01/03/2023. Patient has been seen and evaluated by cardiology along with pulmonary with no absolute contraindication to surgery and has been cleared for surgical intervention tomorrow. Patient has discussed the risks versus the benefits and is willing to proceed. Patient reports she was slightly anxious at first about having a surgery although feels it is necessary and is agreeable with this. Patient ambulates independently with a 4 wheeled walker and has assistive devices in the home and has home care. Patient's 4 wheeled walker is broken has no breaks and would benefit from a new 4 wheeled walker to assist patient with everyday walking tasks and ADLs. Patient is afebrile with no reported chest pain or shortness of breath. 01/03/2023 Patient is currently nothing by mouth and going down to OR for paraesophageal hernia repair with Dr. King today. Will await surgical report. Patient is currently afebrile with no reported chest pain or shortness of breath. Blood pressure mildly elevated this morning and will receive home blood pressure m edications prior to surgery. Patient has received cardiology and pulmonary clearance for surgical intervention today. 01/04/2023 Patient seen and evaluated in follow-up today status post paraesophageal hernia repair. Patient had a swallow study showing obstruction and is scheduled for chest x-ray today. Patient reports to no nausea or vomiting today and reports feeling well. There is discussion of possible PEG tube placement and patient will undergo repeat EGD with dilatation on 01/07/2023. Patient is currently afebrile denies chest pain or shortness of breath. 01/05/2023 Patient is currently resting in the bed. Awake alert and oriented. On 2 L oxygen via nasal cannula. No complaints of chest pain or shortness of breath. Patient is status post robotic assisted reduction of gastric volvulus and repair of incarcerated paraesophageal hernia. POD 2 Esophagogram showed complete obstruction following the surgery as the patient was found to have stomach pulling in the distal esophagus. Patient is currently nothing by mouth and general surgery is planning for PEG tube placement likely on Saturday. Laboratory data showed sodium 141 potassium 4.0 chloride 112 bicarb is 22.5 BUN 12.3 and creatinine 0.7 calcium 7.7. 01/06/2023 Patient is currently sitting in the chair. Awake alert and oriented 2-3. On room air. No complaints of chest pain or shortness of breath. No nausea vomiting abdominal pain or diarrhea. Patient is scheduled for PEG tube placement tomorrow Laboratory showed sodium 141 potassium 4.0 chloride 112 bicarb is 20.5 BUN 12.3 and creatinine 0.7. Patient is being continued on IV hydration with normal saline at 70 versus well-controlled. Also on IV Protonix. Review of systems: Constitutional: No reports of fatigue, fever, or chills Cardiovascular: No reports of chest pain or palpitations Respiratory: No reports of shortness of breath or cough GI: No reports of nausea, no reports of vomiting : No reports of dysuria or retention Neurovascular: reports of generalized weakness All medications have been reviewed PHYSICAL EXAMINATION: GENERAL: The patient is alert and oriented x4, Well developed, thin built, elderly appearing. HEENT: Pupils are round and equally reacting to light. EOMI. no scleral icterus. No conjunctival pallor. Normocephalic, atraumatic. No pharyngeal erythema. No thyromegaly. CARDIOVASCULAR: S1 and S2 muffled PULMONARY: diminished breath sounds bilaterally with no wheezing or rhonchi noted. ABDOMEN: soft. Nontender on exam. non-distended, normoactive bowel sounds. No palpable organomegaly. MUSCULOSKELETAL: No joint swelling or deformity. EXTREMITIES: No cyanosis, clubbing, or pedal edema. NEUROLOGICAL: Gross neurological examination did not reveal any focal deficits. Diffuse weakness SKIN: No rashes. 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 stricture Intrathoracic paraesophageal diaphragmatic hiatal hernia is noted on EGD with erosive esophagitis, status post robotic-assisted laparoscopic reduction of gastric volvulus and repair of incarcerated paraesophageal hiatal hernia Hypertension history Hyperlipidemia history GERD History of osteoarthritis and rheumatoid arthritis History of anxiety/depression Gait dysfunction Former smoker GI prophylaxis DVT prophylaxis No code Plan: Patient is status post robotic-assisted laparoscopic reduction of gastric volvulus and repair of incarcerated paraesophageal hiatal hernia Patient had swallow study with concerns for complete obstruction and follow-up chest x-ray shows passing of the contrast. Patient is nothing by mouth for now with just ice chips and Piyl diet per surgery recommendations and is scheduled for repeat EGD and possible PEG tube placement on 01/07/2023 Encouraged increased activity as tolerated. Patient has received a new walker as hers was broken with no breaks Prognosis is guarded Objective - Vital Signs Vital signs: Vital Signs Temp 98 F 01/06/23 20:00 Pulse 47 L 01/06/23 20:00 Resp 17 01/06/23 20:00 BP 158/69 01/06/23 20:00 Pulse Ox 92 L 01/06/23 20:00 FiO2 Intake & Output 01/06/23 01/06/23 01/07/23 06:59 18:59 06:59 Output Total 450 Balance -450 Output: Urine 450 Other: Voiding Method External Catheter - Labs CBC & Chem 7: 01/04/23 06:20 01/06/23 04:55 Labs: Abnormal Lab Results - Last 24 Hours (Table) 01/06/23 Range/Units 04:55 Chloride 112 H (96-109) mmol/L Glucose 140 H (70-110) mg/dL Calcium 7.7 L (8.7-10.3) mg/dL
[2023-01-07] MEDS: ONDANSETRON 4 MG/2 ML VIAL IVP SCH ×4 (06:30→23:27)
[2023-01-07] MEDS: METOCLOPRAMIDE 5 MG/ML 2 ML VIAL IVP SCH ×4 (06:31→23:27)
[2023-01-07] MEDS ORDERED: IV FLUID CONTINUATION 400 ML IV ONE (07:36)
[2023-01-07] MEDS ORDERED: LIDOCAINE 2% INJ 20 MG/ML (2 ML VIAL) ONE (07:37)
[2023-01-07] MEDS ORDERED: SODIUM CHLORIDE 0.9% 100 ML BAG ONE (07:37)
[2023-01-07] MEDS ORDERED: PROPOFOL 10 MG/ML 20 ML VIAL IV ONE (07:37)
[2023-01-07] MEDS ORDERED: ceFAZolin 1,000 MG VIAL ONE (07:37)
--- NOTE | 2023-01-07 08:24 | P.PCN ---
Date of Procedure: 01/07/23 Description of Procedure: PREOPERATIVE DIAGNOSIS: Esophageal obstruction Dysphagia. Gastroesophageal reflux disease Severe presbyesophagus/esophageal dysmotility Underweight, BMI 17.2 Moderate to severe protein malnutrition POSTOPERATIVE DIAGNOSIS: Esophageal obstruction Dysphagia. Gastroesophageal reflux disease with erosive esophagitis Severe presbyesophagus/esophageal dysmotility Underweight, BMI 17.2 Moderate to severe protein malnutrition OPERATION: Esophagogastroduodenoscopy with rigid dilator over the guidewire 51 to 54 Fr. SURGEON: Jeanette Walker MD ANESTHESIA: MAC. INDICATIONS: The patient is a 54-year-old male who presents with a history of dysphagia. Benefits and risks of the procedure were described. Informed consent was obtained. DESCRIPTION: The patient was brought into the endoscopy suite and laid in the left lateral decubitus position. After a timeout was confirmed, the procedure was initiated. An Olympus gastroscope was passed and the stomach was entered. Severe presbyesophagus/esophageal dysmotility identified. Mild gastritis was identified. The scope was advanced to the duodenum which was unremarkable. Retroflexion the scope confirmed a Hill grade 1 lower esophageal valve. Next using an Martiniquais rigid dilator, a guidewire was placed through the pedi atric gastroscope. Next the scope was withdrawn. A 51-Fr followed by 54-[place] rigid Martiniquais dilator was passed carefully along the posterior oropharynx to 50 cm and left in place for 2-3 minutes stretch. The dilator was withdrawn including the guidewire. The scope was reentered along the posterior oropharynx with no findings of full-thickness tear of the upper esophageal sphincter. No full-thickness injury was encountered. The GI tract was desufflated. The patient tolerated the procedure well. FINDINGS: Squamocolumnar junction unremarkable at 35 cm. Distal esophageal stricture without ulceration Martiniquais rigid dilator 51-Fr to 54-[place] completed. Diffuse gastritis. Hill grade 1 lower esophageal valve. LA grade C esophagitis. Severe presbyesophagus/esophageal dysmotility RECOMMENDATIONS: Upper endoscopy as needed
--- NOTE | 2023-01-07 08:27 | P.PCN ---
Date of Procedure: 01/07/23 Description of Procedure: PREOPERATIVE DIAGNOSIS: Severe protein malnutrition secondary to inadequate protein intake. Anorexia Under weight, BMI 17.2 Hypoalbuminemia. Esophageal obstruction Severe esophageal dysmotility Gastroesophageal reflux disease with erosive esophagitis POSTOPERATIVE DIAGNOSIS: Severe protein malnutrition secondary to inadequate protein intake. Anorexia Under weight, BMI 17.2 Hypoalbuminemia. Esophageal obstruction Severe esophageal dysmotility Gastroesophageal reflux disease with erosive esophagitis OPERATION: Esophagogastroduodenoscopy with percutaneous endoscopic gastrostomy tube placement 20-Lao, Pull technique MICHAEL. SURGEON: Jeanette Walker MD ANESTHESIA: MAC. INDICATIONS: The patient is a 87-year-old male who presents with chronic esophageal obstruction, underweight and moderate to severe protein malnutrition. Benefits and risks of the procedure were described. Informed consent was obtained. DESCRIPTION: The patient was laid in supine position. After adequate IV sedation a bite block was placed. An Olympus gastroscope was passed along the posterior oropharynx down the distal esophagus. The stomach was entered. Gastritis was encountered. The antrum appeared unremarkable. A point along the anterior surface, greater curvature of the stomach was selected. The scope was passed to the duodenum which was unremarkable. The skin was cleansed with ChloraPrep and an incision was made after illuminating the proposed PEG tube site. Using a 16-Lao needle, a guidewire was fed into the stomach under endoscopic visualization. A snare was used to pull the guidewireout of the mouth. Over the guidewire, the PEG tube was pulled over the guidewire until it exited through the skin incision. The guidewire was removed. The round fitting clasp was placed over the gastrostomy tube and fixed at 1.5 cm at the skin. A feeding adapter was placed at the cut end of the feeding tube. An endoscopic captured image of the gastrostomy tube within the stomach was made. The patient tolerated the procedure well. Findings: 1. Hill grade 1 lower esophageal valve. 2. Resolved diaphragmatic hiatal hernia 3. No acute gastric ulcers. 4. No acute duodenitis. Disposition: 1. Will start tube feeds within 24 hours with goal determined with pharmacist critical care. 2. Recommend lifelong gastrostomy tube feedings due to severe esophageal obstruction/protein malnutrition Plan - Discharge Summary Discharge Rx Participant: No New Discharge Prescriptions: No Action Esomeprazole Magnesium [NexIUM] 40 mg PO DAILY Levothyroxine Sodium [Synthroid] 50 mcg PO DAILY atenoloL [Atenolol] 25 mg PO DAILY DULoxetine HCL [Cymbalta] 60 mg PO DAILY polyethylene glycoL 3350 [Miralax] 17 gm PO DAILY predniSONE 5 mg PO DAILY Tofacitinib Citrate [Xeljanz] 5 mg PO BID HYDROcodone/APAP 10-325MG [[place] 10-325] 1 tab PO Q6H PRN PRN Reason: Pain Multivit-Min/Iron/Folic/Lutein [Centrum Silver Women Tablet] 1 tab PO DAILY Carboxymethylcellulose Sodium [Refresh Tears] 1 drop BOTH EYES QID PRN PRN Reason: DRY EYES Rosuvastatin [Crestor] 20 mg PO DAILY lisinopriL [Zestril] 10 mg PO DAILY Sucralfate [Carafate] 1 gm PO AC-BID Fluticasone Nasal [place] [Flonase Nasal [place]] 1 spray EA NOSTRIL DAILY Discharge Medication List Esomeprazole Magnesium [NexIUM] 40 mg PO DAILY 08/31/13 [History] Levothyroxine Sodium [Synthroid] 50 mcg PO DAILY 08/31/13 [History] atenoloL [Atenolol] 25 mg PO DAILY 01/11/14 [History] DULoxetine HCL [Cymbalta] 60 mg PO DAILY 04/05/14 [History] polyethylene glycoL 3350 [Miralax] 17 gm PO DAILY 03/09/15 [History] Tofacitinib Citrate [Xeljanz] 5 mg PO BID 07/16/18 [History] predniSONE 5 mg PO DAILY 07/16/18 [History] Carboxymethylcellulose Sodium [Refresh Tears] 1 drop BOTH EYES QID PRN 12/28/22 [History] Fluticasone Nasal [place] [Flonase Nasal [place]] 1 spray EA NOSTRIL DAILY 12/28/22 [History] HYDROcodone/APAP 10-325MG [[place] 10-325] 1 tab PO Q6H PRN 12/28/22 [History] Multivit-Min/Iron/Folic/Lutein [Centrum Silver Women Tablet] 1 tab PO DAILY 12/28/22 [History] Rosuvastatin [Crestor] 20 mg PO DAILY 12/28/22 [History] Sucralfate [Carafate] 1 gm PO AC-BID 12/28/22 [History] lisinopriL [Zestril] 10 mg PO DAILY 12/28/22 [History] Follow up Appointment(s)/Referral(s): Samantha Hodges DO [Primary Care Provider] - 1-2 days
[2023-01-07] MEDS: PANTOPRAZOLE 40 MG/10 ML VIAL IVP SCH (09:48)
[2023-01-07] MEDS: HYDROCORTISONE SUCCINATE 100 MG/2 ML VIAL IV SCH ×3 (09:48→23:27)
[2023-01-07] MEDS: lisinopriL 10 MG TAB PO SCH (09:48)
[2023-01-07] MEDS: HEPARIN SODIUM,PORCINE 5,000 UNIT/ML 1 ML VIAL SQ SCH ×2 (09:48→20:17)
[2023-01-07] MEDS: atenoloL 25 MG TAB PO SCH (09:49)
[2023-01-07] MEDS: SODIUM CHLORIDE 0.9% 1,000 ML IV SCH ×2 (09:49→20:17)
[2023-01-07] MEDS: FLUTICASONE 50MCG/SPRAY NASAL 16GM EA NOSTRIL SCH (09:49)
[2023-01-07] MEDS: ATORVASTATIN 40 MG TAB PO SCH (09:49)
[2023-01-07] MEDS: HYDROmorphone 0.5 MG/0.5 ML SYRINGE IVP PRN ×2 (10:11→15:46)
[2023-01-07] MEDS: amLODIPine 10 MG TAB PO SCH (13:05)
[2023-01-07] MEDS: TEMAZEPAM 15 MG CAP PO PRN (22:11)
--- NOTE | 2023-01-08 01:43 | P.PN ---
Subjective Progress Note Date: 01/07/23 This is a pleasant 87-year-old female who was recently admitted with severe weakness and severe protein calorie malnutrition was scheduled to have PEG tube placed today but patient is not a candidate as there is complete 100%. Esophageal intrathoracic hiatal hernia and to high risk for surgical interve ntion. Patient is plan for EGD today which is pending.. General surgery Dr. Walker following and patient is currently nothing by mouth. Patient reports attempting pills and oral intake although unable to tolerate. Patient has been spitting them back up. Patient is afebrile denies chest pain or shortness of breath. Patient be evaluated by physical therapy. A.m. labs pending. Will follow up. Await surgical report. 01/01/2023 Patient is seen in follow-up this morning scheduled to undergo barium swallow study this patient is status post EGD with balloon dilatation with Dr. Walker yesterday. Pulmonary and cardiology being consulted as patient was noted to have paraesophageal hernia and being considered for repair. Patient has been having significant dysphagia with inability to tolerate oral intake. Biopsies were also obtained during the EGD which are pending. Patient is afebrile denies chest pain or shortness of breath. Patient started on pured diet and reports to tolerating. Recommend aspiration precautions and head of the bed elevated 30-45 at all times. 01/02/2023 Patient is seen and evaluated today sitting up in the chair reports to doing relatively well. Patient did have one episode of frothy vomit this morning after breakfast. Patient is maintained on pured diet and will be nothing by mouth at midnight. Patient is scheduled for paraesophageal hernia repair with Dr. King on 01/03/2023. Patient has been seen and evaluated by cardiology along with pulmonary with no absolute contraindication to surgery and has been cleared for surgical intervention tomorrow. Patient has discussed the risks versus the benefits and is willing to proceed. Patient reports she was slightly anxious at first about having a surgery although feels it is necessary and is agreeable with this. Patient ambulates independently with a 4 wheeled walker and has assistive devices in the home and has home care. Patient's 4 wheeled walker is broken has no breaks and would benefit from a new 4 wheeled walker to assist patient with everyday walking tasks and ADLs. Patient is afebrile with no reported chest pain or shortness of breath. 01/03/2023 Patient is currently nothing by mouth and going down to OR for paraesophageal hernia repair with Dr. King today. Will await surgical report. Patient is currently afebrile with no reported chest pain or shortness of breath. Blood pressure mildly elevated this morning and will receive home blood pressure medications prior to surgery. Patient has received cardiology and pulmonary clearance for surgical intervention today. 01/04/2023 Patient seen and evaluated in follow-up today status post paraesophageal hernia repair. Patient had a swallow study showing obstruction and is scheduled for chest x-ray today. Patient reports to no nausea or vomiting today and reports feeling well. There is discussion of possible PEG tube placement and patient will undergo repeat EGD with dilatation on 01/07/2023. Patient is currently afebrile denies chest pain or shortness of breath. 01/05/2023 Patient is currently resting in the bed. Awake alert and oriented. On 2 L oxygen via nasal cannula. No complaints of chest pain or shortness of breath. Patient is status post robotic assisted reduction of gastric volvulus and repair of incarcerated paraesophageal hernia. POD 2 Esophagogram showed complete obstruction following the surgery as the patient was found to have stomach pulling in the distal esophagus. Patient is currently nothing by mouth and general surgery is planning for PEG tube placement likely on Saturday. Laboratory data showed sodium 141 potassium 4.0 chloride 112 bicarb is 22.5 BUN 12.3 and creatinine 0.7 calcium 7.7. 01/06/2023 Patient is currently sitting in the chair. Awake alert and oriented 2-3. On room air. No complaints of chest pain or shortness of breath. No nausea vomiting abdominal pain or diarrhea. Patient is scheduled for PEG tube placement tomorrow Laboratory showed sodium 141 potassium 4.0 chloride 112 bicarb is 20.5 BUN 12.3 and creatinine 0.7. Patient is being continued on IV hydration with normal saline at 70 versus well-controlled. Also on IV Protonix. 01/07/2023 Patient is seen in follow-up status post PEG tube placement along with EGD and dilatation with Dr. King today. Patient will have dietary consult and start tube feedings after 24 hours per surgery recommendations. Patient was started on full liquid diet. Blood pressures have been elevated will add Norvasc very patient is currently afebrile with no reported chest pain or shortness of breath. Will discuss further with case management/social work in regards to arranging for tube feedings outpatient and Homecare as patient plans on returning home. Review of systems: Constitutional: No reports of fatigue, fever, or chills Cardiovascular: No reports of chest pain or palpitations Respiratory: No reports of shortness of breath or cough GI: No reports of nausea, no reports of vomiting : No reports of dysuria or retention Neurovascular: reports of generalized weakness All medications have been reviewed PHYSICAL EXAMINATION: GENERAL: The patient is alert and oriented x4, Well developed, thin built, elderly appearing. HEENT: Pupils are round and equally reacting to light. EOMI. no scleral icterus. No conjunctival pallor. Normocephalic, atraumatic. No pharyngeal erythema. No thyromegaly. CARDIOVASCULAR: S1 and S2 muffled PULMONARY: diminished breath sounds bilaterally with no wheezing or rhonchi noted. ABDOMEN: soft. Nontender on exam. non-distended, normoactive bowel sounds. No palpable organomegaly. PEG tube noted MUSCULOSKELETAL: No joint swelling or deformity. EXTREMITIES: No cyanosis, clubbing, or pedal edema. NEUROLOGICAL: Gross neurological examination did not reveal any focal deficits. Diffuse weakness SKIN: No rashes. 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 stricture Intrathoracic paraesophageal diaphragmatic hiatal hernia is noted on EGD with erosive esophagitis, status post robotic-assisted laparoscopic reduction of gastric volvulus and repair of incarcerated paraesophageal hiatal hernia PEG tube placement on 01/07/2023 Severe protein calorie malnutrition BMI of 17.2 Hypertension history Hyperlipidemia history GERD History of osteoarthritis and rheumatoid arthritis History of anxiety/depression Gait dysfunction Former smoker GI prophylaxis DVT prophylaxis No code Plan: Patient is status post robotic-assisted laparoscopic reduction of gastric volvulus and repair of incarcerated paraesophageal hiatal hernia Patient had follow-up swallow study with concerns for complete obstruction and follow-up chest x-ray shows passing of the contrast. Patient is status post PEG tube placement today 01/07/2023 with dietary on consult and will initiate tube feedings after 24 hours per surgery recommendations. Patient being resumed on full liquid diet as patient underwent repeat EGD with dilatation Social work following and will plan on arranging tube feedings and Homecare as patient plans on returning home. Encouraged increased activity as tolerated. Due to multiple complex medical issues, Prognosis is guarded Will discuss further with surgery on clearance for discharge in the next 24-48 hours The impression and plan of care has been dictated by Brea Barclay, nurse pr actitioner as directed. Dr. Howie MD I have performed a history and examination and MDM of this patient, discussed the same with the dictator, and agree with the dictator's assessment and plan as written ,documented as a scribe. Based on total visit time, I have performed more than 50% of the visit. Any additional findings or plans will be noted. Objective - Vital Signs Vital signs: Vital Signs Temp 98.6 F 01/07/23 13:38 Pulse 64 01/07/23 13:38 Resp 17 01/07/23 13:38 BP 131/65 01/07/23 13:38 Pulse Ox 98 01/07/23 13:38 FiO2 Intake & Output 01/06/23 01/07/23 01/07/23 18:59 06:59 18:59 Intake Total 200 Output Total 900 200 Balance -900 0 Weight 38.555 kg Intake: IV 200 Output: Urine 900 200 Stool 0 Other: Voiding Method External Catheter External Catheter External Catheter - Labs CBC & Chem 7: 01/04/23 06:20 01/06/23 04:55
[2023-01-08] MEDS: ONDANSETRON 4 MG/2 ML VIAL IVP SCH ×3 (05:44→17:08)
[2023-01-08] MEDS: METOCLOPRAMIDE 5 MG/ML 2 ML VIAL IVP SCH ×3 (05:44→17:03)
[2023-01-08] MEDS: HEPARIN SODIUM,PORCINE 5,000 UNIT/ML 1 ML VIAL SQ SCH ×2 (08:27→21:12)
[2023-01-08] MEDS: lisinopriL 10 MG TAB PO SCH (08:27)
[2023-01-08] MEDS: amLODIPine 10 MG TAB PO SCH (08:27)
[2023-01-08] MEDS: HYDROCORTISONE SUCCINATE 100 MG/2 ML VIAL IV SCH ×2 (08:27→17:04)
[2023-01-08] MEDS: ATORVASTATIN 40 MG TAB PO SCH (08:27)
[2023-01-08] MEDS: FLUTICASONE 50MCG/SPRAY NASAL 16GM EA NOSTRIL SCH (08:28)
[2023-01-08] MEDS: PANTOPRAZOLE 40 MG/10 ML VIAL IVP SCH (08:31)
[2023-01-08] MEDS: atenoloL 25 MG TAB PO SCH (09:11)
[2023-01-08] MEDS: SODIUM CHLORIDE 0.9% 1,000 ML IV SCH (10:37)
[2023-01-08 11:17] LABS: Blood Urea Nitrogen 15.9 mg/dL (9.0-27.0); Calcium 7.7 mg/dL (8.7-10.3); Carbon Dioxide 22.2 mmol/L (21.6-31.8); Chloride 112 mmol/L (96-109); Glucose 134 mg/dL (70-110); Phosphorus 1.8 mg/dL (2.4-5.1); Potassium 3.9 mmol/L (3.5-5.5); Sodium 142 mmol/L (135-145)
--- NOTE | 2023-01-08 11:55 | P.PN ---
Subjective Progress Note Date: 01/08/23 CHIEF COMPLAINT: Dysphagia and weight loss HISTORY OF PRESENT ILLNESS: Patient is status post robotic-assisted laparoscopic reduction of gastric volvulus and repair of incarcerated paraesophageal hiatal hernia with [employer] on 01/03/23. Patient status post EGD with dilation and PEG tube placement yesterday 01/07/2023. Tube feeds have been started. Currently at 15 mL per hour. No residual reported. Patient denies abdominal pain. She signing a bed comfortably. Afebrile. Phosphorus 1.8 PHYSICAL EXAM: VITAL SIGNS: Reviewed GENERAL: Well-developed in no acute distress. HEENT: No sclera icterus. Extraocular movements grossly intact. Moist buccal mucosa. Head is atraumatic, normocephalic. Hears conversational speech. No nasal drainage. NECK: Supple without lymphadenopathy. CHEST: Non-labored respirations and equal bilateral excursions. CARDIOVASCULAR: Palpable 2+ radial pulses. ABDOMEN: Soft. Nondistended. PEG tube site clean dry and intact MUSCULOSKELETAL: No clubbing or cyanosis. NEUROLOGIC: No focal or lateralizing signs. Cranial nerves II through XII grossly intact. PSYCH: Appropriate affect. Alert and oriented to person, place and time. SKIN: Well perfused. Good skin turgor. ASSESSMENT: Paraesophageal midline diaphragmatic hernia, 10 x 4 cm, with incarceration and gastric volvulus, mesentery axial rotation Severe protein malnutrition secondary to inadequate protein intake. Anorexia Under weight, BMI 17.2 Hypoalbuminemia. Esophageal obstruction Severe esophageal dysmotility Gastroesophageal reflux disease with erosive esophagitis Hypophosphatemia PLAN: -Continue to titrate tube feeds per dietitian recommendations -Recommend lifelong gastrostomy tube feedings due to severe esophageal obstruction/protein malnutrition -Continue full liquid diet with no straws or carbonated beverages -Patient can be discharged from surgical standpoint when medically cleared -Add incentive spirometer -Encouraged patient to increase activity level Physician Shot Dropper note has been reviewed by physician. Signing provider agrees with the documented findings, assessment, and plan of care. Objective - Vital Signs Vital signs: Vital Signs Temp 97.4 F L 01/08/23 07:37 Pulse 57 L 01/08/23 07:37 Resp 18 01/08/23 08:02 BP 160/67 01/08/23 07:37 Pulse Ox 97 01/08/23 07:37 FiO2 Intake & Output 01/07/23 01/08/23 01/08/23 18:59 06:59 18:59 Intake Total 200 250 Output Total 200 Balance 0 250 Weight 38.555 kg Intake: IV 200 Oral 250 Output: Urine 200 Stool 0 Other: Voiding Method External Catheter External Catheter External Catheter - Labs CBC & Chem 7: 01/04/23 06:20 01/08/23 07:01
[2023-01-08] MEDS: HYDROmorphone 0.5 MG/0.5 ML SYRINGE IVP PRN (13:42)
--- NOTE | 2023-01-08 15:43 | P.PN ---
Subjective Progress Note Date: 01/08/23 This is a pleasant 87-year-old female who was recently admitted with severe weakness and severe protein calorie malnutrition was scheduled to have PEG tube placed today but patient is not a candidate as there is complete 100%. Esophageal intrathoracic hiatal hernia and to high risk for surgical interve ntion. Patient is plan for EGD today which is pending.. General surgery Dr. Walker following and patient is currently nothing by mouth. Patient reports attempting pills and oral intake although unable to tolerate. Patient has been spitting them back up. Patient is afebrile denies chest pain or shortness of breath. Patient be evaluated by physical therapy. A.m. labs pending. Will follow up. Await surgical report. 01/01/2023 Patient is seen in follow-up this morning scheduled to undergo barium swallow study this patient is status post EGD with balloon dilatation with Dr. Walker yesterday. Pulmonary and cardiology being consulted as patient was noted to have paraesophageal hernia and being considered for repair. Patient has been having significant dysphagia with inability to tolerate oral intake. Biopsies were also obtained during the EGD which are pending. Patient is afebrile denies chest pain or shortness of breath. Patient started on pured diet and reports to tolerating. Recommend aspiration precautions and head of the bed elevated 30-45 at all times. 01/02/2023 Patient is seen and evaluated today sitting up in the chair reports to doing relatively well. Patient did have one episode of frothy vomit this morning after breakfast. Patient is maintained on pured diet and will be nothing by mouth at midnight. Patient is scheduled for paraesophageal hernia repair with Dr. King on 01/03/2023. Patient has been seen and evaluated by cardiology along with pulmonary with no absolute contraindication to surgery and has been cleared for surgical intervention tomorrow. Patient has discussed the risks versus the benefits and is willing to proceed. Patient reports she was slightly anxious at first about having a surgery although feels it is necessary and is agreeable with this. Patient ambulates independently with a 4 wheeled walker and has assistive devices in the home and has home care. Patient's 4 wheeled walker is broken has no breaks and would benefit from a new 4 wheeled walker to assist patient with everyday walking tasks and ADLs. Patient is afebrile with no reported chest pain or shortness of breath. 01/03/2023 Patient is currently nothing by mouth and going down to OR for paraesophageal hernia repair with Dr. King today. Will await surgical report. Patient is currently afebrile with no reported chest pain or shortness of breath. Blood pressure mildly elevated this morning and will receive home blood pressure medications prior to surgery. Patient has received cardiology and pulmonary clearance for surgical intervention today. 01/04/2023 Patient seen and evaluated in follow-up today status post paraesophageal hernia repair. Patient had a swallow study showing obstruction and is scheduled for chest x-ray today. Patient reports to no nausea or vomiting today and reports feeling well. There is discussion of possible PEG tube placement and patient will undergo repeat EGD with dilatation on 01/07/2023. Patient is currently afebrile denies chest pain or shortness of breath. 01/05/2023 Patient is currently resting in the bed. Awake alert and oriented. On 2 L oxygen via nasal cannula. No complaints of chest pain or shortness of breath. Patient is status post robotic assisted reduction of gastric volvulus and repair of incarcerated paraesophageal hernia. POD 2 Esophagogram showed complete obstruction following the surgery as the patient was found to have stomach pulling in the distal esophagus. Patient is currently nothing by mouth and general surgery is planning for PEG tube placement likely on Saturday. Laboratory data showed sodium 141 potassium 4.0 chloride 112 bicarb is 22.5 BUN 12.3 and creatinine 0.7 calcium 7.7. 01/06/2023 Patient is currently sitting in the chair. Awake alert and oriented 2-3. On room air. No complaints of chest pain or shortness of breath. No nausea vomiting abdominal pain or diarrhea. Patient is scheduled for PEG tube placement tomorrow Laboratory showed sodium 141 potassium 4.0 chloride 112 bicarb is 20.5 BUN 12.3 and creatinine 0.7. Patient is being continued on IV hydration with normal saline at 70 versus well-controlled. Also on IV Protonix. 01/07/2023 Patient is seen in follow-up status post PEG tube placement along with EGD and dilatation with Dr. King today. Patient will have dietary consult and start tube feedings after 24 hours per surgery recommendations. Patient was started on full liquid diet. Blood pressures have been elevated will add Norvasc very patient is currently afebrile with no reported chest pain or shortness of breath. Will discuss further with case management/social work in regards to arranging for tube feedings outpatient and Homecare as patient plans on returning home. 01/08/2023 Patient is seen and evaluated in follow-up this morning has been initiated on tube feedings with dietary following via PEG tube. Currently at 15 mL per hour with dietary advancing slowly as tolerated. Patient will likely require lifelong gastrostomy tube feedings secondary to her severe esophageal obstruction. Patient okay to continue on full liquid diet with no straws and no carbonated beverages and would recommend aspiration precautions with head of the bed elevated 45 at all times. Patient with overall generalized weakness does use a walker at home and has currently no help at home but family is coming in from [place] to help her and arranging for outpatient home care. Patient evaluated by physical therapy and will be going to rehab for continued PEG tube feedings with advancing to goal and education regarding this new intervention. Patient is agreeable with this and social work is following and patient will be going to [facility]. Patient chronically takes rheumatoid arthritis medications in the form of Xeljanz and will be holding for the duration of ECF and will resume once outpatient and follow-up with crane operator. Patient is currently afebrile with no reports of chest pain or shortness of breath. Patient with incentive spirometer at the bedside encouraged to continue using. Review of systems: Constitutional: No reports of fatigue, fever, or chills Cardiovascular: No reports of chest pain or palpitations Respiratory: No reports of shortness of breath or cough GI: No reports of nausea, no reports of vomiting : No reports of dysuria or retention Neurovascular: reports of generalized weakness All medications have been reviewed PHYSICAL EXAMINATION: GENERAL: The patient is alert and oriented x4, Well developed, thin built, elderly appearing. HEENT: Pupils are round and equally reacting to light. EOMI. no scleral icterus. No conjunctival pallor. Normocephalic, atraumatic. No pharyngeal erythema. No thyromegaly. CARDIOVASCULAR: S1 and S2 muffled PULMONARY: diminished breath sounds bilaterally with no wheezing or rhonchi noted. ABDOMEN: soft. Nontender on exam. non-distended, normoactive bowel sounds. No palpable organomegaly. PEG tube noted MUSCULOSKELETAL: No joint swelling or deformity. EXTREMITIES: No cyanosis, clubbing, or pedal edema. NEUROLOGICAL: Gross neurological examination did not reveal any focal deficits. Diffuse weakness SKIN: No rashes. 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 stricture status post PEG tube placement on 01/07/2023 Intrathoracic paraesophageal diaphragmatic hiatal hernia is noted on EGD with erosive esophagitis, status post robotic-assisted laparoscopic reduction of lilliam gloria volvulus and repair of incarcerated paraesophageal hiatal hernia Severe protein calorie malnutrition BMI of 17.2 Hypertension history Hyperlipidemia history GERD History of osteoarthritis and rheumatoid arthritis History of anxiety/depression Gait dysfunction Former smoker GI prophylaxis DVT prophylaxis No code Plan: Patient is status post robotic-assisted laparoscopic reduction of gastric volvulus and repair of incarcerated paraesophageal hiatal hernia Patient is status post PEG tube placement on 01/07/2023 with dietary on consult and has been initiated on tube feedings currently at 15 mL per hour and will slowly advance as tolerated per dietary recommendations. Patient being resumed on full liquid diet as patient underwent repeat EGD with dilatation Social work following and will plan on arranging tube feedings and will be going to [facility] family is arranging to come in from [place] to help assist with the patient Patient chronically takes medications for rheumatoid arthritis in the form of Xeljanz which has been held and will continue to be held for the duration of ECF. Patient is agreeable to this and will follow-up with crane operator once discharged from ECF to resume. Encouraged increased activity as tolerated. Due to multiple complex medical issues, Prognosis is guarded Will plan for discharge in 24 hours to [facility] The impression and plan of care has been dictated by Brea Barclay, nurse practitioner as directed. Dr. Howie MD I have performed a history and examination and MDM of this patient, discussed the same with the dictator, and agree with the dictator's assessment and plan as written ,documented as a scribe. Based on total visit time, I have performed more than 50% of the visit. Any additional findings or plans will be noted. Objective - Vital Signs Vital signs: Vital Signs Temp 97.9 F 01/08/23 12:56 Pulse 74 01/08/23 12:56 Resp 17 01/08/23 12:56 BP 135/71 01/08/23 12:56 Pulse Ox 95 01/08/23 12:56 FiO2 Intake & Output 01/07/23 01/08/23 01/08/23 18:59 06:59 18:59 Intake Total 200 500 Output Total 200 Balance 0 500 Weight 38.555 kg Intake: IV 200 Oral 500 Output: Urine 200 Stool 0 Other: Voiding Method External Catheter External Catheter External Catheter # Voids 1 - Labs CBC & Chem 7: 01/04/23 06:20 01/08/23 07:01 Labs: Abnormal Lab Results - Last 24 Hours (Table) 01/08/23 Range/Units 07:01 Chloride 112 H (96-109) mmol/L BUN/Creatinine Ratio 26.50 H (12.00-20.00) Ratio Glucose 134 H (70-110) mg/dL Calcium 7.7 L (8.7-10.3) mg/dL Phosphorus 1.8 L (2.4-5.1) mg/dL
[2023-01-08] MEDS: TEMAZEPAM 15 MG CAP PO PRN (21:17)
[2023-01-09] MEDS: METOCLOPRAMIDE 5 MG/ML 2 ML VIAL IVP SCH ×3 (00:05→12:15)
[2023-01-09] MEDS: ONDANSETRON 4 MG/2 ML VIAL IVP SCH ×3 (00:05→12:15)
[2023-01-09] MEDS: HYDROCORTISONE SUCCINATE 100 MG/2 ML VIAL IV SCH ×2 (00:05→08:49)
[2023-01-09] MEDS: SODIUM CHLORIDE 0.9% 1,000 ML IV SCH ×2 (00:09→12:06)
[2023-01-09 07:44] VITALS: TEMP 97.4
[2023-01-09] MEDS: HEPARIN SODIUM,PORCINE 5,000 UNIT/ML 1 ML VIAL SQ SCH (08:49)
[2023-01-09] MEDS: lisinopriL 10 MG TAB PO SCH (08:50)
[2023-01-09] MEDS: ATORVASTATIN 40 MG TAB PO SCH (08:50)
[2023-01-09] MEDS: FLUTICASONE 50MCG/SPRAY NASAL 16GM EA NOSTRIL SCH (08:50)
[2023-01-09] MEDS: atenoloL 25 MG TAB PO SCH (08:50)
[2023-01-09] MEDS: HYDROmorphone 0.5 MG/0.5 ML SYRINGE IVP PRN (08:51)
[2023-01-09] MEDS: amLODIPine 10 MG TAB PO SCH (08:51)
[2023-01-09] MEDS: PANTOPRAZOLE 40 MG/10 ML VIAL IVP SCH (08:51)
[2023-01-09 09:07] LABS: BUN/Creat Ratio 26.43 Ratio (12.00-20.00); Blood Urea Nitrogen 18.5 mg/dL (9.0-27.0); Calcium 7.9 mg/dL (8.7-10.3); Carbon Dioxide 21.8 mmol/L (21.6-31.8); Chloride 111 mmol/L (96-109); Glucose 180 mg/dL (70-110); Phosphorus 1.2 mg/dL (2.4-5.1); Potassium 3.9 mmol/L (3.5-5.5); Sodium 141 mmol/L (135-145)
--- NOTE | 2023-01-09 10:44 | P.DS ---
Providers Date of admission: 12/28/22 20:48 Expected date of discharge: 01/09/23 Attending physician: Marycarmen Denise Consults: 12/28/22 20:48 Consult Physician Urgent Consulting Provider: Jeanette Walker Consult Reason/Comments: Placement PEG tube Do you want consulting provider notified?: Yes 01/01/23 07:44 Consult Physician Routine Consulting Provider: Violet Cornell Consult Reason/Comments: COPD Do you want consulting provider notified?: Yes Primary care physician: Samantha Hodges Hospital Course: Final diagnosis Severe weakness and severe protein calorie malnutrition with a BMI of 17.2 Dysphasia, mid to distal esophageal stricture Intrathoracic paraesophageal diaphragmatic hiatal hernia is noted on EGD with erosive esophagitis, status post robotic-assisted laparoscopic reduction of gastric volvulus and repair of incarcerated paraesophageal hiatal hernia PEG tube placement on 01/07/2023 Severe protein calorie malnutrition BMI of 17.2 Hypertension history Hyperlipidemia history GERD History of osteoarthritis and rheumatoid arthritis History of anxiety/depression Gait dysfunction Former smoker GI prophylaxis DVT prophylaxis No code Discharge disposition Patient is being discharged in a stable condition with guarded prognosis to [facility] Patient will follow-up with Dr. Hodges in the outpatient setting upon discharge. Patient is to continutube feedings to reach a goal of 21 and close outpatient follow-up with general surgery outpatient as scheduled. Total time taken is greater than 35 minutes. Hospital course This is a 87-year-old female who was recently admitted with severe dysphagia and inability to tolerate any oral intake with severe protein calorie malnutrition and anorexia being closely monitored. Patient evaluated by general surgery underwent EGD twice showing a mid to distal esophageal stricture and intrathoracic paraesophageal diaphragmatic hiatal hernia with erosive esophagitis. Patient failed the follow-up swallow study and initially was not a candidate for PEG tube although reevaluated and underwent repeat EGD with dilatation with PEG tube placement. Patient is status post robotic-assisted laparoscopic reduction of the gastric volvulus and repair of incarcerated paraesophageal hiatal hernia with Dr. King. Patient was started on full liquid diet and okay with aspiration precautions. Patient will likely need EGD with dilatation as needed and will follow-up with general surgery. Patient was started on tube feedings with a goal rate of 21 as mentioned below. Patient to continue with aspiration precautions with head of the bed elevated 45 at all times. Patient has been cleared for discharge. Patient with some generalized weakness and the need of new dietary education regarding tube feedings will be going to ECF on discharge. Plan is for family to come from [place] to come stay with patient as she normally lives alone. Patient is agreeable to holding rheumatoid medication Xeljanz while in the ECF and will resume once discharged from ECF and followed up with primary care provider. Currently no reports of chest pain, shortness of breath, or palpitations. Patient is afebrile. No reports of nausea or vomiting and patient is tolerating diet. Patient will be discharged to [facility] today. guarded prognosis. Physical exam: Gen: This is a pleasant 87-year-old female who is awake, alert and oriented 3, thin built, elderly appearing female HEENT: Head is atraumatic, normocephalic. Pupils equal, round. Sclerae is anicteric. NECK: Supple. No JVD. No lymphadenopathy. No thyromegaly. LUNGS: Clear to auscultation. No wheezes or rhonchi. No intercostal retractions. HEART: Regular rate and rhythm. No murmur. ABDOMEN: Soft. Bowel sounds are present. No masses. No tenderness. PEG tube noted EXTREMITIES: No pedal edema. No calf tenderness. NEUROLOGICAL: Patient is awake, alert and oriented x3. Cranial nerves 2 through 12 are grossly intact. diffusely weak Please refer to medication reconciliation sheet for a list of medications. The impression and plan of care has been dictated by Brea Barclay, Nurse Practitioner as directed. Dr. Howie MD I have performed a history and examination and MDM of this patient, discussed the same with the dictator, and agree with the dictator's assessment and plan as written ,documented as a scribe. Based on total visit time, I have performed more than 50% of the visit. Patient Condition at Discharge: Fair Plan - Discharge Summary Discharge Rx Participant: No New Discharge Prescriptions: New Heparin Sodium,Porcine (1 ml) [Heparin Sodium] 5,000 unit SQ Q12HR each amLODIPine [Norvasc] 10 mg PO DAILY tab ondansetron HCL [Zofran Oral Soln] 4 mg PO Q8H #5 ml Pantoprazole Sodium [Protonix] 40 mg PO DAILY #30 tab Metoclopramide Oral Soln [Reglan Oral Soln] 10 mg PO TID #10 ml Temazepam [Restoril] 15 mg PO HS PRN 3 Days #3 cap PRN Reason: Insomnia Continue Esomeprazole Magnesium [NexIUM] 40 mg PO DAILY Levothyroxine Sodium [Synthroid] 50 mcg PO DAILY atenoloL 25 mg PO DAILY DULoxetine HCL [Cymbalta] 60 mg PO DAILY polyethylene glycoL 3350 [Miralax] 17 gm PO DAILY predniSONE 5 mg PO DAILY Multivit-Min/Iron/Folic/Lutein [Centrum Silver Women Tablet] 1 tab PO DAILY Carboxymethylcellulose Sodium [Refresh Tears] 1 drop BOTH EYES QID PRN PRN Reason: DRY EYES Rosuvastatin [Crestor] 20 mg PO DAILY lisinopriL [Zestril] 10 mg PO DAILY Fluticasone Nasal [place] [Flonase Nasal [place]] 1 spray EA NOSTRIL DAILY HYDROcodone/APAP 10-325MG [[place] 10-325] 1 tab PO Q6H PRN #3 tab PRN Reason: Pain Discontinued Tofacitinib Citrate [Xeljanz] 5 mg PO BID Sucralfate [Carafate] 1 gm PO AC-BID Discharge Medication List Esomeprazole Magnesium [NexIUM] 40 mg PO DAILY 08/31/13 [History] Levothyroxine Sodium [Synthroid] 50 mcg PO DAILY 08/31/13 [History] atenoloL 25 mg PO DAILY 01/11/14 [History] DULoxetine HCL [Cymbalta] 60 mg PO DAILY 04/05/14 [History] polyethylene glycoL 3350 [Miralax] 17 gm PO DAILY 03/09/15 [History] predniSONE 5 mg PO DAILY 07/16/18 [History] Carboxymethylcellulose Sodium [Refresh Tears] 1 drop BOTH EYES QID PRN 12/28/22 [History] Fluticasone Nasal [place] [Flonase Nasal [place]] 1 spray EA NOSTRIL DAILY 12/28/22 [History] Multivit-Min/Iron/Folic/Lutein [Centrum Silver Women Tablet] 1 tab PO DAILY 12/28/22 [History] Rosuvastatin [Crestor] 20 mg PO DAILY 12/28/22 [History] lisinopriL [Zestril] 10 mg PO DAILY 12/28/22 [History] HYDROcodone/APAP 10-325MG [[place] 10-325] 1 tab PO Q6H PRN #3 tab 01/09/23 [Rx] Heparin Sodium,Porcine (1 ml) [Heparin Sodium] 5,000 unit SQ Q12HR each 01/09/23 [Rx] Metoclopramide Oral Soln [Reglan Oral Soln] 10 mg PO TID #10 ml 01/09/23 [Rx] Pantoprazole Sodium [Protonix] 40 mg PO DAILY #30 tab 01/09/23 [Rx] Temazepam [Restoril] 15 mg PO HS PRN 3 Days #3 cap 01/09/23 [Rx] amLODIPine [Norvasc] 10 mg PO DAILY tab 01/09/23 [Rx] ondansetron HCL [Zofran Oral Soln] 4 mg PO Q8H #5 ml 01/09/23 [Rx] Follow up Appointment(s)/Referral(s): Jeanette Walker MD [STAFF PHYSICIAN] - 02/05/23 Samantha Hodges DO [Primary Care Provider] - 1-2 days Activity/Diet/Wound Care/Special Instructions: Patient is going to [facility] Activity as tolerated Patient is okay for full liquid diet with no straws or carbonated beverages per surgery Patient has been started on tube feedings with Jevity 1.5 continuous goal rate is 21 mL per hour, total volume per day is 504, patient to continue with free water bolus flushes of 30 mL's every 4 hours Monitor for residual Continue with aspiration precautions with head of the bed elevated 45 at all times Patient to follow-up with general surgery outpatient Follow-up with primary care provider on discharge Patient is agreeable to holding xeljanz rheumatology medication while at rehab and will resume once discharged from rehab and follow-up with rheumatology Discharge Disposition: TRANSFER TO SNF/ECF
[2023-01-09 13:46] VITALS: BP 127/71; PULSE 72; RESP 14
--- NOTE | 2023-01-09 14:55 | P.PN ---
Subjective Progress Note Date: 01/09/23 CHIEF COMPLAINT: Dysphagia and weight loss HISTORY OF PRESENT ILLNESS: Patient is status post robotic-assisted laparoscopic reduction of gastric volvulus and repair of incarcerated paraesophageal hiatal hernia with [employer] on 01/03/23. Patient status post EGD with dilation and PEG tube placement yesterday 01/07/2023. Tube feeds have been started. Currently at 21 mL per hour. No residual reported. Patient denies abdominal pain. Patient did have some vomiting. Afebrile. WBC 10.8 HGB 9.3. [facility] PHYSICAL EXAM: VITAL SIGNS: Reviewed GENERAL: Well-developed in no acute distress. HEENT: No sclera icterus. Extraocular movements grossly intact. Moist buccal mucosa. Head is atraumatic, normocephalic. Hears conversational speech. No nasal drainage. NECK: Supple without lymphadenopathy. CHEST: Non-labored respirations and equal bilateral excursions. CARDIOVASCULAR: Palpable 2+ radial pulses. ABDOMEN: Soft. Nondistended. PEG tube site clean dry and intact MUSCULOSKELETAL: No clubbing or cyanosis. NEUROLOGIC: No focal or lateralizing signs. Cranial nerves II through XII grossly intact. PSYCH: Appropriate affect. Alert and oriented to person, place and time. SKIN: Well perfused. Good skin turgor. ASSESSMENT: Paraesophageal midline diaphragmatic hernia, 10 x 4 cm, with incarceration and gastric volvulus, mesentery axial rotation Severe protein malnutrition secondary to inadequate protein intake. Anorexia Under weight, BMI 17.2 Hypoalbuminemia. Esophageal obstruction Severe esophageal dysmotility Gastroesophageal reflux disease with erosive esophagitis Hypophosphatemia PLAN: -Continue to titrate tube feeds per dietitian recommendations -Recommend lifelong gastrostomy tube feedings due to severe esophageal obstruction/protein malnutrition -Continue full liquid diet with no straws or carbonated beverages -Patient can be discharged from surgical standpoint when medically cleared Physician Senior Medical Transcriptionist note has been reviewed by physician. Signing provider agrees with the documented findings, assessment, and plan of care. Objective - Vital Signs Vital signs: Vital Signs Temp 97.4 F L 01/09/23 07:38 Pulse 94 01/09/23 07:38 Resp 16 01/09/23 07:38 BP 151/69 01/09/23 07:38 Pulse Ox 95 01/09/23 00:52 FiO2 Intake & Output 01/08/23 01/09/23 01/09/23 18:59 06:59 18:59 Intake Total 1000 Output Total 0 0 Balance 1000 0 0 Weight 130 kg 58.967 kg Intake: Oral 1000 Output: Stool 0 0 Other: Voiding Method External Catheter External Catheter External Catheter # Voids 1 200 - Labs CBC & Chem 7: 01/04/23 06:20 01/09/23 06:08 Labs: Abnormal Lab Results - Last 24 Hours (Table) 01/09/23 Range/Units 06:08 Chloride 111 H (96-109) mmol/L BUN/Creatinine Ratio 26.43 H (12.00-20.00) Ratio Glucose 180 H (70-110) mg/dL Calcium 7.9 L (8.7-10.3) mg/dL Phosphorus 1.2 L (2.4-5.1) mg/dL
== END 2023-01-09 14:25 | DRG 326 ==
LOC: EC 16:20 → 4SSUR 20:48
PROVIDERS: ADMIT Hospitalist; ATTEND Hospitalist
PROC: 0DB78ZX Excision of Stomach, Pylorus, Via Natural or Artificial Opening Endoscopic, Diagnostic (ICD-10-PCS; 2022-12-31)
PROC: 0D738ZZ Dilation of Lower Esophagus, Via Natural or Artificial Opening Endoscopic (ICD-10-PCS; 2022-12-31)
PROC: 0DB58ZX Excision of Esophagus, Via Natural or Artificial Opening Endoscopic, Diagnostic (ICD-10-PCS; 2022-12-31)
PROC: 0DB98ZX Excision of Duodenum, Via Natural or Artificial Opening Endoscopic, Diagnostic (ICD-10-PCS; 2022-12-31)
PROC: 0BUT4JZ Supplement Diaphragm with Synthetic Substitute, Percutaneous Endoscopic Approach (ICD-10-PCS; principal; 2023-01-03 08:30)
PROC: 0DS64ZZ Reposition Stomach, Percutaneous Endoscopic Approach (ICD-10-PCS; principal; 2023-01-03 08:30)
PROC: 0DJ08ZZ Inspection of Upper Intestinal Tract, Via Natural or Artificial Opening Endoscopic (ICD-10-PCS; principal; 2023-01-03 08:30)
PROC: 8E0W4CZ Robotic Assisted Procedure of Trunk Region, Percutaneous Endoscopic Approach (ICD-10-PCS; principal; 2023-01-03 08:30)
PROC: 0D738ZZ Dilation of Lower Esophagus, Via Natural or Artificial Opening Endoscopic (ICD-10-PCS; 2023-01-07)
PROC: 3E0G76Z Introduction of Nutritional Substance into Upper GI, Via Natural or Artificial Opening (ICD-10-PCS; 2023-01-07)
PROC: 0DH63UZ Insertion of Feeding Device into Stomach, Percutaneous Approach (ICD-10-PCS; 2023-01-07 08:00)
DX: K22.2 Esophageal obstruction (principal); E43 Unspecified severe protein-calorie malnutrition; E87.1 Hypo-osmolality and hyponatremia; K44.0 Diaphragmatic hernia with obstruction, without gangrene; Z68.1 Body mass index [BMI] 19.9 or less, adult; K22.10 Ulcer of esophagus without bleeding; J98.11 Atelectasis; E83.39 Other disorders of phosphorus metabolism; E88.09 Other disorders of plasma-protein metabolism, not elsewhere classified; I11.9 Hypertensive heart disease without heart failure; M06.9 Rheumatoid arthritis, unspecified; J44.9 Chronic obstructive pulmonary disease, unspecified; Z66 Do not resuscitate; K22.4 Dyskinesia of esophagus; K22.89 Other specified disease of esophagus; K29.50 Unspecified chronic gastritis without bleeding; K29.80 Duodenitis without bleeding; K31.89 Other diseases of stomach and duodenum; G89.4 Chronic pain syndrome; I45.10 Unspecified right bundle-branch block; M19.90 Unspecified osteoarthritis, unspecified site; K21.00 Gastro-esophageal reflux disease with esophagitis, without bleeding; E78.5 Hyperlipidemia, unspecified; E03.9 Hypothyroidism, unspecified; I08.3 Combined rheumatic disorders of mitral, aortic and tricuspid valves; F32.A Depression, unspecified; K66.0 Peritoneal adhesions (postprocedural) (postinfection); R47.02 Dysphasia; F41.1 Generalized anxiety disorder; M54.2 Cervicalgia; M40.204 Unspecified kyphosis, thoracic region; M25.559 Pain in unspecified hip; R26.9 Unspecified abnormalities of gait and mobility; Z79.890 Hormone replacement therapy; Z79.52 Long term (current) use of systemic steroids; Z79.622 Long term (current) use of Janus kinase inhibitor; Z79.899 Other long term (current) drug therapy; Z87.891 Personal history of nicotine dependence; Z96.653 Presence of artificial knee joint, bilateral; Z71.3 Dietary counseling and surveillance
CPT/HCPCS: 36415; 43239; 43246; 43249; 71046; 71260; 74160; 74210; 74220; 80048; 80053; 81003; 83735; 84100; 84134; 85025; 88305; 93005; 93306; 94760; 96360; 96361; 99285

== ENCOUNTER 2023-02-20 07:15 | Day surgery (SDC) | payer MEDICARE, BC ==
[2023-02-18 14:47] VITALS: BMI 20.2
[~2023-02-20 07:15] MED LIST changes: -LACTATED RINGERS 1,000 ML IV SCH; +LIDOCAINE 1% (10MG/ML) FOR IV START INTRADERMA PRN; -LIDOCAINE 1% 20 ML VIAL (10MG/ML) FOR IV START INTRADERMA PRN
[2023-02-20 07:55] VITALS: TEMP 98.6
[2023-02-20 08:02] LABS: Glucose,Whole Blood 114 mg/dL (70-110)
--- NOTE | 2023-02-20 08:02 | P.GSHP ---
History of Present Illness H&P Date: 02/20/23 CHIEF COMPLAINT: Esophageal stricture HISTORY OF PRESENT ILLNESS: The patient is a 88-year-old female who presents reports dysphagia. Upper endoscopy was offered for further evaluation and management. She is also seeking removal of her gastrostomy tube PAST MEDICAL HISTORY: Please see list. PAST SURGICAL HISTORY: Please see list. MEDICATIONS: Please see list. ALLERGIES: Please see list. SOCIAL HISTORY: No illicit drug use FAMILY HISTORY: No reports of Crohn disease or ulcerative colitis. REVIEW OF ORGAN SYSTEMS: CONSTITUTIONAL: No reports of fevers or chills. GI: Denies any blood in stools or constipation. PHYSICAL EXAM: VITAL SIGNS: Stable GENERAL: Well-developed and pleasant in no acute distress. HEENT: No scleral icterus. Extraocular movements grossly intact. Moist buccal mucosa. NECK: Supple without lymphadenopathy. CHEST: Unlabored respirations. Equal bilateral excursions. CARDIOVASCULAR: Regular rate and rhythm. Distal 2+ pulses. ABDOMEN: Soft, nondistended. MUSCULOSKELETAL: No clubbing, cyanosis, or edema. ASSESSMENT: 1. Esophageal stricture 2. Gastrostomy tube status PLAN: 1. Recommend proceeding with an upper endoscopy with rigid dilators. 2. With adequate weight gain, possible removal of gastrostomy tube Past Medical History Past Medical History: GERD/Reflux, Hyperlipidemia, Hypertension, Osteoarthritis (OA), Rheumatoid Arthritis (RA), Thyroid Disorder Additional Past Medical History / Comment(s): diverticulitis,chronic neck pain, hx ulcerative esophagus, anemia, WOUND TO BOTTOM OF LT FOOT callus -, CHRONIC HIP PAIN, bp maintained without meds at this time History of Any Multi-Drug Resistant Organisms: None Reported Past Surgical History: Adenoidectomy, Appendectomy, Joint Replacement, Tonsillectomy Additional Past Surgical History / Comment(s): BILATERAL KNEES REPLACEMENTS,EXPLORATORY LAPAROTOMY, EGD & colonoscopy, DRAINED 150 CC FLUID FROM RT KNEE AT [facility] YEARS AGO , BILAT CATARACTS, hiatal hernia put feeding tube in , and on 02/20/23 may take it out. has been able to swallow on own Past Anesthesia/Blood Transfusion Reactions: No Reported Reaction Smoking Status: Former smoker - Past Family History Mother Family Medical History: No Reported History Medications and Allergies Home Medications Medication Instructions Recorded Confirmed Type Levothyroxine Sodium [Synthroid] 50 mcg PO DAILY 08/31/13 02/18/23 History atenoloL 25 mg PO DAILY 01/11/14 02/18/23 History DULoxetine HCL [Cymbalta] 60 mg PO DAILY 04/05/14 02/18/23 History polyethylene glycoL 3350 [Miralax] 17 gm PO DAILY 03/09/15 02/18/23 History predniSONE 5 mg PO DAILY 07/16/18 02/18/23 History Carboxymethylcellulose Sodium 1 drop BOTH EYES QID PRN 12/28/22 02/18/23 History [Refresh Tears] Fluticasone Nasal [place] [Flonase 1 spray EA NOSTRIL DAILY 12/28/22 02/18/23 History Nasal [place]] Multivit-Min/Iron/Folic/Lutein 1 tab PO DAILY 12/28/22 02/18/23 History [Centrum Silver Women Tablet] Rosuvastatin [Crestor] 20 mg PO DAILY 12/28/22 02/18/23 History lisinopriL [Zestril] 10 mg PO DAILY 12/28/22 02/18/23 History HYDROcodone/APAP 10-325MG [[place] 1 tab PO Q6H PRN #3 tab 01/09/23 02/18/23 Rx 10-325] Metoclopramide Oral Soln [Reglan 10 mg PO TID #10 ml 01/09/23 02/18/23 Rx Oral Soln] Lactose-Reduced Food [Ensure Plus 237 ml PO DAILY 02/18/23 02/18/23 History High Protein] Nitroglycerin Sl Tabs [Nitrostat] 0.4 mg SUBLINGUAL Q5M PRN 02/18/23 02/18/23 History Omeprazole 20 mg PO DAILY 02/18/23 02/18/23 History Sucralfate [Carafate] 1 gm PO BID 02/18/23 02/18/23 History ondansetron HCL [Zofran Oral Soln] 4 mg PO Q8H 02/18/23 02/18/23 History Allergies Allergy/AdvReac Type Severity Reaction Status Date / Time No Known Allergies Allergy Verified 02/20/23 07:53 Surgical - Exam Vital Signs Temp Pulse Resp BP Pulse Ox 98.6 F 67 20 183/76 98 02/20/23 07:42 02/20/23 07:42 02/20/23 07:42 02/20/23 07:42 02/20/23 07:42
[2023-02-20] MEDS: LACTATED RINGERS 1,000 ML IV SCH ×2 (08:03→08:06)
[2023-02-20] MEDS ORDERED: PROPOFOL 10 MG/ML 20 ML VIAL IV ONE (08:07)
[2023-02-20] MEDS ORDERED: hydrALAZINE HCL 20 MG/ML 1 ML VIAL ONE (09:11)
[2023-02-20] MEDS ORDERED: hydrALAZINE HCL 20 MG/ML 1 ML VIAL IVP ONE (09:12)
[2023-02-20 09:44] VITALS: BP 154/73; PULSE 69; RESP 16
--- NOTE | 2023-02-20 09:48 | P.PCN ---
Date of Procedure: 02/20/23 Description of Procedure: PREOPERATIVE DIAGNOSIS: Esophageal obstruction Dysphagia Esophageal dysmotility Protein malnutrition Gastrostomy tube status with malfunction Gastroesophageal reflux disease History of paraesophageal hiatal hernia status post repair POSTOPERATIVE DIAGNOSIS: Esophageal obstruction Esophageal dysmotility Protein malnutrition Gastrostomy tube status with malfunction Gastroesophageal reflux disease History of paraesophageal hiatal hernia status post repair OPERATION: Esophagogastroduodenoscopy with rigid dilator over the guidewire 57 Fr with dilation Esophagogastroduodenoscopy with cold forceps biopsies esophagus Esophagogastroduodenoscopy with removal of foreign body/gastrostomy tube using snare retrieval SURGEON: Jeanette Walker MD ANESTHESIA: MAC. INDICATIONS: The patient is a 88-year-old male who presents with history of esophageal obstructions, dysphagia, paraesophageal hiatal hernia repair. She reports 10 pound weight gain and not using her feeding tube for 3 weeks. Benefits and risks of the procedure were described. Informed consent was obtained. DESCRIPTION: The patient was brought into the endoscopy suite and laid in the left lateral decubitus position. After a timeout was confirmed, the procedure was initiated. An Olympus gastroscope was passed into the posterior oropharynx moderate yeast was identified with biopsies obtained. The scope was passed down to the distal esophagus. To address the upper and lower esophageal stenosis, rigid dilator over guidewire was selected. Next using an Portuguese rigid dilator, a guidewire was placed through the gastroscope. Next the scope was withdrawn. A 57-Maldivian rigid Portuguese dilator was passed carefully along the posterior oropharynx to 50 cm and left in place for 2-3 minutes stretch. The dilator was withdrawn including the guidewire. The scope was reentered along the posterior oropharynx with no findings of full- thickness tear of the upper esophageal sphincter. Additional findings below. Next, gastrostomy tubing was cut and snared with removal via the mouth. Within the stomach, no recurrent hiatal hernia was identified. Hill grade 1 lower esophageal valve identified. LA grade B erosive esophagitis was identified. No full-thickness injury was encountered. The GI tract was desufflated. The patient tolerated the procedure well. FINDINGS: Upper and lower esophageal stenosis dilated 57-Maldivian rigid dilator Diaphragmatic hiatus at 38 cm from the incisors Squamocolumnar junction 38 cm from the incisors. No recurrent hiatal hernia Moderate candidiasis of the esophagus with biopsies obtained Gastrostomy tube removed without sequelae LA grade B erosive esophagitis Hill grade 1 lower esophageal valve. RECOMMENDATIONS: Omeprazole 40 mg daily Upper endoscopy with dilation as needed Plan - Discharge Summary Discharge Rx Participant: No New Discharge Prescriptions: New Omeprazole [PriLOSEC] 40 mg PO DAILY #30 cap Continue Levothyroxine Sodium [Synthroid] 50 mcg PO DAILY atenoloL 25 mg PO DAILY DULoxetine HCL [Cymbalta] 60 mg PO DAILY polyethylene glycoL 3350 [Miralax] 17 gm PO DAILY predniSONE 5 mg PO DAILY Multivit-Min/Iron/Folic/Lutein [Centrum Silver Women Tablet] 1 tab PO DAILY Carboxymethylcellulose Sodium [Refresh Tears] 1 drop BOTH EYES QID PRN PRN Reason: DRY EYES Rosuvastatin [Crestor] 20 mg PO DAILY lisinopriL [Zestril] 10 mg PO DAILY Fluticasone Nasal [place] [Flonase Nasal [place]] 1 spray EA NOSTRIL DAILY Metoclopramide Oral Soln [Reglan Oral Soln] 10 mg PO TID #10 ml HYDROcodone/APAP 10-325MG [[place] 10-325] 1 tab PO Q6H PRN #3 tab PRN Reason: Pain Sucralfate [Carafate] 1 gm PO BID Nitroglycerin Sl Tabs [Nitrostat] 0.4 mg SUBLINGUAL Q5M PRN PRN Reason: Chest Pain Lactose-Reduced Food [Ensure Plus High Protein] 237 ml PO DAILY ondansetron HCL [Zofran Oral Soln] 4 mg PO Q8H Discontinued Omeprazole 20 mg PO DAILY Discharge Medication List Levothyroxine Sodium [Synthroid] 50 mcg PO DAILY 08/31/13 [History] atenoloL 25 mg PO DAILY 01/11/14 [History] DULoxetine HCL [Cymbalta] 60 mg PO DAILY 04/05/14 [History] polyethylene glycoL 3350 [Miralax] 17 gm PO DAILY 03/09/15 [History] predniSONE 5 mg PO DAILY 07/16/18 [History] Carboxymethylcellulose Sodium [Refresh Tears] 1 drop BOTH EYES QID PRN 12/28/22 [History] Fluticasone Nasal [place] [Flonase Nasal [place]] 1 spray EA NOSTRIL DAILY 12/28/22 [History] Multivit-Min/Iron/Folic/Lutein [Centrum Silver Women Tablet] 1 tab PO DAILY 12/28/22 [History] Rosuvastatin [Crestor] 20 mg PO DAILY 12/28/22 [History] lisinopriL [Zestril] 10 mg PO DAILY 12/28/22 [History] HYDROcodone/APAP 10-325MG [[place] 10-325] 1 tab PO Q6H PRN #3 tab 01/09/23 [Rx] Metoclopramide Oral Soln [Reglan Oral Soln] 10 mg PO TID #10 ml 01/09/23 [Rx] Lactose-Reduced Food [Ensure Plus High Protein] 237 ml PO DAILY 02/18/23 [History] Nitroglycerin Sl Tabs [Nitrostat] 0.4 mg SUBLINGUAL Q5M PRN 02/18/23 [History] Sucralfate [Carafate] 1 gm PO BID 02/18/23 [History] ondansetron HCL [Zofran Oral Soln] 4 mg PO Q8H 02/18/23 [History] Omeprazole [PriLOSEC] 40 mg PO DAILY #30 cap 02/20/23 [Rx] Follow up Appointment(s)/Referral(s): Jeanette Walker MD [STAFF PHYSICIAN] - 03/26/23 10:30 am Patient Instructions/Handouts: *Surgery [facility] - (Anesthesia) Discharge Instructions Outpatient Surgery, Level 3 National Dysphagia Diet (DC), Upper Endoscopy (DC), Esophageal Dilation (GEN) Activity/Diet/Wound Care/Special Instructions: Blenderized diet. Discharge Disposition: HOME SELF-CARE
== END 2023-02-20 10:00 | disposition home or self-care (01) ==
LOC: ORWHC2ENDO 07:15
PROVIDERS: ATTEND Surgery Plastic and Reconstructive Surgery
DX: K22.2 Esophageal obstruction (principal); K22.4 Dyskinesia of esophagus; E46 Unspecified protein-calorie malnutrition; K21.9 Gastro-esophageal reflux disease without esophagitis; I10 Essential (primary) hypertension; E78.5 Hyperlipidemia, unspecified; G89.29 Other chronic pain; M06.9 Rheumatoid arthritis, unspecified; M19.90 Unspecified osteoarthritis, unspecified site; F41.9 Anxiety disorder, unspecified; F32.A Depression, unspecified; Z43.1 Encounter for attention to gastrostomy; Z96.653 Presence of artificial knee joint, bilateral; Z79.890 Hormone replacement therapy; Z90.49 Acquired absence of other specified parts of digestive tract; Z79.52 Long term (current) use of systemic steroids; Z79.83 Long term (current) use of bisphosphonates; Z87.891 Personal history of nicotine dependence; Z79.899 Other long term (current) drug therapy
CPT/HCPCS: 88305; 43239; 43246; 43249; J0360; J2704

== ENCOUNTER 2023-06-12 08:21 | Day surgery (SDC) | payer MEDICARE, BC ==
[2023-06-07 15:07] VITALS: BMI 20.3
--- NOTE | 2023-06-12 08:38 | P.GSHP ---
History of Present Illness H&P Date: 06/12/23 CHIEF COMPLAINT: Esophageal stricture HISTORY OF PRESENT ILLNESS: The patient is a 88-year-old female who presents reports dysphagia. Upper endoscopy was offered for further evaluation and management. PAST MEDICAL HISTORY: Please see list. PAST SURGICAL HISTORY: Please see list. MEDICATIONS: Please see list. ALLERGIES: Please see list. SOCIAL HISTORY: No illicit drug use FAMILY HISTORY: No reports of Crohn disease or ulcerative colitis. REVIEW OF ORGAN SYSTEMS: CONSTITUTIONAL: No reports of fevers or chills. GI: Denies any blood in stools or constipation. PHYSICAL EXAM: VITAL SIGNS: Stable GENERAL: Well-developed and pleasant in no acute distress. HEENT: No scleral icterus. Extraocular movements grossly intact. Moist buccal mucosa. NECK: Supple without lymphadenopathy. CHEST: Unlabored respirations. Equal bilateral excursions. CARDIOVASCULAR: Regular rate and rhythm. Distal 2+ pulses. ABDOMEN: Soft, nondistended. MUSCULOSKELETAL: No clubbing, cyanosis, or edema. ASSESSMENT: 1. Esophageal stricture PLAN: 1. Recommend proceeding with an upper endoscopy with rigid dilators. Past Medical History Past Medical History: GERD/Reflux, Hyperlipidemia, Hypertension, Osteoarthritis (OA), Rheumatoid Arthritis (RA), Thyroid Disorder Additional Past Medical History / Comment(s): diverticulitis,chronic neck pain, hx ulcerative esophagus, anemia, WOUND TO BOTTOM OF LT FOOT, CHRONIC HIP PAIN History of Any Multi-Drug Resistant Organisms: None Reported Past Surgical History: Adenoidectomy, Appendectomy, Joint Replacement, Tonsillectomy Additional Past Surgical History / Comment(s): BILATERAL KNEE REPLACEMENTS, EXPLORATORY LAPAROTOMY, EGD & colonoscopy, BILAT CATARACTS, hiatal hernia put feeding tube in and removal-has been able to swallow on own Past Anesthesia/Blood Transfusion Reactions: No Reported Reaction Past Psychological History: Anxiety, Depression Smoking Status: Former smoker Past Alcohol Use History: None Reported Additional Past Alcohol Use History / Comment(s): QUIT SMOKING APPROX 1989, SMOKED FOR APPROX 20 YRS Past Drug Use History: None Reported - Past Family History Mother Family Medical History: No Reported History Medications and Allergies Home Medications Medication Instructions Recorded Confirmed Type Levothyroxine Sodium [Synthroid] 50 mcg PO DAILY 08/31/13 06/07/23 History atenoloL 25 mg PO DAILY 01/11/14 06/07/23 History DULoxetine HCL [Cymbalta] 60 mg PO DAILY 04/05/14 06/07/23 History polyethylene glycoL 3350 [Miralax] 17 gm PO DAILY 03/09/15 06/07/23 History predniSONE 5 mg PO DAILY 07/16/18 06/07/23 History Multivit-Min/Iron/Folic/Lutein 1 tab PO DAILY 12/28/22 06/07/23 History [Centrum Silver Women Tablet] lisinopriL [Zestril] 10 mg PO DAILY 12/28/22 06/07/23 History Metoclopramide Oral Soln [Reglan 10 mg PO TID #10 ml 01/09/23 06/07/23 Rx Oral Soln] Nitroglycerin Sl Tabs [Nitrostat] 0.4 mg SUBLINGUAL Q5M PRN 02/18/23 06/07/23 History Sucralfate [Carafate] 1 gm PO BID 02/18/23 06/07/23 History ondansetron HCL [Zofran Oral Soln] 4 mg PO TID-W/MEALS PRN 02/18/23 06/07/23 History Omeprazole [PriLOSEC] 40 mg PO DAILY #30 cap 02/20/23 06/07/23 Rx Acetaminophen Tab [Tylenol] 500 mg PO Q6HR PRN 05/17/23 06/07/23 History Artificial Tears-Hypromellose 1 drop BOTH EYES Q6HR PRN 05/17/23 06/07/23 History [Artificial Tear Drops] Atorvastatin [Lipitor] 40 mg PO HS 05/17/23 06/07/23 History Escitalopram [Lexapro] 10 mg PO DAILY 05/17/23 06/07/23 History Melatonin 3 mg PO HS PRN 05/17/23 06/07/23 History Sodium Chloride [Saline Mist] 1 spray NASAL Q2H PRN 05/17/23 06/07/23 History Tetrahydrozoline/Polyvin A/Pov 1 drop BOTH EYES DAILY PRN 05/17/23 06/07/23 History [Clear Eyes Triple Action Drop] HYDROcodone/APAP 10-325MG [Ruby 1 tab PO BID PRN 06/07/23 06/07/23 History 10-325] Allergies Allergy/AdvReac Type Severity Reaction Status Date / Time No Known Allergies Allergy Verified 06/07/23 14:23
[2023-06-12 09:15] LABS: Glucose,Whole Blood 90 mg/dL (70-110)
[2023-06-12] MEDS: LACTATED RINGERS 1,000 ML IV SCH (09:15)
[2023-06-12 09:31] VITALS: RESP 16; TEMP 97.2
[2023-06-12] MEDS ORDERED: PROPOFOL 10 MG/ML 20 ML VIAL IV ONE (10:02)
--- NOTE | 2023-06-12 10:22 | P.PCN ---
Date of Procedure: 06/12/23 Description of Procedure: PREOPERATIVE DIAGNOSIS: Esophageal obstruction Dysphagia Esophageal dysmotility Gastroesophageal reflux disease History of paraesophageal hiatal hernia status post repair POSTOPERATIVE DIAGNOSIS: Esophageal obstruction Dysphagia Esophageal dysmotility Gastroesophageal reflux disease History of paraesophageal hiatal hernia status post repair OPERATION: Esophagogastroduodenoscopy with rigid dilator over the guidewire 54 Fr with dilation SURGEON: Jeanette Walker MD ANESTHESIA: MAC. INDICATIONS: The patient is a 88-year-old male who presents with esophageal obstructions, dysphagia. Benefits and risks of the procedure were described. Informed consent was obtained. DESCRIPTION: The patient was brought into the endoscopy suite and laid in the left lateral decubitus position. After a timeout was confirmed, the procedure was initiated. An Olympus gastroscope was passed into the posterior oropharynx moderate yeast was identified with biopsies obtained. The scope was passed down to the distal esophagus. To address the upper and lower esophageal stenosis, rigid dilator over guidewire was selected. Next using an [place]an rigid dilator, a guidewire was placed through the gastroscope. Next the scope was withdrawn. A 54-Arabic rigid [place] dilator was passed carefully along the posterior oropharynx to 50 cm and left in place for 2-3 minutes stretch. The dilator was withdrawn including the guidewire. The scope was reentered along the posterior oropharynx with no findings of full- thickness tear of the upper esophageal sphincter. Additional findings below. Within the stomach, no recurrent hiatal hernia was identified. Hill grade 1 lower esophageal valve identified. LA grade B erosive esophagitis was identified. No full-thickness injury was encountered. The GI tract was desufflated. The patient tolerated the procedure well. FINDINGS: Upper and lower esophageal stenosis dilated 54-Arabic rigid dilator Diaphragmatic hiatus at 38 cm from the incisors Squamocolumnar junction 38 cm from the incisors. No recurrent hiatal hernia LA grade B erosive esophagitis Hill grade 1 lower esophageal valve. RECOMMENDATIONS: Continur omeprazole 40 mg daily Upper endoscopy with dilation as needed Plan - Discharge Summary Discharge Rx Participant: No New Discharge Prescriptions: No Action Levothyroxine Sodium [Synthroid] 50 mcg PO DAILY atenoloL 25 mg PO DAILY DULoxetine HCL [Cymbalta] 60 mg PO DAILY polyethylene glycoL 3350 [Miralax] 17 gm PO DAILY predniSONE 5 mg PO DAILY Multivit-Min/Iron/Folic/Lutein [Centrum Silver Women Tablet] 1 tab PO DAILY Artificial Tears-Hypromellose [Artificial Tear Drops] 1 drop BOTH EYES Q6HR PRN PRN Reason: DRY EYES Melatonin 3 mg PO HS PRN PRN Reason: Insomnia Sodium Chloride [Saline Mist] 1 spray NASAL Q2H PRN PRN Reason: Congestion Tetrahydrozoline/Polyvin A/Pov [Clear Eyes Triple Action Drop] 1 drop BOTH EYES DAILY PRN PRN Reason: DRY EYES HYDROcodone/APAP 10-325MG [[place] 10-325] 1 tab PO BID PRN PRN Reason: Pain lisinopriL [Zestril] 10 mg PO DAILY Metoclopramide Oral Soln [Reglan Oral Soln] 10 mg PO TID #10 ml Sucralfate [Carafate] 1 gm PO BID Nitroglycerin Sl Tabs [Nitrostat] 0.4 mg SUBLINGUAL Q5M PRN PRN Reason: Chest Pain ondansetron HCL [Zofran Oral Soln] 4 mg PO TID-W/MEALS PRN PRN Reason: Nausea Omeprazole [PriLOSEC] 40 mg PO DAILY #30 cap Acetaminophen Tab [Tylenol] 500 mg PO Q6HR PRN PRN Reason: Pain Atorvastatin [Lipitor] 40 mg PO HS Escitalopram [Lexapro] 10 mg PO DAILY Discharge Medication List Levothyroxine Sodium [Synthroid] 50 mcg PO DAILY 08/31/13 [History] atenoloL 25 mg PO DAILY 01/11/14 [History] DULoxetine HCL [Cymbalta] 60 mg PO DAILY 04/05/14 [History] polyethylene glycoL 3350 [Miralax] 17 gm PO DAILY 03/09/15 [History] predniSONE 5 mg PO DAILY 07/16/18 [History] Multivit-Min/Iron/Folic/Lutein [Centrum Silver Women Tablet] 1 tab PO DAILY 12/28/22 [History] lisinopriL [Zestril] 10 mg PO DAILY 12/28/22 [History] Metoclopramide Oral Soln [Reglan Oral Soln] 10 mg PO TID #10 ml 01/09/23 [Rx] Nitroglycerin Sl Tabs [Nitrostat] 0.4 mg SUBLINGUAL Q5M PRN 02/18/23 [History] Sucralfate [Carafate] 1 gm PO BID 02/18/23 [History] ondansetron HCL [Zofran Oral Soln] 4 mg PO TID-W/MEALS PRN 02/18/23 [History] Omeprazole [PriLOSEC] 40 mg PO DAILY #30 cap 02/20/23 [Rx] Acetaminophen Tab [Tylenol] 500 mg PO Q6HR PRN 05/17/23 [History] Artificial Tears-Hypromellose [Artificial Tear Drops] 1 drop BOTH EYES Q6HR PRN 05/17/23 [History] Atorvastatin [Lipitor] 40 mg PO HS 05/17/23 [History] Escitalopram [Lexapro] 10 mg PO DAILY 05/17/23 [History] Melatonin 3 mg PO HS PRN 05/17/23 [History] Sodium Chloride [Saline Mist] 1 spray NASAL Q2H PRN 05/17/23 [History] Tetrahydrozoline/Polyvin A/Pov [Clear Eyes Triple Action Drop] 1 drop BOTH EYES DAILY PRN 05/17/23 [History] HYDROcodone/APAP 10-325MG [[place] 10-325] 1 tab PO BID PRN 06/07/23 [History]
[2023-06-12 11:05] VITALS: BP 184/75; PULSE 63
== END 2023-06-12 11:16 | disposition home or self-care (01) ==
LOC: ORWHC2ENDO 08:21
PROVIDERS: ATTEND Surgery Plastic and Reconstructive Surgery
DX: K22.2 Esophageal obstruction (principal); K21.00 Gastro-esophageal reflux disease with esophagitis, without bleeding; K22.4 Dyskinesia of esophagus; Z87.19 Personal history of other diseases of the digestive system; Z98.890 Other specified postprocedural states; Z79.890 Hormone replacement therapy; Z79.52 Long term (current) use of systemic steroids; Z79.899 Other long term (current) drug therapy; Z87.891 Personal history of nicotine dependence
CPT/HCPCS: 43248; J2704

== ENCOUNTER 2023-08-21 06:49 | Day surgery (SDC) | payer MEDICARE, BC ==
--- NOTE | 2023-08-21 07:35 | P.GSHP ---
History of Present Illness H&P Date: 08/21/23 CHIEF COMPLAINT: Esophageal stricture HISTORY OF PRESENT ILLNESS: The patient is a 88-year-old female who presents reports dysphagia. Upper endoscopy was offered for further evaluation and management. PAST MEDICAL HISTORY: Please see list. PAST SURGICAL HISTORY: Please see list. MEDICATIONS: Please see list. ALLERGIES: Please see list. SOCIAL HISTORY: No illicit drug use FAMILY HISTORY: No reports of Crohn disease or ulcerative colitis. REVIEW OF ORGAN SYSTEMS: CONSTITUTIONAL: No reports of fevers or chills. GI: Denies any blood in stools or constipation. PHYSICAL EXAM: VITAL SIGNS: Stable GENERAL: Well-developed and pleasant in no acute distress. HEENT: No scleral icterus. Extraocular movements grossly intact. Moist buccal mucosa. NECK: Supple without lymphadenopathy. CHEST: Unlabored respirations. Equal bilateral excursions. CARDIOVASCULAR: Regular rate and rhythm. Distal 2+ pulses. ABDOMEN: Soft, nondistended. MUSCULOSKELETAL: No clubbing, cyanosis, or edema. ASSESSMENT: 1. Esophageal stricture PLAN: 1. Recommend proceeding with an upper endoscopy with rigid dilators. Past Medical History Past Medical History: GERD/Reflux, Hyperlipidemia, Hypertension, Osteoarthritis (OA), Rheumatoid Arthritis (RA), Thyroid Disorder Additional Past Medical History / Comment(s): diverticulitis,chronic neck pain, hx ulcerative esophagus, anemia, CHRONIC HIP PAIN, finishing amoxicillin today for dental work/infection, dysphagia currently History of Any Multi-Drug Resistant Organisms: None Reported Past Surgical History: Adenoidectomy, Appendectomy, Joint Replacement, Tonsillectomy Additional Past Surgical History / Comment(s): BILATERAL KNEE REPLACEMENTS,EXPLORATORY LAPAROTOMY, EGD & colonoscopy, BILAT CATARACTS, PEG tube in past-removed, recent EGD in 2023 Past Anesthesia/Blood Transfusion Reactions: No Reported Reaction Smoking Status: Former smoker - Past Family History Mother Family Medical History: No Reported History Medications and Allergies Home Medications Medication Instructions Recorded Confirmed Type Levothyroxine Sodium [Synthroid] 50 mcg PO DAILY 08/31/13 08/20/23 History atenoloL 25 mg PO DAILY 01/11/14 08/20/23 History DULoxetine HCL [Cymbalta] 60 mg PO DAILY 04/05/14 08/20/23 History polyethylene glycoL 3350 [Miralax] 17 gm PO DAILY 03/09/15 08/20/23 History predniSONE 5 mg PO DAILY 07/16/18 08/20/23 History Multivit-Min/Iron/Folic/Lutein 1 tab PO DAILY 12/28/22 08/20/23 History [Centrum Silver Women Tablet] lisinopriL [Zestril] 10 mg PO DAILY 12/28/22 08/20/23 History Metoclopramide Oral Soln [Reglan 10 mg PO TID #10 ml 01/09/23 08/20/23 Rx Oral Soln] Nitroglycerin Sl Tabs [Nitrostat] 0.4 mg SUBLINGUAL Q5M PRN 02/18/23 08/20/23 History Sucralfate [Carafate] 1 gm PO BID 02/18/23 08/20/23 History ondansetron HCL [Zofran Oral Soln] 4 mg PO TID-W/MEALS PRN 02/18/23 08/20/23 History Omeprazole [PriLOSEC] 40 mg PO DAILY #30 cap 02/20/23 08/20/23 Rx Acetaminophen Tab [Tylenol] 500 mg PO Q6HR PRN 05/17/23 08/20/23 History Artificial Tears-Hypromellose 1 drop BOTH EYES Q6HR PRN 05/17/23 08/20/23 History [Artificial Tear Drops] Atorvastatin [Lipitor] 40 mg PO HS 05/17/23 08/20/23 History Escitalopram [Lexapro] 10 mg PO DAILY 05/17/23 08/20/23 History Melatonin 3 mg PO HS PRN 05/17/23 08/20/23 History Sodium Chloride [Saline Mist] 1 spray NASAL Q2H PRN 05/17/23 08/20/23 History Amoxicillin 500 mg PO Q8H 08/20/23 08/20/23 History Loratadine [Claritin] 10 mg PO DAILY 08/20/23 08/20/23 History Menthol [Biofreeze] 1 applic TOPICAL Q6H PRN 08/20/23 08/20/23 History Naloxone HCl 0.4 mg INJ ONCE PRN 08/20/23 08/20/23 History Allergies Allergy/AdvReac Type Severity Reaction Status Date / Time No Known Allergies Allergy Verified 08/21/23 07:34 Surgical - Exam Vital Signs Temp Pulse Resp BP Pulse Ox 97.6 F 62 18 177/78 97 08/21/23 07:33 08/21/23 07:33 08/21/23 07:33 08/21/23 07:33 08/21/23 07:33
[2023-08-21] MEDS: LACTATED RINGERS 1,000 ML IV SCH (07:40)
[2023-08-21 07:55] LABS: Glucose,Whole Blood 101 mg/dL (70-110)
[2023-08-21] MEDS ORDERED: PROPOFOL 10 MG/ML 20 ML VIAL IV ONE (08:04)
[2023-08-21 08:08] VITALS: TEMP 97.6
--- NOTE | 2023-08-21 08:30 | P.PCN ---
Date of Procedure: 08/21/23 Description of Procedure: PREOPERATIVE DIAGNOSIS: Esophageal obstruction Dysphagia Esophageal dysmotility Gastroesophageal reflux disease History of paraesophageal hiatal hernia status post repair POSTOPERATIVE DIAGNOSIS: Esophageal obstruction Dysphagia Esophageal dysmotility Gastroesophageal reflux disease History of paraesophageal hiatal hernia status post repair OPERATION: Esophagogastroduodenoscopy with rigid dilator over the guidewire 57 Fr with dilation SURGEON: Jeanette Walker MD ANESTHESIA: MAC. INDICATIONS: The patient is a 88-year-old male who presents with esophageal obstructions, dysphagia. Benefits and risks of the procedure were described. Informed consent was obtained. DESCRIPTION: The patient was brought into the endoscopy suite and laid in the left lateral decubitus position. After a timeout was confirmed, the procedure was initiated. An Olympus gastroscope was passed into the posterior oropharynx moderate yeast was identified with biopsies obtained. The scope was passed down to the distal esophagus. To address the upper and lower esophageal stenosis, rigid dilator over guidewire was selected. Next using an [place] rigid dilator, a guidewire was placed through the gastroscope. Next the scope was withdrawn. A 57-English rigid [place] dilator was passed carefully along the posterior oropharynx to 50 cm and left in place for 2-3 minutes stretch. The dilator was withdrawn including the guidewire. The scope was reentered along the posterior oropharynx with no findings of full- thickness tear of the upper esophageal sphincter. Additional findings below. Within the stomach, no recurrent hiatal hernia was identified. Hill grade 1 lower esophageal valve identified. LA grade B erosive esophagitis was identified. No full-thickness injury was encountered. The GI tract was desufflated. The patient tolerated the procedure well. FINDINGS: Upper and lower esophageal stenosis dilated 57-English rigid dilator Diaphragmatic hiatus at 38 cm from the incisors Squamocolumnar junction 38 cm from the incisors. No recurrent hiatal hernia LA grade B erosive esophagitis Hill grade 1 lower esophageal valve. Moderate fluid along esophagus RECOMMENDATIONS: Upper endoscopy with dilation as needed May need feeding tube for presence of silent aspiration Plan - Discharge Summary Discharge Rx Participant: Yes New Discharge Prescriptions: Continue Levothyroxine Sodium [Synthroid] 50 mcg PO DAILY atenoloL 25 mg PO DAILY DULoxetine HCL [Cymbalta] 60 mg PO DAILY polyethylene glycoL 3350 [Miralax] 17 gm PO DAILY predniSONE 5 mg PO DAILY Multivit-Min/Iron/Folic/Lutein [Centrum Silver Women Tablet] 1 tab PO DAILY Artificial Tears-Hypromellose [Artificial Tear Drops] 1 drop BOTH EYES Q6HR PRN PRN Reason: DRY EYES Melatonin 3 mg PO HS PRN PRN Reason: Insomnia Sodium Chloride [Saline Mist] 1 spray NASAL Q2H PRN PRN Reason: Congestion Naloxone HCl 0.4 mg INJ ONCE PRN PRN Reason: opiod overdose Amoxicillin 500 mg PO Q8H lisinopriL [Zestril] 10 mg PO DAILY Metoclopramide Oral Soln [Reglan Oral Soln] 10 mg PO TID #10 ml Sucralfate [Carafate] 1 gm PO BID Nitroglycerin Sl Tabs [Nitrostat] 0.4 mg SUBLINGUAL Q5M PRN PRN Reason: Chest Pain ondansetron HCL [Zofran Oral Soln] 4 mg PO TID-W/MEALS PRN PRN Reason: Nausea Omeprazole [PriLOSEC] 40 mg PO DAILY #30 cap Acetaminophen Tab [Tylenol] 500 mg PO Q6HR PRN PRN Reason: Pain Atorvastatin [Lipitor] 40 mg PO HS Escitalopram [Lexapro] 10 mg PO DAILY Loratadine [Claritin] 10 mg PO DAILY Menthol [Biofreeze] 1 applic TOPICAL Q6H PRN PRN Reason: Pain Discharge Medication List Levothyroxine Sodium [Synthroid] 50 mcg PO DAILY 08/31/13 [History] atenoloL 25 mg PO DAILY 01/11/14 [History] DULoxetine HCL [Cymbalta] 60 mg PO DAILY 04/05/14 [History] polyethylene glycoL 3350 [Miralax] 17 gm PO DAILY 03/09/15 [History] predniSONE 5 mg PO DAILY 07/16/18 [History] Multivit-Min/Iron/Folic/Lutein [Centrum Silver Women Tablet] 1 tab PO DAILY 12/28/22 [History] lisinopriL [Zestril] 10 mg PO DAILY 12/28/22 [History] Metoclopramide Oral Soln [Reglan Oral Soln] 10 mg PO TID #10 ml 01/09/23 [Rx] Nitroglycerin Sl Tabs [Nitrostat] 0.4 mg SUBLINGUAL Q5M PRN 10/30/23 [History] Sucralfate [Carafate] 1 gm PO BID 02/18/23 [History] ondansetron HCL [Zofran Oral Soln] 4 mg PO TID-W/MEALS PRN 02/18/23 [History] Omeprazole [PriLOSEC] 40 mg PO DAILY #30 cap 02/20/23 [Rx] Acetaminophen Tab [Tylenol] 500 mg PO Q6HR PRN 05/17/23 [History] Artificial Tears-Hypromellose [Artificial Tear Drops] 1 drop BOTH EYES Q6HR PRN 05/17/23 [History] Atorvastatin [Lipitor] 40 mg PO HS 05/17/23 [History] Escitalopram [Lexapro] 10 mg PO DAILY 05/17/23 [History] Melatonin 3 mg PO HS PRN 05/17/23 [History] Sodium Chloride [Saline Mist] 1 spray NASAL Q2H PRN 05/17/23 [History] Amoxicillin 500 mg PO Q8H 08/20/23 [History] Loratadine [Claritin] 10 mg PO DAILY 08/20/23 [History] Menthol [Biofreeze] 1 applic TOPICAL Q6H PRN 08/20/23 [History] Naloxone HCl 0.4 mg INJ ONCE PRN 08/20/23 [History] Follow up Appointment(s)/Referral(s): Jeanette Walker MD [STAFF PHYSICIAN] - 08/27/23 9:45 am Patient Instructions/Handouts: Esophageal Dilation (DC) Discharge Disposition: HOME SELF-CARE
[2023-08-21 08:59] VITALS: RESP 16
[2023-08-21 09:50] VITALS: BP 172/76; PULSE 61
== END 2023-08-21 09:10 | disposition home or self-care (01) ==
LOC: ORWHC2ENDO 06:49
PROVIDERS: ATTEND Surgery Plastic and Reconstructive Surgery
DX: K21.00 Gastro-esophageal reflux disease with esophagitis, without bleeding (principal); K22.2 Esophageal obstruction; K22.4 Dyskinesia of esophagus; K44.9 Diaphragmatic hernia without obstruction or gangrene; I10 Essential (primary) hypertension; E78.5 Hyperlipidemia, unspecified; M19.90 Unspecified osteoarthritis, unspecified site; E07.9 Disorder of thyroid, unspecified; M06.9 Rheumatoid arthritis, unspecified; G89.29 Other chronic pain; Z90.49 Acquired absence of other specified parts of digestive tract; Z90.89 Acquired absence of other organs; Z87.891 Personal history of nicotine dependence; Z79.890 Hormone replacement therapy; Z79.52 Long term (current) use of systemic steroids; Z79.899 Other long term (current) drug therapy
CPT/HCPCS: 43248; J2704